=== PATIENT | female | born 1960 | race Caucasian/White ===

== ENCOUNTER 2020-04-09 10:43 | Observation (INO) ==
[2020-04-09] MEDS ORDERED: fentaNYL citrate 100 MCG/2 ML VIAL ONE (11:38)
[2020-04-09] MEDS ORDERED: MIDAZOLAM HCL 5 MG/ML 1 ML VIAL ONE (11:38)
--- NOTE | 2020-04-09 11:49 | History & Physical Bridge Note ---
Date of Service April 09, 2020 History & Physical Bridge Note I have examined the patient, reviewed the History & Physical and in the interval since the performance of the History & Physical I have noted the following changes of clinical significance: no changes noted
--- NOTE | 2020-04-09 11:49 | Pre Anesthesia Assessment ---
Date of Service April 09, 2020 Pre Sedation Assessment Vital Signs Temp Pulse Resp BP Pulse Ox 04/09/20 11:41 98.2 F 69 16 111/62 98 Pre-Sedation Airway Assessment Smoking Status: Current every day smoker (STARTED AT AGE 16) Short, Thick Neck: No Thyromental Distance: > or= 3.5 Finger Breadths Oral Cavity: + WNL Mallampati Class: I ASA: ASA3 NPO Status Date of Last Intake of Fluids: 04/08/20 Time of Last Intake of Fluids: 21:30 Date of Last Intake of Solid Food: 04/08/20 Time of Last Intake of Solid Foods: 21:30 Notes The planned sedation has been discussed with the patient. Informed Consent was obtained. I have identified the patient, determined the appropriateness of sedation and have assessed the patient immediately prior to the procedure. All medicine(s) and interventions are by my order.
--- NOTE | 2020-04-09 14:03 | Procedure Note ---
Procedure Note: Bronchoscopy Procedure PREOPERATIVE DIAGNOSIS: Right lung mass with mediastinal adenopathy POSTOPERATIVE DIAGNOSIS: Same as above RAPID ON SITE POSITIVE LYH NODES FOR MALIGNANCY INCLUDE: 4L and 4 suspicious for possible malignancy PROCEDURES PERFORMED: Endobronchial ultrasound with transbronchial needle aspiraion PROCEDURALIST: Rito Sierra MD WIRE STRAIGHTENER: None. ANESTHESIA: Local regional using 1% lidocaine and concious sedation as noted in the EMR and note. For milligrams of IV Versed and 175 mcg of fentanyl were used for the procedure INDICATIONS FOR PROCEDURE: The procedures were explained to the patient. All risks, benefits, and options were discussed. The risks include but were not limited to bleeding, infection, and pneumothorax. All questions were answered, and the patient wished for us to proceed with the procedure. DESCRIPTION OF PROCEDURE: The bronchoscope was inserted through the mouth. Vocal cords were moving normally. Alysa and trachea appeared sharp and normal. Minimal secretions were noted bilaterally. We then switched over to endobronchial ultrasound and were able to visualize patient's 11 R, 10 R, 7, 11 L, 10 L, 4R and 4L. Numerous passes of stations 11 R, 7, 4R and 4L were performed. Suspicious material was seen on the biopsy samples. Final pathology will be pending. There was some bleeding noted throughout the procedure and biopsy sites. This was controlled with saline. Roughly 10 mL of blood loss was seen. The scope was withdrawn to the trachea and no significant bleeding was noted afterwards. Scope was then completely withdrawn. Patient had some issues with oxygenation post procedure and was difficult to arouse. She is currently on 15 L of oxygen via oxygen mask. She was given a DuoNeb. She is slowly starting to arouse. Post procedure chest x-ray is pending. Await biopsy results.
--- NOTE | 2020-04-09 14:41 | XRay Report ---
XR chest 1V portable CLINICAL HISTORY: post bronchoscopy with bx COMPARISON STUDY: Chest CT March 03, 2020. PET/CT April 02, 2020. FINDINGS: There is no pneumothorax following bronchoscopy. Note is again made of a right upper lobe n odule. There is no evidence for pulmonary edema. Cardiac size is normal. There is mild left basilar o pacity. IMPRESSION: 1. No pneumothorax following bronchoscopy. Redemonstration of the right upper lobe nodule. 2. Mild left basilar opacity. ACT 112: Negative or not required by law. Electronically signed by: Clint Welch M.D. 04/09/2020 2:40 PM
[2020-04-09] MEDS ORDERED: ONDANSETRON INJ 2 MG/ML 2 ML VIAL ONE (15:22)
--- NOTE | 2020-04-09 17:07 | History & Physical Report ---
Date of Service April 09, 2020 History of Present Illness Primary Care Provider: Felisa Grimes MD Allergies Allergy/AdvReac Type Severity Reaction Status Date / Time No Known Allergies Allergy Verified 03/13/20 08:52 Home Medications Medication Instructions Recorded Confirmed Type albuterol sulfate 90 mcg/actuation 2 inh INHALATION QID PRN #6.7 g 02/11/20 03/13/20 Rx aerosol inhaler tiotropium bromide 2.5 2 puff INHALATION DAILY #4 g 03/12/20 03/13/20 Rx mcg/actuation mist for inhalation azithromycin 250 mg tablet See Rx Instructions PO .COMPLEX #6 03/13/20 03/13/20 Rx tab Past Med/Surg History Surgical History S/P appendectomy S/P removal of right ovary S/P tooth extraction Family History Other Breast cancer Colorectal cancer Diabetes Myocardial infarction Ovarian cancer Prostate cancer Social History Smoking Status: Current every day smoker (STARTED AT AGE 16) Age Started Using Tobacco: 16; packs per day: 2; Cigarettes Per Day: 40; Second Hand Exposure: Yes; Hx Alcohol Use: No Hx Substance Use: No Preferred Language: Austrian Visual Impairment: No Limitations Hearing Ability: Normal marital status: Single Current Living Situation Comment: lives with sister 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, Regularly: Yes Physical Activity Frequency: Does not Exercise Physical Activity Frequency Comment: physical job Seatbelt Use: always Results & Data Results & Data ([facility]) Vital Signs (Past 12 Hours) Vital Signs Temp Pulse Pulse Resp BP Pulse Ox 04/09/20 16:45 80 12 94/58 L 88 L 04/09/20 16:30 84 12 102/56 L 88 L 04/09/20 16:15 71 12 96/56 L 92 04/09/20 16:00 70 12 108/65 92 04/09/20 15:45 71 12 114/67 92 04/09/20 15:43 91 04/09/20 15:30 74 12 111/70 92 04/09/20 15:15 73 12 118/63 92 04/09/20 15:00 71 12 111/66 92 04/09/20 14:45 71 12 107/71 92 04/09/20 14:30 64 12 107/66 92 04/09/20 14:15 63 12 95/64 L 92 04/09/20 14:00 70 12 100/59 L 92 04/09/20 13:45 60 12 119/71 92 04/09/20 13:40 65 16 122/61 94 04/09/20 13:35 62 16 114/62 92 04/09/20 13:30 75 16 133/66 94 04/09/20 13:25 59 L 12 126/69 93 04/09/20 13:20 70 12 105/59 L 92 04/09/20 13:15 68 12 115/60 93 04/09/20 13:10 80 12 88/58 L 92 04/09/20 13:05 77 12 105/59 L 94 04/09/20 13:00 78 12 96/57 L 96 04/09/20 12:55 74 16 98/65 L 04/09/20 12:50 75 16 113/60 96 04/09/20 12:45 72 12 88/46 L 92 04/09/20 12:40 71 12 89/40 L 93 04/09/20 12:35 70 10 L 97/56 L 91 04/09/20 12:30 80 10 L 107/60 92 04/09/20 12:25 87 16 133/69 94 04/09/20 12:20 84 16 106/56 L 95 04/09/20 12:15 68 12 130/70 93 04/09/20 11:41 36.8 C 69 16 111/62 98 Code Status & VTE Plan VTE Prophylaxis Plan VTE Prophylaxis will be ordered: Yes PG Care Time/CCT Total # of Minutes Spent Total Time Spent with Patient: Total time spent is greater than 50% in coordination of care (as documented) at patient's floor/unit and/or counseling patient: Coding
--- NOTE | 2020-04-09 17:22 | History & Physical Report ---
Date of Service April 09, 2020 Assessment & Plan (1) Lung mass: Patient with a 3 cm right-sided lung mass referred to Dr. Sierra for outpatient EBUS and mediastinal biopsy The patient became hypoxic during the procedure. She required 2 L of supplemental oxygen via nasal cannula to maintain SaO2 greater than 90% We will admit the patient to the medical floor overnight for observation Repeat two-view chest x-ray in the morning Continue Brio Ellipta and Incruse Ellipta Duo nebs as needed Repeat CBC in the morning Pulmonary will be consulted to follow (2) COPD (chronic obstructive pulmonary disease): Patient list of COPD as an outpatient No evidence of pulmonary function testing PFTs are being set up as an outpatient For now, we will admit and continue on Brio Ellipta as well as Incruse Ellipta to provide ICS/LABA/AC coverage Continue supplemental oxygen to maintain SaO2 between 88 and 92% (3) Tobacco use: Tobacco user since age 16 [id number] history Discussed need for complete abstinence Concern for malignancy in the lung We will discuss NicoDerm patch options with patient (4) DVT prophylaxis: The patient did have some endobronchial bleeding during the procedure At this time we will hold on chemical prophylaxis SCDs are ordered Ambulate as tolerated Please refer to Dr. Garcia's addendum for further additions and corrections. Admission and Anticipated Discharge Date Admission Date: 04/09/2020 History of Present Illness Primary Care Provider: Felisa Grimes MD Attending: Dr. Covarrubias This is a 60-year-old female that follows with Dr. Felisa Grimes at the [facility] [place]. She is referred as a new patient for evaluation of a 2.7 cm lung mass in the right lung. She was seen by Derick Simmons PA-C and referred for EBUS evaluation with Dr. Sierra. This was performed today. Patient did have some blood loss during the procedure and developed hypoxia. She had no acute distress. It was felt best that she be admitted overnight for observation and repeat chest x-ray in the morning. At this time she is on supplemental oxygen 2 L/min via nasal cannula and oxygenating well. She has no chest pain or tightness. She has no hemoptysis. She has a current every day smoker of approximately 1 pack/day ([id number] history). This was discussed with her in the outpatient arena regarding complete abstention. Dr. Sierra will be consulted to follow along with the pulmonary service. Although patient has a history of COPD she does not have PFTs on schedule. She also only use albuterol at home. She was recently put on Trelegy after the appointment with QUYNH Simmons. Patient has a past medical history including tobacco abuse of 1 pack/day. 2 cm right-sided lung nodule. COPD. Left wrist pain. The patient has no other acute complaints. Allergies Allergy/AdvReac Type Severity Reaction Status Date / Time No Known Allergies Allergy Verified 03/13/20 08:52 Home Medications Medication Instructions Recorded Confirmed Type albuterol sulfate 90 mcg/actuation 2 inh INHALATION QID PRN #6.7 g 02/11/20 03/13/20 Rx aerosol inhaler tiotropium bromide 2.5 2 puff INHALATION DAILY #4 g 03/12/20 03/13/20 Rx mcg/actuation mist for inhalation azithromycin 250 mg tablet See Rx Instructions PO .COMPLEX #6 03/13/20 03/13/20 Rx tab Past Med/Surg History Medical History (Updated 04/09/20 @ 17:18 by Ion Rai PA-C) COPD (chronic obstructive pulmonary disease) Lung mass Tobacco use Wrist pain, left Surgical History S/P appendectomy S/P removal of right ovary S/P tooth extraction all of them Family History Other Breast cancer Colorectal cancer Diabetes Myocardial infarction Ovarian cancer Prostate cancer Social History Smoking Status: Current every day smoker Age Started Using Tobacco: 16; packs per day: 2; Cigarettes Per Day: 40; Second Hand Exposure: No; Do You Dip or Chew Tobacco: No; Tobacco Cessation Education Requested by Patient: No Hx Alcohol Use: No Hx Substance Use: No Preferred Language: Welsh Communication Ability: Effective Visual Impairment: No Limitations Hearing Ability: Normal Information Security Consultant Required: No Beliefs That Will Affect Care: None marital status: Single Current Living Situation: Family Current Living Situation Comment: lives w/ sister, georgi 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 Other Information That Helps Us Care for You: No Feels Safe at Home: Yes Safety Concerns: Feels Safe At This Time Dental Care, Regularly: Yes Physical Activity Frequency: Does not Exercise Physical Activity Frequency Comment: physical job Seatbelt Use: always Assistive Devices: Glasses Assistive Devices Comment: pt left glasses in the car Review of Systems Review of Systems: All systems reviewed & are unremarkable except as noted in HPI & below Physical Exam Physical Exam: GENERAL : No acute distress EYES: No icterus, gaze conjugate NOSE: No evidence of epistaxis MOUTH: No lesions or candidiasis NECK: Supple LUNGS: Scattered bronchospasm. No rales or rhonchi appreciated HEART: Regular, rate controlled ABDOMEN: Soft, NT, ND, BS Present EXTREMITIES: No LE edema, pedal pulses intact NEURO: A&OX3 Constitutional: WD/WN, vitals as above Eyes: normal visual antonio by confrontation and + anicteric sclerae Neck: normal visual inspection and trachea midline Respiratory: normal respiratory effort; no respiratory distress Auscultation: no crackles and no wheezes Cardiovascular: Rate/Rhythm: regular rate and regular rhythm Gastrointestinal (Abdomen): Inspection/Auscultation: abdomen not distended Percussion/Palpation: abdomen soft; abdomen nontender Musculoskeletal: Head/Neck/Chest: normocephalic and head atraumatic Neg for peripheral LE edema, + pedal pulses Skin: no rashes, warm and dry Neurologic: awake; not confused Speech / Cognition: normal speech Psychiatric: A+Ox3, euthymic affect Lymphatic: Exam as done by Mary Covarrubias DO Results & Data Results & Data ([facility]) Vital Signs (Past 12 Hours) Vital Signs Temp Pulse Pulse Resp BP Pulse Ox 04/09/20 16:45 80 12 94/58 L 88 L 04/09/20 16:30 84 12 102/56 L 88 L 04/09/20 16:15 71 12 96/56 L 92 04/09/20 16:00 70 12 108/65 92 04/09/20 15:45 71 12 114/67 92 04/09/20 15:43 91 04/09/20 15:30 74 12 111/70 92 04/09/20 15:15 73 12 118/63 92 04/09/20 15:00 71 12 111/66 92 04/09/20 14:45 71 12 107/71 92 04/09/20 14:30 64 12 107/66 92 04/09/20 14:15 63 12 95/64 L 92 04/09/20 14:00 70 12 100/59 L 92 04/09/20 13:45 60 12 119/71 92 04/09/20 13:40 65 16 122/61 94 04/09/20 13:35 62 16 114/62 92 04/09/20 13:30 75 16 133/66 94 04/09/20 13:25 59 L 12 126/69 93 04/09/20 13:20 70 12 105/59 L 92 04/09/20 13:15 68 12 115/60 93 04/09/20 13:10 80 12 88/58 L 92 04/09/20 13:05 77 12 105/59 L 94 04/09/20 13:00 78 12 96/57 L 96 04/09/20 12:55 74 16 98/65 L 04/09/20 12:50 75 16 113/60 96 04/09/20 12:45 72 12 88/46 L 92 04/09/20 12:40 71 12 89/40 L 93 04/09/20 12:35 70 10 L 97/56 L 91 04/09/20 12:30 80 10 L 107/60 92 04/09/20 12:25 87 16 133/69 94 04/09/20 12:20 84 16 106/56 L 95 04/09/20 12:15 68 12 130/70 93 04/09/20 11:41 36.8 C 69 16 111/62 98 Laboratory Results Labs were completed on 04/03/2020 as an outpatient. Sodium 139, potassium 4.7, chloride 108, carbon dioxide 28, BUN 18, creatinine 0.9, glucose 92, WBC 8.43, RBC 4.63, hemoglobin 14.6, hematocrit 43.4, platelet count 307 Diagnostic Findings 03/03/2020: CT scan of chest: Patient has an irregular marginated pleural- based right upper lobe pulmonary mass measuring 27 mm x 22 mm x 18 mm. There are mildly enlarged mediastinal lymph nodes. There is a 13 mm precarinal lymph node. There is a 10.5 mm lower right paratracheal lymph node. The the no evid ence of any lytic or blastic bony lesions. Emphysematous changes throughout. 02/11/2020: Chest x-ray: 2.5 cm masslike opacity in the lateral subpleural right upper lung. Code Status & VTE Plan Code Status Level 1 full resuscitation VTE Prophylaxis Plan VTE Prophylaxis will be ordered: Yes Reason for no VTE drug order: Contraindicated (Patient with bleeding post EBUS) Supervising Physician Co-Signing Physician Notes Pt seen and examined by me. Denies chest pain or SOB currently. Tolerating PO without issue. Denies prior home O2 use. Agree with HPI/ROS as noted by PA See above for my exam in PE section Agree with plan as outlined above Hypoxic episode s/p bronch earlier today Maintaining sats in the low 90s on 2L O2 Monitor and wean O2 as able PG Care Time/CCT Total # of Minutes Spent Total Time Spent with Patient: Total time spent is greater than 50% in coordination of care (as documented) at patient's floor/unit and/or counseling patient: 45 minutes independent of any procedures Coding Level of Care Code 52445 OBS Care - Level 3 Diagnoses Lung mass R91.8 COPD (chronic obstructive pulmonary disease) J44.9 COPD type: unspecified COPD Tobacco use Z72.0 DVT prophylaxis Z29.9 Time Spent (min) 45 (1) COPD (chronic obstructive pulmonary disease) COPD type: unspecified COPD Qualified Code(s): J44.9 - Chronic obstructive pulmonary disease, unspecified
[2020-04-09] MEDS ORDERED: MAGNESIUM HYDROXIDE SUSP 30 ML UDC PO PRN (17:49)
[2020-04-09] MEDS ORDERED: POLYETHYLENE (MIRALAX) 17 GM PACK PO PRN (17:49)
[2020-04-09] MEDS ORDERED: ACETAMINOPHEN 325 MG TAB PO PRN (17:49)
[2020-04-09] MEDS ORDERED: ONDANSETRON INJ 2 MG/ML 2 ML VIAL IV PRN (17:49)
[2020-04-09] MEDS ORDERED: ALBUT/IPRATROP 3MG/0.5MG NEB 3 ML VIAL NEB PRN (17:49)
[2020-04-09] MEDS ORDERED: ALUMINUM/MAGNESIUM SUSP 30 ML UDC PO PRN (17:49)
[2020-04-09] MEDS: UMECLIDINIUM BROMIDE 62.5MCG/BLISTER 7 PUFFS/INHALER INH SCH (20:30)
[2020-04-09] MEDS: NICOTINE 21 MG/24 HR TDSY TD SCH (20:30)
[2020-04-09] MEDS: FLUTICASONE/VILANTEROL 100/25MCG 14 PUFFS/INHALER INH SCH (20:31)
[2020-04-09] MEDS ORDERED: methylPREDNISolone 40 MG in SYRINGE 0 ML IV ONE (21:50)
[2020-04-10 07:49] LABS: Basophils # (auto) 0.01 K/uL (0-0.2); Basophils % (auto) 0.1 %; Eosinophils # (auto) 0.01 K/uL (0-0.5); Eosinophils % (auto) 0.1 %; Hemoglobin 14.2 g/dL (12.0-16.0); Immature Granulocytes # (auto) 0.03 K/uL (0.00-0.02); Immature Granulocytes % (auto) 0.4 %; Lymphocytes # (auto) 1.76 K/uL (1.2-3.4); Lymphocytes % (auto) 20.7 %; Mean Corpuscular Hemoglobin 31.3 pg (25-34); Mean Corpuscular Hgb Conc 33.8 g/dL (32-36); Mean Corpuscular Volume 92.7 fL (80-100); Monocytes # (auto) 0.26 K/uL (0.11-0.59); Monocytes % (auto) 3.1 %; Neutrophils # (auto) 6.43 K/uL (1.4-6.5); Neutrophils % (auto) 75.6 %; Platelet Count 279 K/uL (130-400); Red Blood Count 4.53 M/uL (4.2-5.4)
[2020-04-10 08:09] LABS: BUN Creatinine Ratio 14.7 (10-20); Calcium 9.8 mg/dl (8.5-10.1); Creatinine Clr Calc Pharmacy 37.8 ml/min; Est GFR (African American) 81.6; Est GFR (Non-African American) 70.4; Potassium 4.8 mmol/L (3.5-5.1)
[2020-04-10] MEDS: UMECLIDINIUM BROMIDE 62.5MCG/BLISTER 7 PUFFS/INHALER INH SCH (09:02)
[2020-04-10] MEDS: FLUTICASONE/VILANTEROL 100/25MCG 14 PUFFS/INHALER INH SCH (09:02)
[2020-04-10] MEDS: NICOTINE 21 MG/24 HR TDSY TD SCH (09:03)
--- NOTE | 2020-04-10 09:58 | XRay Report ---
XR chest 2V PA/lateral CLINICAL HISTORY: Hypoxia COMPARISON STUDY: PET/CT April 02, 2020. Chest radiograph September 07, 2020. FINDINGS: Right upper lobe nodule is again noted. There is no pneumothorax or pleural effusion. Emphy sema is present with lung hyperexpansion. Cardiac size is normal. Mediastinal contours are normal. A few patchy bilateral airspace opacities are noted. IMPRESSION: 1. A few patchy bilateral airspace opacities which may reflect an infectious process. 2. Emphysema. 3. Redemonstration of the right upper lobe nodule. ACT 112: Negative or not required by law. Electronically signed by: Clint Welch M.D. 04/10/2020 9:56 AM
--- NOTE | 2020-04-10 10:14 | Electrocardiogram Report ---
Test Reason : Blood Pressure : / mmHG Vent. Rate : 076 BPM Atrial Rate : 076 BPM P-R Int : 114 ms QRS Dur : 078 ms QT Int : 380 ms P-R-T Axes : 052 083 062 degrees QTc Int : 427 ms Normal sinus rhythm Low voltage QRS Incomplete right bundle branch block Borderline ECG When compared with ECG of 09-APR-2020 17:28, (unconfirmed) No significant change was found Confirmed by Isidoro Armstrong ([id number]) on 04/10/2020 10:14:01 AM Referred By: Rito Sierra Confirmed By:Jose Antonio Armstrong
--- NOTE | 2020-04-10 11:50 | Pulmonary Consultation ---
Date of Consultation April 10, 2020 Assessment & Plan (1) Hypoxia: Post procedure hypoxia has resolved. I would recommend doing a home oxygen evaluation prior to discharge. I recommend completing a course of 5 days of prednisone, 40 mg daily for possible COPD exacerbation. No antibiotics required at this time. No leukocytosis seen. Afebrile. Her hemoptysis should resolve over the next day or 2 and this is related to the biopsy. Her hemoglobin is stable. Continue her home inhalers. Will need PFTs as an outpatient. We will discussed the results of her biopsy next week. She has an appointment scheduled with Derick Simmons. She is safe to be discharged home at this time. Thank you for the consult. (2) Lung mass: (3) Tobacco use: (4) Hemoptysis: (5) COPD exacerbation: History of Present Illness Reason for Consultation: Hypoxia post-bronchoscopy Requesting Physician: Hospitalist Attending Physician: Hospitalist service History of Present Illness 60-year-old female with past medical history of [id number]-[id number]-year smoking history who presented as an outpatient yesterday for bronchoscopy that was performed by me. I performed an endobronchial ultrasound and biopsies of several lymph node stations. Preliminary diagnosis is that of likely ma lignancy. Final pathology is pending. She had postprocedure hypoxia after receiving 4 mg of Versed and 175 mcg of fentanyl. She also had some mild hemoptysis this morning, but no further hemoptysis this afternoon. She also noted epistaxis this morning. She denies any chest pain. She is in good spirits and eager to go home. She was asking about when she can go back to work. She works in the [employer] services. She does have a desire to continue smoking but notes that the nicotine patch is helping. She previously served in the [employer]. She does note that she had approximately a 10 to 20 pound weight loss over the last 2 years. Her appetite today is generally good. She was given 40 mg of IV Solu-Medrol yesterday. She follows with QUYNH Simmons as an outpatient. She has an outpatient stress test scheduled. She denies any chest pain. She denies any shortness of breath. No fevers or chills. I reviewed the chest x-ray from this morning which did not demonstrate any pneumothorax. Bilateral emphysema was seen. Right upper lobe nodule was seen as well. Allergies Allergy/AdvReac Type Severity Reaction Status Date / Time No Known Allergies Allergy Verified 03/13/20 08:52 Home Medications Medication Instructions Recorded Confirmed Type albuterol sulfate 90 mcg/actuation 2 inh INHALATION QID PRN #6.7 g 02/11/20 03/13/20 Rx aerosol inhaler tiotropium bromide 2.5 2 puff INHALATION DAILY #4 g 03/12/20 03/13/20 Rx mcg/actuation mist for inhalation azithromycin 250 mg tablet See Rx Instructions PO .COMPLEX #6 03/13/20 03/13/20 Rx tab Patient History Medical History COPD (chronic obstructive pulmonary disease) Lung mass Tobacco use Wrist pain, left Surgical History S/P appendectomy S/P removal of right ovary S/P tooth extraction all of them Family History Other Breast cancer Colorectal cancer Diabetes Myocardial infarction Ovarian cancer Prostate cancer Social History Smoking Status: Current every day smoker Age Started Using Tobacco: 16; packs per day: 2; Cigarettes Per Day: 40; Second Hand Exposure: No; Do You Dip or Chew Tobacco: No; Tobacco Cessation Education Requested by Patient: No Hx Alcohol Use: No Hx Substance Use: No Preferred Language: Korean Communication Ability: Effective Visual Impairment: No Limitations Hearing Ability: Normal Fish Flipper Required: No Beliefs That Will Affect Care: None marital status: Single Current Living Situation: Family Current Living Situation Comment: lives w/ sister, georgi 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 Mild cachexia noted. Eyes: PERRL, conjunctivae normal, anicteric sclerae ENMT: external ear and nose normal, oropharynx normal Neck: normal visual inspection Respiratory: No wheezing rubs or rales. No use of accessory muscles. Saturating 95% on room air. Cardiovascular: RRR, no murmur, no edema Gastrointestinal (Abdomen): normal bowel sounds, soft, nontender, no hepatosplenomegaly Musculoskeletal: no cyanosis or clubbing, extremities motor strength 5/5 Skin: no rashes, warm and dry Neurologic: PERRL, EOMI, accommodation nl, no face palsy, no dysarthria Psychiatric: A+Ox3, euthymic affect Results & Data Results & Data ([facility]) Vital Signs (Past 12 Hours) Vital Signs Temp Pulse Resp BP Pulse Ox 04/10/20 09:30 95 04/10/20 07:30 95 04/10/20 07:22 98.1 F 76 15 100/65 95 04/10/20 03:52 98.4 F 85 14 109/64 95 I reviewed the vital signs, labs and imaging PG Care Time/CCT Total # of Minutes Spent Total Time Spent with Patient: Total time spent is greater than 50% in coordination of care (as documented) at patient's floor/unit and/or counseling patient: Coding Level of Care Code 65915 Inpt Consult Level 5 Diagnoses Hypoxia R09.02 Lung mass R91.8 Tobacco use Z72.0 Hemoptysis R04.2 COPD exacerbation J44.1
--- NOTE | 2020-04-10 14:18 | Discharge Summary ---
Date of Service April 10, 2020 Admission HPI Per Admitting Provider Attending: Dr. Covarrubias This is a 60-year-old female that follows with Dr. Felisa Grimes at the [facility] internal medicine office. She is referred as a new patient for evaluation of a 2.7 cm lung mass in the right lung. She was seen by Derick Simmons PA-C and referred for EBUS evaluation with Dr. Sierra. This was performed today. Patient did have some blood loss during the procedure and developed hypoxia. She had no acute distress. It was felt best that she be admitted overnight for observation and repeat chest x-ray in the morning. At this time she is on supplemental oxygen 2 L/min via nasal cannula and oxygenating well. She has no chest pain or tightness. She has no hemoptysis. She has a current every day smoker of approximately 1 pack/day (24-lhfy-exii history). This was discussed with her in the outpatient arena regarding complete abstention. Dr. Sierra will be consulted to follow along with the pulmonary service. Although patient has a history of COPD she does not have PFTs on schedule. She also only use albuterol at home. She was recently put on Trelegy after the appointment with QUYNH Simmons. Patient has a past medical history including tobacco abuse of 1 pack/day. 2 cm right-sided lung nodule. COPD. Left wrist pain. The patient has no other acute complaints. Admission Exam Per Admitting Provider Physical Exam: GENERAL : No acute distress EYES: No icterus, gaze conjugate NOSE: No evidence of epistaxis MOUTH: No lesions or candidiasis NECK: Supple LUNGS: Scattered bronchospasm. No rales or rhonchi appreciated HEART: Regular, rate controlled ABDOMEN: Soft, NT, ND, BS Present EXTREMITIES: No LE edema, pedal pulses intact NEURO: A&OX3 Exam is done by Ion monroy PA-C on admission Constitutional: WD/WN, vitals as above Eyes: normal visual antonio by confrontation and + anicteric sclerae Neck: normal visual inspection and trachea midline Respiratory: normal respiratory effort; no respiratory distress Auscultation: no crackles and no wheezes Cardiovascular: Rate/Rhythm: regular rate and regular rhythm Gastrointestinal (Abdomen): Inspection/Auscultation: abdomen not distended Percussion/Palpation: abdomen soft; abdomen nontender Musculoskeletal: Head/Neck/Chest: normocephalic and head atraumatic Neg for peripheral LE edema, + pedal pulses Skin: no rashes, warm and dry Neurologic: awake; not confused Speech / Cognition: normal speech Psychiatric: A+Ox3, euthymic affect Lymphatic: Exam as done by Mary Covarrubias DO Principal Diagnosis Hypoxia, hemoptysis Discharge Exam GENERAL : No acute distress EYES: No icterus, gaze conjugate NOSE: No evidence of epistaxis MOUTH: No lesions or candidiasis NECK: Supple LUNGS: CTA B/L, no wheezes, rales or rhonchi HEART: Regular, rate controlled ABDOMEN: Soft, NT, ND, BS Present EXTREMITIES: No LE edema, pedal pulses intact NEURO: A&OX3 Discharge Data Allergies Allergy/AdvReac Type Severity Reaction Status Date / Time No Known Allergies Allergy Verified 03/13/20 08:52 Consultations 04/09/20 18:27 Consult Pulmonology Routine Procedures Performed Operation Date: 04/09/20 11:00 Actual Procedures p Endobronchial Ultrasound (EBUS) - [place] [address] Procedure NoteSigned Patient: FRACISCO SIMMONS Date: 04/09/20MR#: [id number] [facility][id number] Phy: Felisa Grimes MDBirth Date: 1960Fam Phy:Age: 60Location: CCSex: F Room/Bed: cc: ~ *NOTICE TO RECEIVING LIBERTARIAN/AGENCY This information is strictly Confidential and protected under [place] law. [place] law prohibits you from making any further disclosure of this information unless further disclosure is expressly permitted by the written consent of the person to whom it pertains or is authorized by law. A general authorization for the release of medical or other information is not sufficient for this purpose. Hospital accepts no responsibility if the information is made available to any other person, INCLUDING THE PATIENT. Procedure Note: Bronchoscopy Procedure PREOPERATIVE DIAGNOSIS: Right lung mass with mediastinal adenopathy POSTOPERATIVE DIAGNOSIS: Same as above RAPID ON S[facility] NOD[facility]IGNANC[facility] INCLUDE: 4L and 4 suspicious for possible malignancy PROCEDURES PERFORMED: Endobronchial ultrasound with transbronchial needle aspiraion PROCEDURALIST: Rito Sierra MD GALLERY OR MUSEUM GUIDE: None. ANESTHESIA: Local regional using 1% lidocaine and concious sedation as noted in the EMR and note. For milligrams of IV Versed and 175 mcg of fentanyl were used for the procedure INDICATIONS FOR PROCEDURE: The procedures were explained to the patient. All risks, benefits, and options were discussed. The risks include but were not limited to bleeding, infection, and pneumothorax. All questions were answered, and the patient wished for us to proceed with the procedure. DESCRIPTION OF PROCEDURE: The bronchoscope was inserted through the mouth. Vocal cords were moving normally. Alysa and trachea appeared sharp and normal. Minimal secretions were noted bilaterally. We then switched over to endobronchial ultrasound and were able to visualize patient's 11 R, 10 R, 7, 11 L, 10 L, 4R and 4L. Numerous passes of stations 11 R, 7, 4R and 4L were performed. Suspicious material was seen on the biopsy samples. Final pathology will be pending. There was some bleeding noted throughout the procedure and biopsy sites. This was controlled with saline. Roughly 10 mL of blood loss was seen. The scope was withdrawn to the trachea and no significant bleeding was noted afterwards. Scope was then completely withdrawn. Patient had some issues with oxygenation post procedure and was difficult to arouse. She is currently on 15 L of oxygen via oxygen mask. She was given a DuoNeb. She is slowly starting to arouse. Post procedure chest x-ray is pending. Await biopsy results. Signed By:<Electronically signed by Rito Sierra MD>04/09/20 [id number] Hospital Course (1) Hypoxia: Post procedure hypoxia has resolved. Discharge on 5 days of prednisone, 40 mg daily for possible COPD exacerbation. No antibiotics needed Hemoptysis should resolve over the next day or 2 and this is related to the biopsy. Continue Trelegy 1 inhalation daily Patient received Brio Ellipta and Incruse Ellipta during hospital stay. This should be held as Trelegy is a combination of these 2 drugs (2) Lung mass: Patient with a 3 cm right-sided lung mass referred to Dr. Sierra for outpatient EBUS and mediastinal biopsy Pathology is still pending at the time of discharge Patient will follow up in the outpatient pulmonary clinic for diagnostic results Patient advised to keep all of her outpatient appointments (3) Tobacco use: Tobacco user since age [age]-rblh-brxy history Discussed need for complete abstinence Concern for malignancy in the lung Patient is aware Discharged home with tobacco cessation pamphlet (4) Hemoptysis: (5) COPD exacerbation: Total Time Total Time Spent Total Time Spent (In Minutes): 34 minutes Total Time Includes: Examination of the Patient, Discharge Planning, Medication Reconciliation and Communication With Other Providers Discharge Plan Discharge Items Patient Disposition: Home - Self-Care Reason For Visit: Lung Mass Discharge Diagnosis: Lung mass and mediastinal adenopathy Activity: Resume your previous activity Lifting: Gradually increase as tolerated Bathing: No limitations Exercise/Sports: Gradually increase as tolerated Weightbearing: Full weightbearing Non-emergency contact: Primary Care Provider Call non-emergency contact if: your symptoms worsen, your pain is not controlled, you have a fever and your temperature is above 101 Follow-up/Referrals: Felisa Grimes MD [Primary Care Provider] - Diet: Regular Addtl Attending Provider Instructions: You may have some soreness of your throat for 1 to 2 days after the procedure. There may also be some blood when you cough. This should resolve over the course of the day. Please go to the emergency department if this becomes significant. Pending Studies at Discharge: Yes Studies:: Pathology from bronchoscopy/EBUS Stand-Alone Forms: [facility], Smoking Cessation Medications and DC Order Prescriptions: New prednisone 20 mg tablet 40 mg PO DAILY 5 Days Qty: 10 RF: 0 Continued Spiriva Respimat 2.5 mcg/actuation mist 2 puff inhalation DAILY Qty: 4 RF: 2 azithromycin 250 mg tablet See Rx Instructions PO .COMPLEX Qty: 6 RF: 0 wwvubnqyqcw-nkhvwvhiz-kgvmuexf [Trelegy Ellipta] 200-62.5-25 mcg blister with device RF: 0 peampdbyvtk-frndfdldb-vwynriig [Trelegy Ellipta] 100-62.5-25 mcg blister with device RF: 0 albuterol sulfate 90 mcg/actuation HFA aerosol inhaler 2 inh inhalation QID PRN (Reason: shortness of breath or wheezing) Qty: 6.7 RF: 3 Discharge Orders: Discharge Order (Routine); Ordered 04/10/20 Ordered By: Ion Pak/Other Patient Handouts: COPD Using Inhalers, COPD Using Inhalers Admission Data Admit Date/Time: 04/09/20 17:04 Attending Provider: Rito Sierra Admit Provider: Rito Sierra Primary Care Provider: Felisa Grimes Other Providers: Rito Sierra Other Interventions: Discharge Summary Assessment (RN) Last Done: 04/10/20 14:28 Supervising Physician Co-Signing Physician Notes Pt seen and examined by me. Denies chest pain or SOB currently. Tolerating PO without issue. Denies prior home O2 use. Agree with HPI/ROS/ DISCHARGE SUMMARY as noted by PA My exam did not defer from one presented above, Agree with plan as outlined above Hypoxic episode resolved These occurred s/p bronch earlier today Coding Level of Care Code D/C Day Management >30 mins Diagnoses Hypoxia R09.02 Lung mass R91.8 Tobacco use Z72.0 Hemoptysis R04.2 COPD exacerbation J44.1 Time Spent (min) 34
--- NOTE | 2020-04-21 12:08 | Coding Query ---
CODING QUERY Dr. Sierra DOS: 04-10-20 To promote full compliance with coding requirements relating to patient care, provider participation is requested in all cases of strand buncher fine wire uncertainty. Please assist us with the question(s) below: Coding Question(s): Documentation states that the patient was admitted due to hypoxia due to becoming hypoxic during the procedure. Please clarify if this was a complication due to a cause and effect relationship between the care provided and the condition or if this was an expected occurrence due to the fact that the patient is a smoker and has COPD. Thank you. Physician's Response(s): Patient was admitted to the hospital due to hypoxia periprocedurally likely related to hypoventilation induced from medication she received for conscious sedation. She does have underlying COPD and lung cancer from her tobacco abuse which contributed to her acute illness. Thank you Marietta Austin [facility] Principal Diagnosis: "that condition established after study, to be chiefly responsible for occasioning the admission of the patient to the hospital for care." Co-Existing Principal Diagnosis: "when two or more diagnoses equally meet the criteria for principal diagnosis as determined by the circumstances of admission, diagnostic work up, and/or therapy provided, and the Alphabetic Index, Tabular List, or another coding guideline does not provide sequencing direction, any one of the diagnoses may be sequenced first." "When the physician has documented what appears to be a current diagnosis in the body of the record, but has not included the diagnosis in the final diagnostic statement, the physician should be asked whether the diagnosis should be added." (Source Coding Clinic 2 QTR90. p3-4) NICK
== END 2020-04-10 14:42 | disposition home or self-care (01) ==
LOC: CC 10:43 → 3N 10:43

== ENCOUNTER 2020-09-29 09:20 | Inpatient (IN) ==
[2020-09-29] MEDS ORDERED: LORazepam 1 MG/2 ML VIAL IV STA (10:04)
[2020-09-29] MEDS ORDERED: SODIUM CHLORIDE 0.9% 500 ML IV SCH (10:15)
[2020-09-29 10:26] LABS: Basophils # (auto) 0.02 K/uL (0-0.2); Basophils % (auto) 0.5 %; Eosinophils # (auto) 0.03 K/uL (0-0.5); Eosinophils % (auto) 0.8 %; Hematocrit (blood only) 32.9 % (37-47); Hemoglobin 11.1 g/dL (12.0-16.0); Lymphocytes # (auto) 0.84 K/uL (1.2-3.4); Lymphocytes % (auto) 21.4 %; Mean Corpuscular Hgb Conc 33.7 g/dL (32-36); Mean Corpuscular Volume 106.8 fL (80-100); Mean Platelet Volume 9.2 fL (7.4-10.4); Monocytes # (auto) 0.46 K/uL (0.11-0.59); Monocytes % (auto) 11.7 %; Neutrophils # (auto) 2.58 K/uL (1.4-6.5); Neutrophils % (auto) 65.6 %; Platelet Count 396 K/uL (130-400); RDW Coefficient of Variation 15.5 % (11.5-14.5); RDW Standard Deviation 60.9 fL (36.4-46.3); Red Blood Count 3.08 M/uL (4.2-5.4); White Blood Count 3.93 K/uL (4.8-10.8)
--- NOTE | 2020-09-29 10:28 | CT Scan Report ---
CT SCAN OF THE BRAIN WITHOUT IV CONTRAST CLINICAL HISTORY: Vertigo. Lung cancer. COMPARISON STUDY: MRI of the brain dated 05/21/2020. TECHNIQUE: Unenhanced axial CT scan of the brain is performed from the vertex to the skull base. A d ose lowering technique was utilized adhering to the principles of ALARA. CT DOSE: 537.48 mGy.cm FINDINGS: Brain parenchyma: There are foci of edema within the high right frontal cortex, best seen on image #2 1 and in the left cerebellum seen on image #7. These are new from 05/21/2020 and highly suspicious for underlying metastatic disease. 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 There is no he morrhage or midline shift. There is no evidence of acute territorial ischemia by CT criteria. No ext ra-axial fluid collection is seen. Ventricles, sulci, cisterns: Normal in configuration. Intracranial vasculature: There is atherosclerotic calcification of the cavernous carotid arteries. Calvarium: Unremarkable. 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 The visualized paranas al sinuses are otherwise clear. The mastoid air cells are well pneumatized. Orbits: The bony orbits are grossly intact. IMPRESSION: 1. There are foci of edema within the high right frontal lobe and the left cerebellar hemisphere. The se are new from the 05/21/2020 MRI and highly suspicious for underlying metastatic disease. Correlatio n with a contrast-enhanced MRI of the brain is recommended for further assessment. 2. There is no hemorrhage, midline shift, or evidence of acute territorial ischemia by CT criteria. ACT 112: Negative or not required by law. Electronically signed by: Ion Goldsmith M.D. 09/29/2020 10:27 AM
[2020-09-29 10:34] LABS: Albumin Level 3.6 gm/dl (3.4-5.0); BUN Creatinine Ratio 11.4 (10-20); Calcium 8.7 mg/dl (8.5-10.1); Est GFR (African American) 95.9 ml/min; Est GFR (Non-African American) 82.8 ml/min; Magnesium 2.1 mg/dl (1.8-2.4); Potassium 4.1 mmol/L (3.5-5.1)
--- NOTE | 2020-09-29 10:35 | XRay Report ---
XR chest 1V portable CLINICAL HISTORY: Dizzy, cough, lung ca COMPARISON STUDY: PET/CT April 02, 2020. FINDINGS: Right internal jugular Bxahvt-l-Viiq is in place. There is no pneumothorax or pleural effus ion. There is no consolidation or evidence for pulmonary edema. Previously described right upper lobe lesion decrease in size since chest radiograph May 14, 2020. There may be adjacent pleural thickeni ng. Cardiac size is normal. IMPRESSION: 1. No acute cardiopulmonary findings. 2. Decrease in size of the previously described right upper lobe lesion. ACT 112: Negative or not required by law. Electronically signed by: Clint Welch M.D. 09/29/2020 10:34 AM
[2020-09-29 10:37] LABS: Albumin Globulin Ratio 1.2 (0.9-2); Bilirubin,Total 0.3 mg/dl (0.2-1); Total Protein 6.6 gm/dl (6.4-8.2)
--- NOTE | 2020-09-29 13:57 | Electrocardiogram Report ---
Test Reason : Blood Pressure : / mmHG Vent. Rate : 066 BPM Atrial Rate : 066 BPM P-R Int : 098 ms QRS Dur : 080 ms QT Int : 418 ms P-R-T Axes : 042 088 071 degrees QTc Int : 438 ms Poor data quality, interpretation may be adversely affected Sinus rhythm with short NE Otherwise normal ECG When compared with ECG of 09-APR-2020 17:58, No significant change was found Confirmed by Mynor Piedra ([id number]) on 09/29/2020 1:56:56 PM Referred By: REFERRED SELF Confirmed By:Mynor Piedra
[2020-09-29] MEDS ORDERED: dexAMETHasone 8 MG in SYRINGE 0 ML IV ONE (13:59)
--- NOTE | 2020-09-29 14:00 | History & Physical Report ---
Date of Service September 29, 2020 Assessment & Plan (1) Dizziness: Plan: 60yo female with history of lung adenocarcinoma s/p chemotherapy and radiation presenting with vertigo. Patient found to have area of edema noted on CT of the head that is concerning for metastatic disease. Dizziness may be secondary to BPPV, brain mets, less likely acute CVA -Admit to medical -Check MRI brain -Meclizine as needed -Fall precautions (2) Brain lesion: Plan: Patient with history of lung adenocarcinoma s/p chemo and XRT completion, CT with area of edema concerning for possible metastatic disease. Finding is new from MRI in May 2020 -Check MRI brain -Dexamethasone 8mg IV x 1 then 4mg IV BID -Consultation with Oncology and Radiation Oncology appreciate (3) COPD (chronic obstructive pulmonary disease): Plan: Chronic. Well managed at present on Trelegy Ellipta and PRN albuterol -Continue home medications -Continue to monitor (4) Adenocarcinoma of lung: Plan: As above, concern for new metastatic disease -MRI brain -Oncology consultation appreciated Plan: F/E/N - Heplock. Electrolytes WNL. Regular diet as tolerated Ppx - SCDs - will avoid chemoppx for now until brain finding is further identified Code - DNR/DNI per discussion with patient. Dispo - Admit to medical History of Present Illness Chief Complaint: Vertigo Primary Care Provider: Felisa Grimes MD Mansi Evans is a 60yo female with history of adenocarcinoma of the lung diagnosed in March 2020 s/p completion of XRT and chemotherapy with Taxol and Carboplatin. Patient woke this AM with vertigo. She had a brief syncopal event at home lasting several seconds. No head trauma/chest pain/palpitations/incontinence/tongue biting. Additionally she feels numbness of her hands and feet which she gets occasionally and has been linked with her prior chemotherapy treatments. Patient presently with dizziness. No additional complaints. She specifically denies MARSHALL/fever/chills/cough/SOB/abdominal pain/nausea/vomiting/diarrhea or constipation. She states she is eating well at home. She lives with her sister. ER Course: Ativan 1mg Dexamethasone 8mg IV NSS x 500mL Allergies Allergy/AdvReac Type Severity Reaction Status Date / Time No Known Allergies Allergy Verified 09/29/20 15:00 Home Medications Medication Instructions Recorded Confirmed Type albuterol sulfate 90 mcg/actuation 2 puff INHALATION QID 09/29/20 09/29/20 History aerosol inhaler fluticasone fur. 100 mcg-umeclid 1 inh INHALATION DAILY 09/29/20 09/29/20 History 62.5 mcg-vilant 25 mcg inhalat.powder (Trelegy Ellipta) Past Med/Surg History Medical History COPD (chronic obstructive pulmonary disease) Last exacerbation approx one month ago Encounter for pre-operative examination History of ovarian cancer SURGERY FOR - AGE 16 Lab test positive for detection of COVID-19 virus Lung cancer Tobacco use Wrist pain, left Surgical History History of anesthesia reaction AFTER BRONCHOSCOPY, HAD TO STAY OVERNIGHT D/T LOW OXYGEN LEVELS - APR 09-2020 History of bronchoscopy (04/09/20) History of surgery (~1976) RIGHT OVARY REMOVED, AND APPENDECTOMY (SAME SURGERY) S/P appendectomy S/P removal of right ovary (~1976) S/P tooth extraction (~10/2019) all of them Family History Sister Age: 64 Diabetes Lung cancer Endometrial ca Mother Diabetes Uncle , 3 paternal uncles and a first cousin Colorectal cancer Other Breast cancer Myocardial infarction Ovarian cancer Prostate cancer Social History Smoking Status: Current every day smoker Age Started Using Tobacco: 16; packs per day: 2; Years Smoked: 44; Cigarettes Per Day: 40; Second Hand Exposure: Yes; Hx Alcohol Use: No Hx Substance Use: No Preferred Language: Belarusian Communication Ability: Effective Visual Impairment: No Limitations Hearing Ability: Normal [employer] Required: No Beliefs That Will Affect Care: None marital status: Single Current Living Situation: Family Current Living Situation Comment: DANIEL QUIÑONES 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 How many Children do You have: 0 How many Children do You have Comment: 0 other: "I hate pills and needles" Feels Safe at Home: Yes Childhood Exposure to Second-Hand Smoke: Yes (dad smoked) Diet Comment: eats well caffeine: Yes (one pot of coffee daily; occasional Coca Cola) during the past year weight has: decreased > 10 lbs Dental Care, Regularly: Yes Physical Activity Frequency: Does not Exercise Physical Activity Frequency Comment: physical job Seatbelt Use: always Sunscreen Use: No Assistive Devices: Glasses Review of Systems Review of Systems: General: Patient denies fevers, chills, malaise, weight loss or weight gain Skin: Patient denies bruising, bleeding or rash HEENT: Patient denies headache, visual changes, sore throat, difficulty swallowing, stiff neck Cardio: Patient denies chest pain, palpitations, shortness of breath Pulmonary: Patient denies cough, wheeze GI: Patient denies abdominal pain, nausea, vomiting, diarrhea, constipation : Patient denies dysuria, frequency, urgency or hematuria Musculoskeletal: Patient denies swelling or pain of the joints, edema Neuro: Patient denies MARSHALL, weakness Psych: Patient denies depression, anxiety Physical Exam Physical Exam: General: thin female patient resting comfortably, NAD, non- toxic in appearance, AA&O x 4 Skin: warm, dry, intact, no rashes or lesions HEENT: NC/AT, PERRL, EOMI, anicteric sclera, conjunctiva without injection, external ear normal to inspection and nontender, nares patent, moist mucus membranes, dentition intact, no oropharyngeal lesions, neck supple, trachea midline, no LAD, no thyromegaly, no JVD Heart: +S1/S2, regular, no m/r/g, Mediport present right chest wall, no erythema, tenderness Lungs: equal air entry bilaterally, no rales/rhonchi/wheezes Abd: +BS, soft, NT/ND, no masses/organomegaly/ascites Ext: warm, 2+ pulses in UE/LE bilaterally, no clubbing/cyanosis or edema Neuro: nonfocal, patient AA&O x 4, speech intact, no facial droop, moving all extremities on command with equal strength 5/5 Results & Data Results & Data ([facility]) Vital Signs (Past 12 Hours) Vital Signs Temp Pulse Resp BP Pulse Ox 09/29/20 13:00 90 19 109/76 92 09/29/20 12:30 74 16 111/70 93 09/29/20 12:00 65 23 103/63 09/29/20 11:30 80 24 115/64 09/29/20 11:00 70 22 118/68 09/29/20 10:30 65 18 123/70 09/29/20 10:00 66 19 130/76 93 09/29/20 09:30 67 19 123/67 98 09/29/20 09:29 56 L 20 123/54 L 98 09/29/20 09:20 36.5 C 70 16 123/67 97 Laboratory Results Laboratory Results WBC 3.93 K/uL (4.8-10.8) L 09/29/20 09:40 RBC 3.08 M/uL (4.2-5.4) L 09/29/20 09:40 Hgb 11.1 g/dL (12.0-16.0) L 09/29/20 09:40 Hct 32.9 % (37-47) L 09/29/20 09:40 MCV 106.8 fL (80-100) H 09/29/20 09:40 MCH 36.0 pg (25-34) H 09/29/20 09:40 MCHC 33.7 g/dL (32-36) 09/29/20 09:40 RDW Std Deviation 60.9 fL (36.4-46.3) H 09/29/20 09:40 RDW Coeff of Jesús 15.5 % (11.5-14.5) H 09/29/20 09:40 Plt Count 396 K/uL (130-400) 09/29/20 09:40 MPV 9.2 fL (7.4-10.4) 09/29/20 09:40 Immature Gran % (Auto) 0.0 % 09/29/20 09:40 Neut % (Auto) 65.6 % 09/29/20 09:40 Lymph % (Auto) 21.4 % 09/29/20 09:40 [place] % (Auto) 11.7 % 09/29/20 09:40 Eos % (Auto) 0.8 % 09/29/20 09:40 Baso % (Auto) 0.5 % 09/29/20 09:40 Neut # (Auto) 2.58 K/uL (1.4-6.5) 09/29/20 09:40 Lymph # (Auto) 0.84 K/uL (1.2-3.4) L 09/29/20 09:40 [place] # (Auto) 0.46 K/uL (0.11-0.59) 09/29/20 09:40 Eos # (Auto) 0.03 K/uL (0-0.5) 09/29/20 09:40 Baso # (Auto) 0.02 K/uL (0-0.2) 09/29/20 09:40 Immature Gran # (Auto) 0.00 K/uL (0.00-0.02) 09/29/20 09:40 Sodium 136 mmol/L (136-145) 09/29/20 09:40 Potassium 4.1 mmol/L (3.5-5.1) 09/29/20 09:40 Chloride 105 mmol/L (98-107) 09/29/20 09:40 Carbon Dioxide 28 mmol/L (21-32) 09/29/20 09:40 Anion Gap 3.0 (3-11) 09/29/20 09:40 BUN 9 mg/dl (7-18) 09/29/20 09:40 Creatinine 0.77 mg/dl (0.6-1.2) 09/29/20 09:40 Est Cr Clr Drug Dosing 45.0 ml/min 09/29/20 09:40 Est GFR ( Amer) 95.9 ml/min 09/29/20 09:40 Est GFR (Non-Af Amer) 82.8 ml/min 09/29/20 09:40 BUN/Creatinine Ratio 11.4 (10-20) 09/29/20 09:40 Glucose 94 mg/dl (70-99) 09/29/20 09:40 Calcium 8.7 mg/dl (8.5-10.1) 09/29/20 09:40 Magnesium 2.1 mg/dl (1.8-2.4) 09/29/20 09:40 Total Bilirubin 0.3 mg/dl (0.2-1) 09/29/20 09:40 AST 19 U/L (15-37) 09/29/20 09:40 ALT 20 U/L (12-78) 09/29/20 09:40 Alkaline Phosphatase 60 U/L (45-117) 09/29/20 09:40 Total Protein 6.6 gm/dl (6.4-8.2) 09/29/20 09:40 Albumin 3.6 gm/dl (3.4-5.0) 09/29/20 09:40 Globulin 3.0 gm/dl (2.5-4.0) 09/29/20 09:40 Albumin/Globulin Ratio 1.2 (0.9-2) 09/29/20 09:40 COVID-19 Eval Order Covid19 at [facility] 09/29/20 10:30 SARS-CoV-2 (PCR) NEGATIVE (Negative) 09/29/20 10:30 Impressions Chest X-Ray 09/29/20 10:04 XR chest 1V portable CLINICAL HISTORY: Dizzy, cough, lung ca COMPARISON STUDY: PET/CT April 02, 2020. FINDINGS: Right internal jugular [id number] is in place. There is no pneumothorax or pleural effusion. There is no consolidation or evidence for pulmonary edema. Previously described right upper lobe lesion decrease in size since chest radiograph May 14, 2020. There may be adjacent pleural thickening. Cardiac size is normal. IMPRESSION: 1. No acute cardiopulmonary findings. 2. Decrease in size of the previously described right upper lobe lesion. ACT 112: Negative or not required by law. Electronically signed by: Clint Welch M.D. 09/29/2020 10:[address] 09/29/20 10:04 CT SCAN OF THE BRAIN WITHOUT IV CONTRAST CLINICAL HISTORY: Vertigo. Lung cancer. COMPARISON STUDY: MRI of the brain dated 05/21/2020. TECHNIQUE: Unenhanced axial CT scan of the brain is performed from the vertex to the skull base. A dose lowering technique was utilized adhering to the principles of ALARA. CT DOSE: 537.48 mGy.cm FINDINGS: Brain parenchyma: There are foci of edema within the high right frontal cortex, best seen on image #21 and in the left cerebellum seen on image #7. These are new from 05/21/2020 and highly suspicious for underlying metastatic disease. 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 There is no hemorrhage or midline shift. There is no evidence of acute territorial ischemia by CT criteria. No extra-axial fluid collection is seen. Ventricles, sulci, cisterns: Normal in configuration. Intracranial vasculature: There is atherosclerotic calcification of the cavernous carotid arteries. Calvarium: Unremarkable. 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 The visualized paranasal sinuses are otherwise clear. The mastoid air cells are well pneumatized. Orbits: The bony orbits are grossly intact. IMPRESSION: 1. There are foci of edema within the high right frontal lobe and the left cerebellar hemisphere. These are new from the 05/21/2020 MRI and highly suspicious for underlying metastatic disease. Correlation with a contrast- enhanced MRI of the brain is recommended for further assessment. 2. There is no hemorrhage, midline shift, or evidence of acute territorial ischemia by CT criteria. ACT 112: Negative or not required by law. Electronically signed by: Ion Goldsmith M.D. 09/29/2020 10:27 AM ECG Additional Comments: Sinus rhythm with short OH Otherwise normal ECG When compared with ECG of 09-APR-2020 17:58, No significant change was found Confirmed by Mynor Piedra ([id number]) on 09/29/2020 1:56:56 PM Code Status & VTE Plan Code Status DNR/DNI per discussion with patient VTE Prophylaxis Plan VTE Prophylaxis will be ordered: Yes PG Care Time/CCT Total # of Minutes Spent Total Time Spent with Patient: Total time spent is greater than 50% in coordination of care (as documented) at patient's floor/unit and/or counseling patient: Coding Level of Care Code 89509 Initial Inpt Care Lvl 2 Diagnoses COPD (chronic obstructive pulmonary disease) J44.9 COPD type: unspecified COPD Adenocarcinoma of lung C34.91 Laterality: right Dizziness R42 Brain lesion G93.9 (1) COPD (chronic obstructive pulmonary disease) COPD type: unspecified COPD Qualified Code(s): J44.9 - Chronic obstructive pulmonary disease, unspecified (2) Adenocarcinoma of lung Laterality: right Qualified Code(s): C34.91 - Malignant neoplasm of unspecified part of right bronchus or lung
[2020-09-29] MEDS ORDERED: GADOBUTROL 65ML VIAL IV ONE (15:48)
--- NOTE | 2020-09-29 15:55 | Radiation OncologyConsultation ---
Date of Consultation September 29, 2020 Assessment & Plan (1) Adenocarcinoma of lung: Laterality: right Qualified Code(s): C34.91 - Malignant neoplasm of unspecified part of right bronchus or lung Assessment: Ms. Evans is a 60-year-old female with locally advanced non-small cell lung carcinoma who now most likely presents with metastatic disease to the brain. The patient was receiving adjuvant chemotherapy in the outpatient setting underneath the supervision of [facility]. She presented to the emergency room due to dizziness. The patient is currently in the emergency room and will be admitted to the hospital for further work-up and evaluation. She was started on dexamethasone 8 mg and then will be placed on dexamethasone 4 mg twice daily. The patient just had MRI of Brain completed and final evaluation has not been dictated yet. I am now seeing her in consultation to discuss the role of radiation therapy. Treatment Options: 1. Stereotactic radiosurgery to brain. 2. Hippocampal sparing whole brain radiation therapy. 3. Whole brain radiation therapy. Plan: 1. Review MRI Brain and final report and then make final recommendations. Most likely patient's treatment simulation and planning can be done in outpatient setting if patient is stable. 2. Continue patient on Dexamethasone as per primary medical oncology team. 3. Call us with any further questions or concerns. History of Present Illness History of Present Illness 01/2020. Patient presents with cough and minor weight loss. Denies hemoptysis. 02/11/2020. Chest x-ray. IMPRESSION: 1. 2.5 cm masslike opacity of the lateral subpleural right upper lung. Primary bronchogenic neoplasm is the diagnosis of exclusion. Nonemergent follow-up chest CT recommended. 2. Emphysema with likely chronic interstitial coarsening. 03/03/2020. CT of chest. IMPRESSION: 1. Irregularly marginated 27 x 22 x 18 mm right upper lobe pulmonary mass, highly suspicious for a primary bronchogenic carcinoma. 2. Mildly enlarged mediastinal lymph nodes. 3. Emphysema. 04/02/2020. PET/CT. IMPRESSION: 1. A 2.5 cm spiculated right upper lobe pulmonary nodule is FDG avid. This should be considered lung cancer until per otherwise. 2. Enlarged and FDG avid right hilar and mediastinal lymph nodes are consistent with brooks metastatic disease. 3. There is no evidence of distant metastatic disease in the abdomen or pelvis. 4. There is asymmetric soft tissue thickening with associated FDG activity identified involving the left pharyngeal tissues at the base of the tongue. No clear mass lesion is seen on the low-dose CT images. Correlation with direct visualization is recommended. 5. Emphysema. 6. Additional findings as above. 04/10/2020. Bronchoscopy with EBUS by Dr. Sierra. Station 4L, 4R, 7, 11R are all positive for metastatic adenocarcinoma. 04/29/2019. Medical oncology consultation. Recommendation is consideration of chemotherapy and radiation therapy with potential surgical opinion. MRI brain ordered. 05/09/2020. Pulmonary function testing. Impression: Severe airflow obstruction. 05/21/2020. MRI brain. IMPRESSION: 1. No acute intracranial abnormality. 2. No evidence for intracranial metastatic disease. 3. Dysgenesis of the corpus callosum. 06/02/2020 to 07/14/2020. External beam radiation therapy to chest. 6000 cGy. 30 fractions. 200 cGy per fraction. Concurrent chemotherapy. 09/29/2020. Patient presents to emergency room due to dizziness. 09/29/2020. Chest x-ray. IMPRESSION: 1. No acute cardiopulmonary findings. 2. Decrease in size of the previously described right upper lobe lesion. 09/29/2020. CT of head without contrast. IMPRESSION: 1. There are foci of edema within the high right frontal lobe and the left cerebellar hemisphere. These are new from the 05/21/2020 MRI and highly suspicious for underlying metastatic disease. Correlation with a contrast-enhanced MRI of the brain is recommended for further assessment. 2. There is no hemorrhage, midline shift, or evidence of acute territorial ischemia by CT criteria. Allergies Allergy/AdvReac Type Severity Reaction Status Date / Time No Known Allergies Allergy Verified 09/29/20 15:00 Home Medications Medication Instructions Recorded Confirmed Type albuterol sulfate 90 mcg/actuation 2 puff INHALATION QID 09/29/20 09/29/20 History aerosol inhaler fluticasone fur. 100 mcg-umeclid 1 inh INHALATION DAILY 09/29/20 09/29/20 History 62.5 mcg-vilant 25 mcg inhalat.powder (Trelegy Ellipta) Patient History Medical History COPD (chronic obstructive pulmonary disease) Last exacerbation approx one month ago Encounter for pre-operative examination History of ovarian cancer SURGERY FOR - AGE 16 Lab test positive for detection of COVID-19 virus Lung cancer Tobacco use Wrist pain, left Surgical History History of anesthesia reaction AFTER BRONCHOSCOPY, HAD TO STAY OVERNIGHT D/T LOW OXYGEN LEVELS - APR 092020 History of bronchoscopy (04/09/20) History of surgery (~1976) RIGHT OVARY REMOVED, AND APPENDECTOMY (SAME SURGERY) S/P appendectomy S/P removal of right ovary (~1976) S/P tooth extraction (~10/2019) all of them Family History Sister Age: 64 Diabetes Lung cancer Endometrial ca Mother Diabetes Uncle , 3 paternal uncles and a first cousin Colorectal cancer Other Breast cancer Myocardial infarction Ovarian cancer Prostate cancer Social History Smoking Status: Current every day smoker Age Started Using Tobacco: 16; packs per day: 2; Years Smoked: 44; Cigarettes Per Day: 40; Second Hand Exposure: Yes; Hx Alcohol Use: No Hx Substance Use: No Preferred Language: Sudanese Communication Ability: Effective Visual Impairment: No Limitations Hearing Ability: Normal Snipper Required: No Beliefs That Will Affect Care: None marital status: Single Current Living Situation: Family Current Living Situation Comment: DANIEL QUIÑONES 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 Physical Exam Physical Exam: Limited exam. Patient did not want full examination.
--- NOTE | 2020-09-29 16:05 | Emergency Department Note ---
History of Present Illness General Chief complaint: Dizziness Stated complaint: DIZZINESS, NAUSEA Source: patient and RN notes reviewed Mode of arrival: EMS Limitations: no limitations History of Present Illness Provider complaint: Vertigo, nausea This patient is a 60-year-old female who presents to the emergency department today stating she woke up this morning with a severe and sudden onset of vertigo. She states that she completed a course of chemotherapy for lung cancer last month (August) and would not follow-up with the oncologist until February of this year. She feels she has been doing relatively well, particularly with eating and drinking. She states she lives alone. She denies any fevers, falls, head injuries, visual changes. She was able to drive herself to the convenience store where they gave her some water which did make her feel somewhat better. The ambulance was called. The patient denies any vomiting but does admit to some severe nausea. She denies ever having an attack quite like this before. Home Medications Medication Instructions Recorded Confirmed Type albuterol sulfate 90 mcg/actuation 2 puff INHALATION QID 09/29/20 09/29/20 History aerosol inhaler fluticasone fur. 100 mcg-umeclid 1 inh INHALATION DAILY 09/29/20 09/29/20 History 62.5 mcg-vilant 25 mcg inhalat.powder (Trelegy Ellipta) Allergies Allergy/AdvReac Type Severity Reaction Status Date / Time No Known Allergies Allergy Verified 09/29/20 15:00 Past Med/Surg History Medical History COPD (chronic obstructive pulmonary disease) Last exacerbation approx one month ago Encounter for pre-operative examination History of ovarian cancer SURGERY FOR - AGE 16 Lab test positive for detection of COVID-19 virus Lung cancer Tobacco use Wrist pain, left Surgical History History of anesthesia reaction AFTER BRONCHOSCOPY, HAD TO STAY OVERNIGHT D/T LOW OXYGEN LEVELS - APR 09-2020 History of bronchoscopy (04/09/20) History of surgery (~1976) RIGHT OVARY REMOVED, AND APPENDECTOMY (SAME SURGERY) S/P appendectomy S/P removal of right ovary (~1976) S/P tooth extraction (~10/2019) all of them Family History Sister Age: 64 Diabetes Lung cancer Endometrial ca Mother Diabetes Uncle , 3 paternal uncles and a first cousin Colorectal cancer Other Breast cancer Myocardial infarction Ovarian cancer Prostate cancer Social History Smoking Status: Current every day smoker Age Started Using Tobacco: 16; packs per day: 2; Years Smoked: 44; Cigarettes Per Day: 40; Second Hand Exposure: Yes; Hx Alcohol Use: No Hx Substance Use: No Preferred Language: Swedish Communication Ability: Effective Visual Impairment: No Limitations Hearing Ability: Normal Body And Frame Man Required: No Beliefs That Will Affect Care: None marital status: Single Current Living Situation: Family Current Living Situation Comment: [facility] 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 and A total of 10 systems reviewed and were otherwise negative Physical Exam Vital Signs Vital Signs - 24 hr 09/29/20 09:20 09/29/20 09:29 09/29/20 09:30 Temperature 36.5 C Temperature Source Oral Pulse Rate - Lying Pulse Rate - Sitting Pulse Rate 70 56 L 67 Pulse Rate from SpO2 Sensor 67 68 Respiratory Rate 16 20 19 Respiratory Effort / Characteristics Non-Labored Respiratory Depth Normal Respiratory Pattern Regular Blood Pressure - Lying Blood Pressure - Sitting Blood Pressure 123/67 123/54 L 123/67 Blood Pressure Mean 85 77 85 Blood Pressure Position Sitting Pulse Oximetry 97 98 98 Oxygen Delivery Method Room Air Sepsis Recent Fever Within 48 Hours No Sepsis New/Unexplained Change in Mental Status No Sepsis Action Taken by Nursing No Action Required 09/29/20 10:00 09/29/20 10:30 09/29/20 10:34 Temperature Temperature Source Pulse Rate - Lying 66 Pulse Rate - Sitting 65 Pulse Rate 66 65 Pulse Rate from SpO2 Sensor 67 Respiratory Rate 19 18 Respiratory Effort / Characteristics Respiratory Depth Respiratory Pattern Blood Pressure - Lying 123/70 Blood Pressure - Sitting 121/73 Blood Pressure 130/76 123/70 Blood Pressure Mean 94 87 Blood Pressure Position Pulse Oximetry 93 Oxygen Delivery Method Room Air Sepsis Recent Fever Within 48 Hours Sepsis New/Unexplained Change in Mental Status Sepsis Action Taken by Nursing 09/29/20 11:00 09/29/20 11:30 09/29/20 12:00 Temperature Temperature Source Pulse Rate - Lying Pulse Rate - Sitting Pulse Rate 70 80 65 Pulse Rate from SpO2 Sensor Respiratory Rate 22 24 23 Respiratory Effort / Characteristics Respiratory Depth Respiratory Pattern Blood Pressure - Lying Blood Pressure - Sitting Blood Pressure 118/68 115/64 103/63 Blood Pressure Mean 84 81 76 Blood Pressure Position Pulse Oximetry Oxygen Delivery Method Sepsis Recent Fever Within 48 Hours Sepsis New/Unexplained Change in Mental Status Sepsis Action Taken by Nursing 09/29/20 12:30 09/29/20 13:00 09/29/20 13:30 Temperature Temperature Source Pulse Rate - Lying Pulse Rate - Sitting Pulse Rate 74 90 80 Pulse Rate from SpO2 Sensor 76 87 79 Respiratory Rate 16 19 25 H Respiratory Effort / Characteristics Respiratory Depth Respiratory Pattern Blood Pressure - Lying Blood Pressure - Sitting Blood Pressure 111/70 109/76 127/83 Blood Pressure Mean 83 87 97 Blood Pressure Position Pulse Oximetry 93 92 94 Oxygen Delivery Method Sepsis Recent Fever Within 48 Hours Sepsis New/Unexplained Change in Mental Status Sepsis Action Taken by Nursing 09/29/20 14:00 09/29/20 14:30 Temperature Temperature Source Pulse Rate - Lying Pulse Rate - Sitting Pulse Rate 83 78 Pulse Rate from SpO2 Sensor 82 79 Respiratory Rate 20 16 Respiratory Effort / Characteristics Respiratory Depth Respiratory Pattern Blood Pressure - Lying Blood Pressure - Sitting Blood Pressure 116/76 119/73 Blood Pressure Mean 89 88 Blood Pressure Position Pulse Oximetry 91 91 Oxygen Delivery Method Sepsis Recent Fever Within 48 Hours Sepsis New/Unexplained Change in Mental Status Sepsis Action Taken by Nursing Vital signs reviewed. General: Chronically ill-appearing 60-year-old female, in no significant distress. HEENT: No scleral icterus, PERRLA, neck supple. Dry MM, + horizontal nystagmus Cardiovascular: Regular rate and rhythm, no extra sounds. Pulmonary: Coarse breath sounds to auscultation bilaterally, slightly increased work of breathing, on room air. Abdomen: Soft, nontender, nondistended, positive bowel sounds. Musculoskeletal: Atraumatic, no peripheral edema. Neurologic: Patient awake alert and oriented x 3 Skin: Warm, dry, no rash Course Administered Medications Discontinued Medications Gadobutrol (Gadobutrol 65ml Vial) 3.5 ml IV ONCE ONE Stop: 09/29/20 15:49 Last Admin: 09/29/20 15:49 Dose: 3.5 ml Documented by: [id number] Sodium Chloride (Nss) 500 mls @ 999 mls/hr IV .Q31M NATTY Stop: 09/29/20 10:45 Last Infusion: 09/29/20 11:44 Dose: 0 mls/hr Documented by: [id number] Admin: 09/29/20 10:43 Dose: 999 mls/hr Documented by: [id number] Lorazepam (Ativan) 1 mg in 2 mls @ 2 mls/min IV NOW STA Stop: 09/29/20 10:05 Last Admin: 09/29/20 10:43 Dose: 2 mls/min Documented by: [id number] Medical Decision Making Differential Diagnosis Benign positional vertigo, dehydration, hypovolemia, anemia, tumor, infection, hypoglycemia, electrolyte abnormalities, cardiac sources, intracerebral event, toxicologic, neurologic, as well as other pathologies. Medical Records Attestation: I reviewed the patient's medical records. Home Medications Current Medication List: was personally reviewed by me Laboratory Data Result diagrams: 09/29/20 09:40 09/29/20 09:40 Lab Results 09/29/20 09/29/20 09/29/20 Range/Units 09:40 09:40 10:30 WBC 3.93 L (4.8-10.8) K/uL RBC 3.08 L (4.2-5.4) M/uL Hgb 11.1 L (12.0-16.0) g/dL Hct 32.9 L (37-47) % MCV 106.8 H (80-100) fL MCH 36.0 H (25-34) pg MCHC 33.7 (32-36) g/dL RDW Std Deviation 60.9 H (36.4-46.3) fL RDW Coeff of Jesús 15.5 H (11.5-14.5) % Plt Count 396 (130-400) K/uL MPV 9.2 (7.4-10.4) fL Immature Gran % (Auto) 0.0 % Neut % (Auto) 65.6 % Lymph % (Auto) 21.4 % [place] % (Auto) 11.7 % Eos % (Auto) 0.8 % Baso % (Auto) 0.5 % Neut # (Auto) 2.58 (1.4-6.5) K/uL Lymph # (Auto) 0.84 L (1.2-3.4) K/uL [place] # (Auto) 0.46 (0.11-0.59) K/uL Eos # (Auto) 0.03 (0-0.5) K/uL Baso # (Auto) 0.02 (0-0.2) K/uL Immature Gran # (Auto) 0.00 (0.00-0.02) K/uL Sodium 136 (136-145) mmol/L Potassium 4.1 (3.5-5.1) mmol/L Chloride 105 (98-107) mmol/L Carbon Dioxide 28 (21-32) mmol/L Anion Gap 3.0 (3-11) BUN 9 (7-18) mg/dl Creatinine 0.77 (0.6-1.2) mg/dl Est Cr Clr Drug Dosing 45.0 ml/min Est GFR ( Amer) 95.9 ml/min Est GFR (Non-Af Amer) 82.8 ml/min BUN/Creatinine Ratio 11.4 (10-20) Glucose 94 (70-99) mg/dl Calcium 8.7 (8.5-10.1) mg/dl Magnesium 2.1 (1.8-2.4) mg/dl Total Bilirubin 0.3 (0.2-1) mg/dl AST 19 (15-37) U/L ALT 20 (12-78) U/L Alkaline Phosphatase 60 (45-117) U/L Total Protein 6.6 (6.4-8.2) gm/dl Albumin 3.6 (3.4-5.0) gm/dl Globulin 3.0 (2.5-4.0) gm/dl Albumin/Globulin Ratio 1.2 (0.9-2) COVID-19 Eval Order Covid19 at [facility] SARS-CoV-2 (PCR) (Negative) 09/29/20 Range/Units 10:30 WBC (4.8-10.8) K/uL RBC (4.2-5.4) M/uL Hgb (12.0-16.0) g/dL Hct (37-47) % MCV (80-100) fL MCH (25-34) pg MCHC (32-36) g/dL RDW Std Deviation (36.4-46.3) fL RDW Coeff of Jesús (11.5-14.5) % Plt Count (130-400) K/uL MPV (7.4-10.4) fL Immature Gran % (Auto) % Neut % (Auto) % Lymph % (Auto) % [place] % (Auto) % Eos % (Auto) % Baso % (Auto) % Neut # (Auto) (1.4-6.5) K/uL Lymph # (Auto) (1.2-3.4) K/uL [place] # (Auto) (0.11-0.59) K/uL Eos # (Auto) (0-0.5) K/uL Baso # (Auto) (0-0.2) K/uL Immature Gran # (Auto) (0.00-0.02) K/uL Sodium (136-145) mmol/L Potassium (3.5-5.1) mmol/L Chloride (98-107) mmol/L Carbon Dioxide (21-32) mmol/L Anion Gap (3-11) BUN (7-18) mg/dl Creatinine (0.6-1.2) mg/dl Est Cr Clr Drug Dosing ml/min Est GFR ( Amer) ml/min Est GFR (Non-Af Amer) ml/min BUN/Creatinine Ratio (10-20) Glucose (70-99) mg/dl Calcium (8.5-10.1) mg/dl Magnesium (1.8-2.4) mg/dl Total Bilirubin (0.2-1) mg/dl AST (15-37) U/L ALT (12-78) U/L Alkaline Phosphatase (45-117) U/L Total Protein (6.4-8.2) gm/dl Albumin (3.4-5.0) gm/dl Globulin (2.5-4.0) gm/dl Albumin/Globulin Ratio (0.9-2) COVID-19 Eval Order SARS-CoV-2 (PCR) NEGATIVE (Negative) Imaging Data Radiologist's Impression: Chest X-Ray 09/29/20 10:04 XR chest 1V portable CLINICAL HISTORY: Dizzy, cough, lung ca COMPARISON STUDY: PET/CT April 02, 2020. FINDINGS: Right internal jugular [id number] is in place. There is no pneumothorax or pleural effusion. There is no consolidation or evidence for pulmonary edema. Previously described right upper lobe lesion decrease in size since chest radiograph May 14, 2020. There may be adjacent pleural thickening. Cardiac size is normal. IMPRESSION: 1. No acute cardiopulmonary findings. 2. Decrease in size of the previously described right upper lobe lesion. ACT 112: Negative or not required by law. Electronically signed by: Clint Welch M.D. 09/29/2020 10:[address] 09/29/20 10:04 CT SCAN OF THE BRAIN WITHOUT IV CONTRAST CLINICAL HISTORY: Vertigo. Lung cancer. COMPARISON STUDY: MRI of the brain dated 05/21/2020. TECHNIQUE: Unenhanced axial CT scan of the brain is performed from the vertex to the skull base. A dose lowering technique was utilized adhering to the principles of ALARA. CT DOSE: 537.48 mGy.cm FINDINGS: Brain parenchyma: There are foci of edema within the high right frontal cortex, best seen on image #21 and in the left cerebellum seen on image #7. These are new from 05/21/2020 and highly suspicious for underlying metastatic disease. 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 There is no hemorrhage or midline shift. There is no evidence of acute territorial ischemia by CT criteria. No extra-axial fluid collection is seen. Ventricles, sulci, cisterns: Normal in configuration. Intracranial vasculature: There is atherosclerotic calcification of the cavernous carotid arteries. Calvarium: Unremarkable. 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 The visualized paranasal sinuses are otherwise clear. The mastoid air cells are well pneumatized. Orbits: The bony orbits are grossly intact. IMPRESSION: 1. There are foci of edema within the high right frontal lobe and the left cerebellar hemisphere. These are new from the 05/21/2020 MRI and highly suspicious for underlying metastatic disease. Correlation with a contrast- enhanced MRI of the brain is recommended for further assessment. 2. There is no hemorrhage, midline shift, or evidence of acute territorial ischemia by CT criteria. ACT 112: Negative or not required by law. Electronically signed by: Ion Goldsmith M.D. 09/29/2020 10:27 AM ECG Data Attestation: I personally reviewed and interpreted this ECG as follows: Indication: + other (dizzy) Rhythm: + normal sinus ECG Intervals/blocks: + Short NM ECG [place]: + Normal ECG ST segments: + Normal ST segments ECG Findings: + Other (No PVC, no PAC) Blood Pressure Blood Pressure Findings: Normal blood pressure Blood Pressure Disposition: did not require urgent referral MDM Narrative This patient was evaluated and appeared to be in some discomfort. IV access was obtained and laboratory work was drawn. An order for cardiac monitoring was placed and the patient was noted to be in a normal sinus rhythm at 65 bpm. Patient was hydrated with normal saline solution and given 1 mg of IV Ativan. Patient had significant resolution of her vertigo. Head CT was performed and reveals new metastatic lesions in the brain. This is compared to previous MR in 05/2020. Patient was reevaluated and sleeping. She was informed of the findings. The patient has very little social support and will require further imaging, evaluation by oncology and radiation oncology. With her vertigo discharge home is not a safe plan. Patient was agreeable and the hospitalist was consulted. Impression & Plan Metastatic adenocarcinoma to brain, Adenocarcinoma of lung, Vertigo Discharge Plan Visit Data Chief Complaint: Dizziness Stated Complaint: DIZZINESS, NAUSEA ED Provider: Jayda Pillai Discharge Problem: Metastatic adenocarcinoma to brain, Adenocarcinoma of lung, Vertigo Forms Stand Alone Forms: My [facility] Prescriptions Prescriptions: No Action albuterol sulfate 90 mcg/actuation HFA aerosol inhaler 2 puff INHALATION QID RF: 0 Trelegy Ellipta 100-62.5-25 mcg Blister With Device 1 inh INHALATION DAILY RF: 0 Referrals Referrals: Felisa Grimes MD [Primary Care Provider] -
[2020-09-29] MEDS ORDERED: DEXAMETHASONE SOD INJ 4 MG/ML VIAL ONE (16:24)
--- NOTE | 2020-09-29 16:28 | Magnetic Resonance Report ---
MRI OF THE BRAIN WITHOUT AND WITH IV CONTRAST CLINICAL HISTORY: ? Brain metastases COMPARISON STUDY: May 21, 2020 TECHNIQUE: MRI of the brain was performed from the vertex to the skull base utilizing various T1 and T2 weighted sequences. Following the IV administration of 3.5 mL of Gadavist contrast, additional enh anced images were obtained. FINDINGS: Sagittal T1, axial diffusion, proton density and T2 weighted axial, coronal FLAIR, and pre and post a xial T1-weighted images were acquired. These were supplemented with post gadolinium coronal T1 weight ed images. Interval development of few focal areas of restricted diffusion within left cerebellar lobe and subco rtical white matter of the right parietal lobe with prominent surrounding vasogenic edema and concent uriel peripheral enhancement since recent prior study performed in May 21, 2020. No other areas of restricted diffusion is seen to suggest vascular territory infarct. No acute intracranial hemorrhage or midline shift is seen. 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 Proton density T2-weighted and FLAIR images reveal scattered foci of increased T2 signal within the w rajiv matter, likely on a small vessel basis. There are no abnormal flow voids. IMPRESSION: 1. Interval development of peripherally enhancing foci of restricted diffusion within left cerebella r lobe and right parietal lobe which also shows restricted diffusion and prominent surrounding vasoge sienna edema highly concerning for metastatic disease. Findings will be sent to the ordering physician francine schmidt. 2. No acute intracranial hemorrhage or midline shift is seen. 3. Redemonstration of dysgeneses of the corpus callosum. 4. Mild chronic small vessel ischemia. ACT 112: Positive. There are findings on this exam that require communication between the performing entity and the patient following Patient Test Result Information Act ([place] Act 112) guidelines. The above report was generated using voice recognition software. It may contain grammatical, syntax o r spelling errors. Electronically signed by: Khadra Leach DO 09/29/2020 4:26 PM
[2020-09-29] MEDS ORDERED: ALBUTEROL 0.5% NEB SOLN 2.5 MG/0.5 ML VIAL NEB PRN (19:10)
[2020-09-29] MEDS ORDERED: MECLIZINE HCL 25 MG TAB PO PRN (19:10)
[2020-09-29] MEDS ORDERED: ONDANSETRON INJ 2 MG/ML 2 ML VIAL IV PRN (19:10)
[2020-09-29] MEDS ORDERED: ACETAMINOPHEN 325 MG TAB PO PRN (19:10)
[2020-09-29] MEDS: NICOTINE 7 MG/24 HR TDSY TD SCH (22:07)
[2020-09-30 06:01] LABS: Hematocrit (blood only) 33.7 % (37-47); Hemoglobin 11.6 g/dL (12.0-16.0); Lymphocytes # (auto) 0.56 K/uL (1.2-3.4); Mean Corpuscular Hemoglobin 36.8 pg (25-34); Mean Corpuscular Hgb Conc 34.4 g/dL (32-36); Mean Platelet Volume 9.1 fL (7.4-10.4); Monocytes # (auto) 0.38 K/uL (0.11-0.59); Monocytes % (auto) 12.9 %; Neutrophils % (auto) 68.1 %; Platelet Count 408 K/uL (130-400); RDW Standard Deviation 58.8 fL (36.4-46.3); Red Blood Count 3.15 M/uL (4.2-5.4); White Blood Count 2.94 K/uL (4.8-10.8)
[2020-09-30 06:30] LABS: BUN Creatinine Ratio 22.7 (10-20); Calcium 9.2 mg/dl (8.5-10.1); Creatinine Clr Calc Pharmacy 46.9 ml/min; Est GFR (African American) 100.6 ml/min; Est GFR (Non-African American) 86.8 ml/min; Potassium 4.1 mmol/L (3.5-5.1)
[2020-09-30] MEDS ORDERED: NON-FORMULARY MEDICATION (Fluticasone-Umeclidin-Vilanter [Trelegy Ellipta] 100-62.5-25 mcg INH SCH (09:00)
[2020-09-30] MEDS ORDERED: dexAMETHasone 4 MG in SYRINGE 0 ML IV SCH (09:00)
[2020-09-30] MEDS: NICOTINE 7 MG/24 HR TDSY TD SCH (09:58)
[2020-09-30] MEDS: FLUTICASONE FUROATE 100MCG 14 PUFFS/INHALER INH SCH (10:00)
[2020-09-30] MEDS: UMECLIDINIUM/VILANTEROL 62.5/25MCG 7 PUFFS/INHALER INH SCH (10:00)
[2020-09-30] MEDS: HEPARIN 100 UNIT/ML 5ML FLUSH FLUSH PRN ×2 (10:02→15:48)
--- NOTE | 2020-09-30 13:06 | Radiation Oncology Progress Nt ---
Date of Service September 30, 2020 Assessment & Plan (1) Adenocarcinoma of lung: Plan: Assessment: Ms. Evans is a 60-year-old female with locally advanced non-small cell lung carcinoma who now most likely presents with metastatic disease to the brain. The patient was receiving adjuvant chemotherapy in the outpatient setting underneath the supervision of Cancer [facility]. She presented to the emergency room due to dizziness and has been admitted to the hospital and was admitted for further work-up and evaluation. Patient did have an MRI of the brain which did reveal 2 areas of metastatic disease. We have been consulted to address the role for radiation therapy. I have recommended stereotactic radiosurgery to be completed in the outpatient setting. 5 fractions. Plan: 1. I communicated with primary medical team to increase Dexamethasone to 4 mg PO TID to help with dizziness. 2. Continue to follow patient and document as needed. Patient should be scheduled for outpatient CT simulation for treatment planning for radiation therapy. If she is here longer, than planning may need to happen during this admission. No need for radiation therapy during this admission. 3. Call us with any further questions or concerns. Explanation of Treatment: In general, we did discuss treatment recommendations for the management of metastatic disease to the brain. I did explain to the patient that most often biopsies are not performed given the patient's previous history of cancer unless the patient plans to undergo surgical resection. I discussed treatment options including surgical resection and radiation therapy. The patient defer surgical intervention and would prefer to undergo radiation therapy. I then discussed the advantages and disadvantages of both whole brain radiation therapy and stereotactic radiosurgery. I did discuss the benefits of whole brain radiation therapy with respect to overall intracranial control and the most significant disadvantages including long-term neurocognitive side effects; we then focused or conversation and stereotactic radiosurgery and explained the benefits which included minimizing radiation therapy to the normal brain and potentially reducing long-term side effects from radiation therapy as well as the disadvantages including the inability to potentially prevent further lesions from developing in the brain. I did explain that after the completion of stereotactic radiosurgery we would follow the patient with an MRI of the brain every 2-3 months which would enable us to potentially diagnose new lesions early while they are still asymptomatic and potentially treatable with stereotactic radiosurgery. The patient would like to undergo stereotactic radiosurgery. The patient will be brought back for CT simulation for treatment planning. I explained the indications, alternatives, benefits, risks and side effects of external beam radiation therapy to the brain. I explain the most common side effects including but not limited to skin erythema, skin break down, hair loss, radiation necrosis, fatigue, short-term memory loss, decreased neurocognitive performance, cerebral edema, hearing loss, damage to cochlea structures, seizures, loss of sensory and or motor function. I explained the treatment planning process and what to expect before during and after treatment. The patient understands and would be willing to consent to treatment. Admission and Anticipated Discharge Date Admission Date: September 29, 2020 Results & Data ([facility]) Diagnostic Findings MRI OF THE BRAIN WITHOUT AND WITH IV CONTRAST CLINICAL HISTORY: ? Brain metastases COMPARISON STUDY: May 21, 2020 TECHNIQUE: MRI of the brain was performed from the vertex to the skull base utilizing various T1 and T2 weighted sequences. Following the IV administration of 3.5 mL of Gadavist contrast, additional enhanced images were obtained. FINDINGS: Sagittal T1, axial diffusion, proton density and T2 weighted axial, coronal FLAIR, and pre and post axial T1-weighted images were acquired. These were supplemented with post gadolinium coronal T1 weighted images. Interval development of few focal areas of restricted diffusion within left cerebellar lobe and subcortical white matter of the right parietal lobe with prominent surrounding vasogenic edema and concentric peripheral enhancement since recent prior study performed in May 21, 2020. No other areas of restricted diffusion is seen to suggest vascular territory infarct. No acute intracranial hemorrhage or midline shift is seen. 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 Proton density T2-weighted and FLAIR images reveal scattered foci of increased T2 signal within the white matter, likely on a small vessel basis. There are no abnormal flow voids. IMPRESSION: 1. Interval development of peripherally enhancing foci of restricted diffusion within left cerebellar lobe and right parietal lobe which also shows restricted diffusion and prominent surrounding vasogenic edema highly concerning for metastatic disease. Findings will be sent to the ordering physician office. 2. No acute intracranial hemorrhage or midline shift is seen. 3. Redemonstration of dysgeneses of the corpus callosum. 4. Mild chronic small vessel ischemia. (1) Adenocarcinoma of lung Laterality: unspecified laterality Qualified Code(s): C34.90 - Malignant neoplasm of unspecified part of unspecified bronchus or lung
[2020-09-30] MEDS: dexAMETHasone 4 MG in SYRINGE 0 ML IV SCH ×2 (15:48→19:57)
--- NOTE | 2020-09-30 17:35 | Hospitalist Progress Note ---
Date of Service September 30, 2020 Assessment & Plan (1) Dizziness: Plan: Etiology most likely secondary to metastatic lung cancer to the brain Meclizine seems to be helping Ambulating in the hallways with assistance with no difficulty No nausea and vomiting Patient will require stereotactic radiation Appreciate Dr. Bro's input from radiation oncology (2) Metastatic adenocarcinoma to brain: Plan: Diagnosis of primary lung cancer in February 2020 Previously underwent chemoradiation MRI this admission shows brain lesion Radiation oncology consulted. Appreciate Dr. Bro's input Increase dexamethasone from 4 mg twice daily to 4 mg 3 times daily. If this helps with dizziness, discharge home for outpatient radiation oncology management Patient aware of lesion and treatment plan Limited support system at home Continue work with case management on placement (3) Adenocarcinoma of lung: Plan: Discussed case with [facility] Outpatient management of chemotherapy Metastatic brain lesion as listed above (4) COPD (chronic obstructive pulmonary disease): Plan: Home medications include Trelegy Ellipta (fluticasone Umeclidinium) Continue Umeclidinium/Vilanterol while inpatient and discharged home on Trelegy Ellipta No bronchospasms on examination Oxygenating well on room air Ambulating well without difficulty Patient continues to smoke Encouraged tobacco cessation (5) DVT prophylaxis: Plan: No chemical prophylaxis at this time secondary to brain lesion Ambulate as tolerated No evidence of DVT on examination Admission and Anticipated Discharge Date Admission Date: September 29, 2020 Subjective Patient seen and examined at bedside. Emotionally labile. Limited support system. Never and has no children. Continues with some lightheadedness and dizziness but no syncope or near syncope and no falls or balance issues Ambulating well in the hallways Denies any acute visual changes No fever, chills, sweats, rigors No nausea or vomiting or diarrhea No chest pain or shortness of breath Review of Systems Review of Systems: All systems reviewed & are unremarkable except as noted in Subjective Physical Exam Physical Exam: GENERAL : Emotionally labile and tearful. Cachectic appearing EYES: No icterus, gaze conjugate. Pupils equal round and reactive to light NOSE: No evidence of epistaxis MOUTH: No lesions or candidiasis. Mucosa moist. Tongue is midline NECK: Supple LUNGS: CTA B/L, no wheezes, rales or rhonchi. Good inspiratory effort HEART: Regular, rate controlled ABDOMEN: Soft, NT, ND, BS Present EXTREMITIES: No LE edema, pedal pulses intact and equal bilaterally NEURO: A&OX3 Results & Data Results & Data ([facility]) Vital Signs (Past 12 Hours) Vital Signs Temp Pulse Resp BP Pulse Ox 09/30/20 16:14 36.7 C 88 18 96/60 L 93 09/30/20 07:46 36.3 C L 78 18 119/64 98 Laboratory Results 09/30/20 05:36 09/30/20 05:36 Diagnostic Findings MRI OF THE BRAIN WITHOUT AND WITH IV CONTRAST CLINICAL HISTORY: ? Brain metastases COMPARISON STUDY: May 21, 2020 TECHNIQUE: MRI of the brain was performed from the vertex to the skull base utilizing various T1 and T2 weighted sequences. Following the IV administration of 3.5 mL of Gadavist contrast, additional enhanced images were obtained. FINDINGS: Sagittal T1, axial diffusion, proton density and T2 weighted axial, coronal FLAIR, and pre and post axial T1-weighted images were acquired. These were supplemented with post gadolinium coronal T1 weighted images. Interval development of few focal areas of restricted diffusion within left cerebellar lobe and subcortical white matter of the right parietal lobe with prominent surrounding vasogenic edema and concentric peripheral enhancement sin ce recent prior study performed in May 21, 2020. No other areas of restricted diffusion is seen to suggest vascular territory infarct. No acute intracranial hemorrhage or midline shift is seen. 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 Proton density T2-weighted and FLAIR images reveal scattered foci of increased T2 signal within the white matter, likely on a small vessel basis. There are no abnormal flow voids. IMPRESSION: 1. Interval development of peripherally enhancing foci of restricted diffusion within left cerebellar lobe and right parietal lobe which also shows restricted diffusion and prominent surrounding vasogenic edema highly concerning for metastatic disease. Findings will be sent to the ordering physician office. 2. No acute intracranial hemorrhage or midline shift is seen. 3. Redemonstration of dysgeneses of the corpus callosum. 4. Mild chronic small vessel ischemia. ACT 112: Positive. There are findings on this exam that require communication between the performing entity and the patient following Patient Test Result Inf ormation Act ([place] Act 112) guidelines. The above report was generated using voice recognition software. It may contain grammatical, syntax or spelling errors. Electronically signed by: Khadra eLach DO 09/29/2020 4:26 PM PG Care Time/CCT Total # of Minutes Spent Total Time Spent with Patient: Total time spent is greater than 50% in coordination of care (as documented) at patient's floor/unit and/or counseling patient: 30 minutes including discussion with specialists Coding Level of Care Code 20431 Subseq Hosp Care Lvl 2 Diagnoses Dizziness R42 Metastatic adenocarcinoma to brain C79.31 Adenocarcinoma of lung C34.90 Laterality: unspecified laterality COPD (chronic obstructive pulmonary disease) J44.9 COPD type: unspecified COPD DVT prophylaxis Z29.9 Time Spent (min) 30 (1) Adenocarcinoma of lung Laterality: unspecified laterality Qualified Code(s): C34.90 - Malignant neoplasm of unspecified part of unspecified bronchus or lung (2) COPD (chronic obstructive pulmonary disease) COPD type: unspecified COPD Qualified Code(s): J44.9 - Chronic obstructive pulmonary disease, unspecified
[2020-10-01 07:43] VITALS: BP 120/57; TEMP 97.3
[2020-10-01] MEDS: dexAMETHasone 4 MG in SYRINGE 0 ML IV SCH (09:07)
[2020-10-01] MEDS: NICOTINE 7 MG/24 HR TDSY TD SCH (09:08)
[2020-10-01] MEDS: UMECLIDINIUM/VILANTEROL 62.5/25MCG 7 PUFFS/INHALER INH SCH (09:08)
[2020-10-01] MEDS: FLUTICASONE FUROATE 100MCG 14 PUFFS/INHALER INH SCH (09:08)
[2020-10-01] MEDS ORDERED: ALBUT/IPRATROP 3MG/0.5MG NEB 3 ML VIAL NEB STA (10:14)
[2020-10-01 10:25] VITALS: O2SAT 94
--- NOTE | 2020-10-01 11:40 | Discharge Summary ---
Date of Service October 01, 2020 Admission HPI Per Admitting Provider Mansi Evans is a 60yo female with history of adenocarcinoma of the lung diagnosed in March 2020 s/p completion of XRT and chemotherapy with Taxol and Carboplatin. Patient woke this AM with vertigo. She had a brief syncopal event at home lasting several seconds. No head trauma/chest pain/palpitations/incontinence/tongue biting. Additionally she feels numbness of her hands and feet which she gets occasionally and has been linked with her prior chemotherapy treatments. Patient presently with dizziness. No additional complaints. She specifically denies MARSHALL/fever/chills/cough/SOB/abdominal pain/nausea/vomiting/diarrhea or constipation. She states she is eating well at home. She lives with her sister. ER Course: Ativan 1mg Dexamethasone 8mg IV NSS x 500mL Admission Exam Per Admitting Provider General: thin female patient resting comfortably, NAD, non-toxic in appearance, AA&O x 4 Skin: warm, dry, intact, no rashes or lesions HEENT: NC/AT, PERRL, EOMI, anicteric sclera, conjunctiva without injection, external ear normal to inspection and nontender, nares patent, moist mucus membranes, dentition intact, no oropharyngeal lesions, neck supple, trachea midline, no LAD, no thyromegaly, no JVD Heart: +S1/S2, regular, no m/r/g, Mediport present right chest wall, no erythema, tenderness Lungs: equal air entry bilaterally, no rales/rhonchi/wheezes Abd: +BS, soft, NT/ND, no masses/organomegaly/ascites Ext: warm, 2+ pulses in UE/LE bilaterally, no clubbing/cyanosis or edema Neuro: nonfocal, patient AA&O x 4, speech intact, no facial droop, moving all extremities on command with equal strength 5/5 Principal Diagnosis Dizziness and weakness secondary to metastatic cancer to the brain Discharge Exam GENERAL : Less tearful today. Cachectic appearing. Excited about going home EYES: No icterus, gaze conjugate. Pupils equal round and reactive to light NOSE: No evidence of epistaxis MOUTH: No lesions or candidiasis. Mucosa moist. Tongue is midline NECK: Supple LUNGS: CTA B/L, no wheezes, rales or rhonchi. Good inspiratory effort HEART: Regular, rate controlled ABDOMEN: Soft, NT, ND, BS Present EXTREMITIES: No LE edema, pedal pulses intact and equal bilaterally NEURO: A&OX3 Discharge Data Allergies Allergy/AdvReac Type Severity Reaction Status Date / Time No Known Allergies Allergy Verified 10/07/20 11:15 Consultations 09/29/20 13:59 Consult Oncology Routine Consult Radiation Oncology Routine 09/29/20 14:47 ED Decision to Admit Stat Ordered Studies 09/29/20 10:04 CT head/brain wo con Stat 09/29/20 13:59 MR brain wo/w con Urgent Hospital Course (1) Dizziness: Etiology most likely secondary to metastatic lung cancer to the brain Meclizine seems to be helping. Discharged on same Ambulating in the hallways with no difficulty No nausea or vomiting today Patient will require stereotactic radiation as an outpatient Appreciate Dr. Bro's input from radiation oncology (2) Metastatic adenocarcinoma to brain: Diagnosis of primary lung cancer in February 2020 Previously underwent chemoradiation MRI this admission shows brain lesion Radiation oncology consulted. Appreciate Dr. Bro's input Increase dexamethasone from 4 mg twice daily to 4 mg 3 times daily. Discharge home for outpatient radiation oncology management Patient aware of lesion and treatment plan Limited support system at home Patient being discharged home. Sister is coming from [place] to help. Telephone discussion with sister to confirm (3) Adenocarcinoma of lung: Discussed case with Dr[facility] Outpatient management of chemotherapy Metastatic brain lesion as listed above (4) COPD (chronic obstructive pulmonary disease): Home medications include Trelegy Ellipta (fluticasone Umeclidinium) Discharge home on Trelegy Ellipta No bronchospasms on examination Oxygenating well on room air Ambulating well without difficulty Patient continues to smoke Encouraged tobacco cessation (5) Tobacco abuse: Patient states that she desires to quit smoking Discharged home with prescription for nicotine patches Patient advised against smoking with nicotine patch in place Educated on importance of removing nicotine patch daily after 12 hours Total Time Total Time Spent Total Time Spent (In Minutes): 35 minutes Discharge Plan Discharge Items Patient Disposition: Home - Self-Care Reason For Visit: VERTIGO, ?BRAIN METASTASES Discharge Diagnosis: Vertigo Metastatic lung cancer to the brain Activity: Resume your previous activity Lifting: Gradually increase as tolerated Bathing: No limitations Exercise/Sports: Gradually increase as tolerated Driving/Machine Use: Do not drive until cleared by radiation oncology Weightbearing: Full weightbearing Non-emergency contact: Primary Care Provider Call non-emergency contact if: you have any medication questions and your symptoms worsen Follow-up/Referrals: Felisa Grimes MD [Primary Care Provider] - 10/07/20 11:20 am (Appointment will be with ) Diet: Regular Addtl Attending Provider Instructions: You were admitted for dizziness and found to have metastasis (spread) of your lung cancer to your brain. You were started on a medication for vertigo called meclizine. We will continue with this on discharge. While taking this medication, you should not drive or operate any equipment. You should get rides and have someone accompany you to the appointments for your radiation for support. I am glad that you have decided to quit smoking cigarettes. Continue to use the nicotine patches that you have at home. Do not smoke while you have a patch in place. Continue your usual COPD medications including her nebulizer and inhalers. Pending Studies at Discharge: No Stand-Alone Forms: [email or web address], Smoking Cessation Medications and DC Order Prescriptions: New meclizine 25 mg Tablet 25 mg PO TID PRN (Reason: dizziness) Qty: 90 RF: 0 nicotine 7 mg/24 hr Patch 24 Hour 7 mg transdermal QAM Qty: 14 RF: 0 Continued albuterol sulfate 90 mcg/actuation HFA aerosol inhaler 2 puff INHALATION QID RF: 0 Trelegy Ellipta 100-62.5-25 mcg Blister With Device 1 inh INHALATION DAILY RF: 0 Discharge Orders: Discharge Order (Routine); Ordered 10/01/20 Ordered By: Ion Rai Admission Data Admit Date/Time: 09/29/20 13:59 Attending Provider: Guero Bernal Admit Provider: Cesilia Weber Primary Care Provider: Felisa Grimes Other Providers: Mendoza Lorenzana V. ; Beverly Bro ; Cesilia Weber Other Interventions: Discharge Summary Assessment (RN) Last Done: 10/01/20 11:56 Supervising Physician Co-Signing Physician Notes Patient seen and examined on the day of discharge. I agree with the discharge summary by Ion BEAUCHAMP. I have reviewed the chart including labs, imaging and plans for discharge. patient doing better, less dizziness with increase in Decadron and Meclizine PRN - Dizziness, lung cancer with mets to brain increase Decadron, follow up with radiation oncology for brain mets PRN Meclizine for dizziness Coding Level of Care Code D/C DAY MANAGEMENT >30 MINS Diagnoses Dizziness R42 Metastatic adenocarcinoma to brain C79.31 Adenocarcinoma of lung C34.90 Laterality: unspecified laterality COPD (chronic obstructive pulmonary disease) J44.9 COPD type: unspecified COPD Tobacco abuse Z72.0 Time Spent (min) 35
[2020-10-01 12:04] VITALS: PULSE 79
--- NOTE | 2020-10-01 12:15 | Consultation Report ---
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 HISTORY OF PRESENT ILLNESS: Mansi Evans is a pleasant, somewhat unfortunate 60-year-old female well known to [facility], diagnosed with adenocarcinoma of the lung in 03/2020. The patient was originally diagnosed with clinical stage IIIB disease. She was evaluated for possible surgical resection, deemed to be a poor candidate. Subsequently, she went on to receive concurrent chemoradiation therapy, which began in mid May of this year and completed treatment on 07/14/2020. She was in the midst of receiving consolidative carboplatin and paclitaxel when she developed headache and dizziness. She also complained of some numbness involving her hands and feet, which she gets occasionally, probably attributable to prior paclitaxel most likely. She presented to the Emergency Room, underwent a full radiographic workup including MRI of the brain, which revealed 2 distinct intracerebral and cerebellar lesions. The cerebellar lesion is on the left and additionally a larger lesion within the right parietal lobe. She was appropriately loaded with dexamethasone. Radiation oncology has been activated and is currently in consultation with Ms. Evans. I have been asked to render an opinion regarding treatment moving forward. Mansi was in good spirits when I visited with her at bedside. She offers no complaint of pain or discomfort. She is quite thin and has always been that way. 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 PAST MEDICAL HISTORY: Significant for, 1. Locally advanced non-small cell lung cancer. 2. COPD. 3. History of ovarian cancer. 4. Tobacco abuse. PAST SURGICAL HISTORY: Includes tooth extraction, removal of right ovary, appendectomy, bronchoscopy. MEDICATIONS PRIOR TO ADMISSION: Albuterol inhaler and Flovent. ALLERGIES: No known drug allergies. SOCIAL HISTORY: The patient is single. She is a 20-[id number]-louz smoker, continues to smoke cigarettes at the current time. Negative for alcohol or illicit drugs. FAMILY HISTORY: She has a sister who also suffered with lung and endometrial cancer as well as diabetes mellitus. Mother of complication of diabetes. Uncle is attributable to colorectal cancer. REVIEW OF SYSTEMS: As per HPI, most notably for dizziness and lightheadedness, which led to admission. She is not anorexic or losing weight per se. She is cachectic in appearance. SKIN: No rashes or lesions. No history of dermatoses. HEENT: Positive for headaches, lightheadedness and dizziness. No acute visual or hearing deficits. No sinus symptoms, sore throat or dysphagia. LYMPHATICS: No history of lymphoproliferative disease. CARDIAC: No history of coronary artery disease. No current angina or palpitations. PULMONARY: Positive for COPD. She is not acutely short of breath, dyspneic or orthopneic. GASTROINTESTINAL: Negative for abdominal pain, nausea, vomiting, diarrhea or constipation, hematochezia or melena stools. GENITOURINARY: No hematuria, dysuria, or urinary incontinence. PSYCHIATRIC: Negative for anxiety, depression, or psychoses. MUSCULOSKELETAL: No focal muscle weakness or arthralgias. ENDOCRINE: Negative for diabetes or thyroid disease. NEUROLOGIC: Negative for seizure, stroke or migraine headaches. HEMATOLOGIC: Positive for anemia attributable to treatment. PHYSICAL EXAMINATION: GENERAL: A very pleasant, conversant 60-year-old female patient, looks much older than her stated age, in no acute distress. VITAL SIGNS: Temperature 36.3, pulse 70, respiratory rate 16, blood pressure 120/57. SKIN: Warm, dry. Noncyanotic without petechia, rash or ecchymosis. Turgor is poor. HEENT: Atraumatic, normocephalic. Eyes: PERRLA. Nares patent without rhinorrhea or discharge. Throat clear. Tongue midline. There were no buccal lesions or ulcerations noted. NECK: Supple. HEART: Regular rate and rhythm. LUNGS: Scattered rhonchi heard in all antonio. ABDOMEN: Soft, nontender, nondistended, without palpable hepatosplenomegaly. EXTREMITIES: No calf tenderness or swelling. MUSCULOSKELETAL: Strength and pulses are equal in all 4 quadrants. NEUROLOGIC: Grossly intact. LABORATORY DATA: WBC count 2940, hemoglobin 11.6, platelet count 408,000. Sodium 138, potassium 4.1, chloride 107, carbon dioxide 28, creatinine 0.74, BUN 17. IMPRESSION: 1. Central nervous system metastatic disease, parietal and left cerebellum involved. 2. Locally advanced non-small cell lung cancer, in the midst of consolidative chemotherapy. 3. Chronic obstructive pulmonary disease. 4. Deep venous thrombosis prophylaxis. PLAN: In summary, It was my pleasure to visit with Mansi this morning at bedside. She developed neurologic symptoms, specifically dizziness and lightheadedness, which prompted her to come to the Emergency Room. MRI confirms 2 metastatic lesions within the Right parietal area and the Left cerebellum. Appropriately, she was placed on dexamethasone and will receive radiation therapy to the brain. As for resumption of consolidative therapy, we will delay for the foreseeable future, butl plan to complete consolidation once she has fully recovered from whole brain radiation therapy. Her prognosis is quite poor, but admire her, Ms. Evans's spirits are high and anxious to return to work as soon as possible. I have nothing further to add and we'll ensure Mansi is scheduled for prompt post-hospitalization followup visit. Thank you very much for allowing me to participate in her care. Job ID: [id number] [facility]
== END 2020-10-01 12:56 | disposition home or self-care (01) | DRG 55 ==
LOC: ED 09:20 → SUATTDRO 13:59 → 3N 13:59
DX: J44.9 Chronic obstructive pulmonary disease, unspecified; Z92.3 Personal history of irradiation; F17.210 Nicotine dependence, cigarettes, uncomplicated; C79.31 Secondary malignant neoplasm of brain; Z83.3 Family history of diabetes mellitus; Z86.16 Personal history of COVID-19; Z66 Do not resuscitate; C34.91 Malignant neoplasm of unspecified part of right bronchus or lung; Z80.1 Family history of malignant neoplasm of trachea, bronchus and lung; Z85.43 Personal history of malignant neoplasm of ovary

== ENCOUNTER 2020-10-21 10:14 | Inpatient (IN) ==
[2020-10-21] MEDS ORDERED: SODIUM CHLORIDE 0.9% 1000ML 1,000 ML IV SCH (10:45)
--- NOTE | 2020-10-21 11:02 | CT Scan Report ---
CT head/brain wo con CLINICAL HISTORY: 60 years-old Female with left sided weakness. Acutely altered mental status with l eft-sided weakness TECHNIQUE: Multiple axial CT images of the head were obtained without contrast. A dose lowering tech nique was utilized adhering to the principles of ALARA. CT DOSE: 537.48 mGy.cm COMPARISON: Brain MRI and CT head 09/29/2020 FINDINGS: There is progressive metastatic edema within the right frontal lobe and left cerebellar hemisphere wh ich has moderately progressed from the 09/29/2020 exam's. This results in associated local mass effect with gyral expansion and sulcal effacement. There is no midline shift of the falx cerebri. Edema wit hin the posterior fossa results in partial effacement of the fourth ventricle. There is no acute intr acranial hemorrhage, hydrocephalus or acute territorial infarct. Cavum septum pellucidum and vergae. The calvarium is intact. The paranasal sinuses, mastoid air cells, and middle ear cavities are clear . IMPRESSION: 1. No acute intracranial hemorrhage, or acute territorial infarct. 2. Progressively worsened vasogenic edema within the right frontal lobe and left cerebellar hemispher e related to the patient's known intracranial metastasis. Edema may be on a post therapeutic basis ve rsus disease progression. The edema within the posterior fossa results in partial effacement of the f ourth ventricle without hydrocephalus or herniation. ACT 112: Negative or not required by law. The above report was generated using voice recognition software. It may contain grammatical, syntax o r spelling errors. Electronically signed by: Moises Sow M.D. 10/21/2020 11:00 AM
--- NOTE | 2020-10-21 11:21 | XRay Report ---
SINGLE VIEW CHEST CLINICAL HISTORY: Generalized weakness. Lung cancer. FINDINGS: An AP, portable, upright chest radiograph is compared to study dated 09/29/2020 and correlat ed with chest CT dated 10/10/2020. A right internal jugular central venous infusion port is unchanged in position. The cardiomediastinal silhouette is unremarkable. Emphysema and chronic interstitial thi ckening is similar to previous. Subpleural abnormality in the right upper lobe is consistent with the patient's known history of lung cancer. This was much better assessed on the recent chest CT. There is no airspace consolidation typical for pneumonia or large pleural effusion. No pneumothorax is seen . The skeletal structures are osteopenic. The bony thorax is grossly intact. IMPRESSION: 1. Emphysematous change with no acute cardiopulmonary abnormality. 2. Subpleural abnormality in the right upper lobe is consistent with the patient's known history of l argelia cancer. This was better assessed on the recent chest CT. ACT 112: Negative or not required by law. Electronically signed by: Ion Goldsmith M.D. 10/21/2020 11:20 AM
[2020-10-21 11:50] LABS: Basophils # (auto) 0.02 K/uL (0-0.2); Basophils % (auto) 0.5 %; Eosinophils # (auto) 0.16 K/uL (0-0.5); Eosinophils % (auto) 3.8 %; Hemoglobin 12.7 g/dL (12.0-16.0); Immature Granulocytes # (auto) 0.01 K/uL (0.00-0.02); Immature Granulocytes % (auto) 0.2 %; Lymphocytes % (auto) 21.6 %; Mean Corpuscular Hemoglobin 35.8 pg (25-34); Mean Corpuscular Hgb Conc 34.3 g/dL (32-36); Mean Corpuscular Volume 104.2 fL (80-100); Mean Platelet Volume 9.4 fL (7.4-10.4); Monocytes # (auto) 0.56 K/uL (0.11-0.59); Monocytes % (auto) 13.4 %; Neutrophils # (auto) 2.52 K/uL (1.4-6.5); Neutrophils % (auto) 60.5 %; Platelet Count 282 K/uL (130-400); RDW Coefficient of Variation 13.2 % (11.5-14.5); RDW Standard Deviation 50.4 fL (36.4-46.3); Red Blood Count 3.55 M/uL (4.2-5.4); White Blood Count 4.17 K/uL (4.8-10.8)
[2020-10-21 12:14] LABS: Alanine Aminotransferase 21 U/L (12-78); Albumin Level 3.7 gm/dl (3.4-5.0); Aspartate Aminotransferase 22 U/L (15-37); BUN Creatinine Ratio 39.4 (10-20); Blood Urea Nitrogen 23 mg/dl (7-18); Carbon Dioxide 27 mmol/L (21-32); Chloride 108 mmol/L (98-107); Creatinine Clr Calc Pharmacy 57.3 ml/min; Est GFR (African American) 113.9 ml/min; Est GFR (Non-African American) 98.2 ml/min; Glucose 86 mg/dl (70-99); Magnesium 2.3 mg/dl (1.8-2.4); Potassium 3.7 mmol/L (3.5-5.1); Sodium 139 mmol/L (136-145)
[2020-10-21 12:25] LABS: Albumin Globulin Ratio 1.2 (0.9-2); Alkaline Phosphatase 48 U/L (45-117); Bilirubin,Total 0.3 mg/dl (0.2-1); Globulin 3.2 gm/dl (2.5-4.0); Total Protein 6.9 gm/dl (6.4-8.2); Troponin I < 0.015 ng/ml (0-0.045)
[2020-10-21] MEDS ORDERED: dexAMETHasone**PF** 10 MG/ML VIAL IV ONE (12:31)
--- NOTE | 2020-10-21 13:13 | History & Physical Report ---
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 Lorenzana Consult to radiation oncology Dr. Bro NSS + KCl 20 mEq at 100 mils per hour Zofran 4 mg IV every 6 hours as needed Famotidine 20 mg IV every 12 hours Acetaminophen 600 mg p.o. every 6 hours as needed mild pain or fever (2) Metastatic adenocarcinoma to brain: Plan: See above (3) Adenocarcinoma of lung: Plan: See above (4) COPD (chronic obstructive pulmonary disease): Plan: Continue Arnuity Ellipta and Trelegy Ellipta. Placed on duo nebs every 2 hours as needed (5) Tobacco abuse: History of Present Illness Chief Complaint: The patient is referred to the emergency department due to altered mental status and progressive generalized weakness Primary Care Provider: Bo Hutchison MD The patient is a 60-year-old female with a past medical history including tobacco abuse, adenocarcinoma of lung, metastatic adenocarcinoma to brain, vertigo, dizziness, and COPD. She is referred to the emergency department due to altered mental status and progressive weakness. Work-up in the emergency department included CT scan of brain, which showed increasing vasogenic edema. Oncology Dr. Lorenzana was consulted by the ED, and recommends patient be admitted for IV Decadron and radiation therapy Allergies Allergy/AdvReac Type Severity Reaction Status Date / Time No Known Allergies Allergy Verified 10/21/20 11:57 Home Medications Medication Instructions Recorded Confirmed Type albuterol sulfate 90 mcg/actuation 2 puff INHALATION QID PRN 09/29/20 10/21/20 History aerosol inhaler fluticasone fur. 100 mcg-umeclid 1 inh INHALATION DAILY 09/29/20 10/21/20 History 62.5 mcg-vilant 25 mcg inhalat.powder (Trelegy Ellipta) meclizine 25 mg tablet 25 mg PO TID PRN #90 tab 10/01/20 10/21/20 Rx fluticasone furoate 100 1 inh INHALATION DAILY 10/21/20 10/21/20 History mcg/actuation blister powder for inhalation (Arnuity Ellipta) Past Med/Surg History Medical History (Updated 10/21/20 @ 13:10 by Meliton Cristobal MD) COPD (chronic obstructive pulmonary disease) Last exacerbation approx one month ago Encounter for pre-operative examination History of ovarian cancer SURGERY FOR - AGE 16 Lab test positive for detection of COVID-19 virus Lung cancer Tobacco abuse Wrist pain, left Surgical History History of anesthesia reaction AFTER BRONCHOSCOPY, HAD TO STAY OVERNIGHT D/T LOW OXYGEN LEVELS - APR 092020 History of bronchoscopy (04/09/20) History of surgery (~1976) RIGHT OVARY REMOVED, AND APPENDECTOMY (SAME SURGERY) S/P appendectomy S/P removal of right ovary (~1976) S/P tooth extraction (~10/2019) all of them Family History Sister Age: 64 Diabetes Lung cancer Endometrial ca Mother Diabetes Uncle Colorectal cancer Other Breast cancer Myocardial infarction Ovarian cancer Prostate cancer Social History Smoking Status: Current every day smoker Age Started Using Tobacco: 16; packs per day: 2; Years Smoked: 44; Cigarettes Per Day: 3; Second Hand Exposure: No; Hx Alcohol Use: No Hx Substance Use: No Preferred Language: Monegasque Communication Ability: Effective Visual Impairment: No Limitations Hearing Ability: Normal Director Content Marketing Required: No Beliefs That Will Affect Care: None marital status: Unknown Current Living Situation: Family Current Living Situation Comment: DANIEL QUIÑONES 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 How many Children do You have: 0 How many Children do You have Comment: 0 other: "I hate pills and needles" Feels Safe at Home: Yes Childhood Exposure to Second-Hand Smoke: Yes (dad smoked) Diet Comment: eats well caffeine: Yes (one pot of coffee daily; occasional Coca Cola) during the past year weight has: decreased > 10 lbs Dental Care, Regularly: Yes Physical Activity Frequency: Does not Exercise Physical Activity Frequency Comment: physical job Seatbelt Use: always Sunscreen Use: No Assistive Devices: None Review of Systems Review of Systems: The patient denies chest pain, palpitations, shortness of breath, dyspnea on exertion, cough, lower extremity swelling, sore throat, fevers, chills, sweats, weight change, fatigue, nausea, vomiting, diarrhea , constipation, abdominal pain, pelvic pain, blood in urine or stool, dysuria, urinary frequency or urgency, memory loss, loss of consciousness, rash, abnormal bruising or bleeding, focal weakness, numbness or tingling in arms or legs, generalized arthralgias or myalgias, back or neck pain, or night sweats. The review of systems is otherwise negative other than for that already noted above, and at least 10 systems have been reviewed. Physical Exam Physical Exam: The patient is awake, alert and oriented 3, thin and emaciated, normocephalic and atraumatic, lying in bed and in no acute distress. HEENT--PERRL, EOMI, mucous membranes and oropharynx normal. Neck--supple. No JVD. No bruits. Thyroid normal, trachea midline, no adenopathy. Heart--normal S1 and S2. No murmurs, rubs or gallops. Lungs--clear bilaterally, no respiratory distress, no accessory muscle use. Abdomen--normal bowel sounds and soft. Nontender. Nondistended. Extremities--no cyanosis or clubbing. No edema. Dermatologic--normal skin turgor, normal color, no abnormal lymph nodes, no rash. Neurologic--cranial nerves II through XII grossly intact. Rheumatologic--normal range of motion. Psychiatric--normal affect. Results & Data Results & Data ([facility]) Vital Signs (Past 12 Hours) Vital Signs Temp Pulse Pulse Resp BP BP Pulse Ox 10/21/20 13:02 97.5 F L 70 14 98 10/21/20 11:53 66 18 93 10/21/20 10:42 61 18 104/61 97 10/21/20 10:20 98.2 F 72 18 104/61 97 Laboratory Results Laboratory Results WBC 4.17 K/uL (4.8-10.8) L 10/21/20 11:35 RBC 3.55 M/uL (4.2-5.4) L 10/21/20 11:35 Hgb 12.7 g/dL (12.0-16.0) 10/21/20 11:35 Hct 37.0 % (37-47) 10/21/20 11:35 MCV 104.2 fL (80-100) H 10/21/20 11:35 MCH 35.8 pg (25-34) H 10/21/20 11:35 MCHC 34.3 g/dL (32-36) 10/21/20 11:35 RDW Std Deviation 50.4 fL (36.4-46.3) H 10/21/20 11:35 RDW Coeff of Jesús 13.2 % (11.5-14.5) 10/21/20 11:35 Plt Count 282 K/uL (130-400) 10/21/20 11:35 MPV 9.4 fL (7.4-10.4) 10/21/20 11:35 Immature Gran % (Auto) 0.2 % 10/21/20 11:35 Neut % (Auto) 60.5 % 10/21/20 11:35 Lymph % (Auto) 21.6 % 10/21/20 11:35 [place] % (Auto) 13.4 % 10/21/20 11:35 Eos % (Auto) 3.8 % 10/21/20 11:35 Baso % (Auto) 0.5 % 10/21/20 11:35 Neut # (Auto) 2.52 K/uL (1.4-6.5) 10/21/20 11:35 Lymph # (Auto) 0.90 K/uL (1.2-3.4) L 10/21/20 11:35 [place] # (Auto) 0.56 K/uL (0.11-0.59) 10/21/20 11:35 Eos # (Auto) 0.16 K/uL (0-0.5) 10/21/20 11:35 Baso # (Auto) 0.02 K/uL (0-0.2) 10/21/20 11:35 Immature Gran # (Auto) 0.01 K/uL (0.00-0.02) 10/21/20 11:35 Sodium 139 mmol/L (136-145) 10/21/20 11:35 Potassium 3.7 mmol/L (3.5-5.1) 10/21/20 11:35 Chloride 108 mmol/L (98-107) H 10/21/20 11:35 Carbon Dioxide 27 mmol/L (21-32) 10/21/20 11:35 Anion Gap 4.0 (3-11) 10/21/20 11:35 BUN 23 mg/dl (7-18) H 10/21/20 11:35 Creatinine 0.59 mg/dl (0.6-1.2) L 10/21/20 11:35 Est Cr Clr Drug Dosing 57.3 ml/min 10/21/20 11:35 Est GFR ( Amer) 113.9 ml/min 10/21/20 11:35 Est GFR (Non-Af Amer) 98.2 ml/min 10/21/20 11:35 BUN/Creatinine Ratio 39.4 (10-20) H 10/21/20 11:35 Glucose 86 mg/dl (70-99) 10/21/20 11:35 Calcium 9.0 mg/dl (8.5-10.1) 10/21/20 11:35 Magnesium 2.3 mg/dl (1.8-2.4) 10/21/20 11:35 Total Bilirubin 0.3 mg/dl (0.2-1) 10/21/20 11:35 AST 22 U/L (15-37) 10/21/20 11:35 ALT 21 U/L (12-78) 10/21/20 11:35 Alkaline Phosphatase 48 U/L (45-117) 10/21/20 11:35 Troponin I < 0.015 ng/ml (0-0.045) 10/21/20 11:35 Total Protein 6.9 gm/dl (6.4-8.2) 10/21/20 11:35 Albumin 3.7 gm/dl (3.4-5.0) 10/21/20 11:35 Globulin 3.2 gm/dl (2.5-4.0) 10/21/20 11:35 Albumin/Globulin Ratio 1.2 (0.9-2) 10/21/20 11:35 TSH 0.540 uIu/ml (0.300-4.500) 10/21/20 11:35 Impressions Chest X-Ray 10/21/20 10:39 SINGLE VIEW CHEST CLINICAL HISTORY: Generalized weakness. Lung cancer. FINDINGS: An AP, portable, upright chest radiograph is compared to study dated 09/29/2020 and correlated with chest CT dated 10/10/2020. A right internal jugular central venous infusion port is unchanged in position. The cardiomediastinal silhouette is unremarkable. Emphysema and chronic interstitial thickening is similar to previous. Subpleural abnormality in the right upper lobe is consistent with the patient's known history of lung cancer. This was much better assessed on the recent chest CT. There is no airspace consolidation typical for pneumonia or large pleural effusion. No pneumothorax is seen. The skeletal structures are osteopenic. The bony thorax is grossly intact. IMPRESSION: 1. Emphysematous change with no acute cardiopulmonary abnormality. 2. Subpleural abnormality in the right upper lobe is consistent with the patient's known history of lung cancer. This was better assessed on the recent chest CT. ACT 112: Negative or not required by law. Electronically signed by: Ion Goldsmith M.D. 10/21/2020 11:[address] 10/21/20 10:39 CT head/brain wo con CLINICAL HISTORY: 60 years-old Female with left sided weakness. Acutely altered mental status with left-sided weakness TECHNIQUE: Multiple axial CT images of the head were obtained without contrast. A dose lowering technique was utilized adhering to the principles of ALARA. CT DOSE: 537.48 mGy.cm COMPARISON: Brain MRI and CT head 09/29/2020 FINDINGS: There is progressive metastatic edema within the right frontal lobe and left cerebellar hemisphere which has moderately progressed from the 09/29/2020 exam's. This results in associated local mass effect with gyral expansion and sulcal effacement. There is no midline shift of the falx cerebri. Edema within the posterior fossa results in partial effacement of the fourth ventricle. There is no acute intracranial hemorrhage, hydrocephalus or acute territorial infarct. Cavum septum pellucidum and vergae. The calvarium is intact. The paranasal sinuses, mastoid air cells, and middle ear cavities are clear. IMPRESSION: 1. No acute intracranial hemorrhage, or acute territorial infarct. 2. Progressively worsened vasogenic edema within the right frontal lobe and left cerebellar hemisphere related to the patient's known intracranial metastasis. Edema may be on a post therapeutic basis versus disease progression. The edema within the posterior fossa results in partial effacement of the fourth ventricle without hydrocephalus or herniation. ACT 112: Negative or not required by law. The above report was generated using voice recognition software. It may contain grammatical, syntax or spelling errors. Electronically signed by: Moises Sow M.D. 10/21/2020 11:00 AM Code Status & VTE Plan Code Status Full code VTE Prophylaxis Plan VTE Prophylaxis will be ordered: Yes PG Care Time/CCT Total # of Minutes Spent Total Time Spent with Patient: Total time spent is greater than 50% in coordination of care (as documented) at patient's floor/unit and/or counseling patient: Coding Level of Care Code 81390 Initial Inpt Care Lvl 2 Diagnoses Tobacco abuse Z72.0 Vasogenic brain edema G93.6 Metastatic adenocarcinoma to brain C79.31 COPD (chronic obstructive pulmonary disease) J44.9 COPD type: unspecified COPD Adenocarcinoma of lung C34.90 Laterality: unspecified laterality (1) COPD (chronic obstructive pulmonary disease) COPD type: unspecified COPD Qualified Code(s): J44.9 - Chronic obstructive pulmonary disease, unspecified (2) Adenocarcinoma of lung Laterality: unspecified laterality Qualified Code(s): C34.90 - Malignant neoplasm of unspecified part of unspecified bronchus or lung
--- NOTE | 2020-10-21 15:00 | Radiation OncologyConsultation ---
Date of Consultation October 21, 2020 Assessment & Plan (1) Metastatic adenocarcinoma to brain: Assessment: Ms. Evans is a 60-year-old female with locally advanced non-small cell lung carcinoma who now most likely presents with metastatic disease to the brain. The patient was receiving adjuvant chemotherapy in the outpatient setting underneath the supervision of [facility]. She was diagnosed with metastatic disease involving the brain. The patient was previous ly seen in consultation regarding her metastatic disease in the brain and the recommendation was for SBRT. The patient underwent CT simulation on 10/07/2020. The patient has represented to the emergency room due to increased neurologic deficits with vasogenic edema. The patient is being admitted for further care. Patient was given dexamethasone in the emergency room. Plan: 1. Continue Dexamethasone 4 mg PO four times a day. 4 mg PO three times a day would also be appropriate if patient cannot tolerate 4 times a day. 2. MRI of Brain with contrast to confirm no significant changes with disease. If no significant changes, proceed with SBRT shortly. If there are noticeable changes, new SBRT plan will need to be complete using the new MRI. Will start in inpatient setting if patient still admitted. Treatment can continue in the outpatient setting. 3. Call us with any further questions or concerns. History of Present Illness History of Present Illness 01/2020. Patient presents with cough and minor weight loss. Denies hemoptysis. 02/11/2020. Chest x-ray. IMPRESSION: 1. 2.5 cm masslike opacity of the lateral subpleural right upper lung. Primary bronchogenic neoplasm is the diagnosis of exclusion. Nonemergent follow-up chest CT recommended. 2. Emphysema with likely chronic interstitial coarsening. 03/03/2020. CT of chest. IMPRESSION: 1. Irregularly marginated 27 x 22 x 18 mm right upper lobe pulmonary mass, highly suspicious for a primary bronchogenic carcinoma. 2. Mildly enlarged mediastinal lymph nodes. 3. Emphysema. 04/02/2020. PET/CT. IMPRESSION: 1. A 2.5 cm spiculated right upper lobe pulmonary nodule is FDG avid. This should be considered lung cancer until per o therwise. 2. Enlarged and FDG avid right hilar and mediastinal lymph nodes are consistent with brooks metastatic disease. 3. There is no evidence of distant metastatic disease in the abdomen or pelvis. 4. There is asymmetric soft tissue thickening with associated FDG activity identified involving the left pharyngeal tissues at the base of the tongue. No clear mass lesion is seen on the low-dose CT images. Correlation with direct visualization is recommended. 5. Emphysema. 6. Additional findings as above. 04/10/2020. Bronchoscopy with EBUS by Dr. Sierra. Station 4L, 4R, 7, 11R are all positive for metastatic adenocarcinoma. 04/29/2019. Medical oncology consultation. Recommendation is consideration of chemotherapy and radiation therapy with potential surgical opinion. MRI brain ordered. 05/09/2020. Pulmonary function testing. Impression: Severe airflow obstruction. 05/21/2020. MRI brain. IMPRESSION: 1. No acute intracranial abnormality. 2. No evidence for intracranial metastatic disease. 3. Dysgenesis of the corpus callosum. 06/02/2020 to 07/14/2020. External beam radiation therapy to chest. 6000 cGy. 30 fractions. 200 cGy per fraction. Concurrent chemotherapy. 09/29/2020. Patient presents to emergency room due to dizziness. 09/29/2020. Chest x-ray. IMPRESSION: 1. No acute cardiopulmonary findings. 2. Decrease in size of the previously described right upper lobe lesion. 09/29/2020. CT of head without contrast. IMPRESSION: 1. There are foci of edema within the high right frontal lobe and the left cerebellar hemisphere. These are new from the 05/21/2020 MRI and highly suspicious for underlying metastatic disease. Correlation with a contrast-enhanced MRI of the brain is recommended for further assessment. 2. There is no hemorrhage, midline shift, or evidence of acute territorial ischemia by CT criteria. 09/30/2020. MRI brain. IMPRESSION: 1. Interval development of peripherally enhancing foci of restricted diffusion within left cerebellar lobe and right p arietal lobe which also shows restricted diffusion and prominent surrounding vasogenic edema highly concerning for metastatic disease. Findings will be sent to the ordering physician office. 2. No acute intracranial hemorrhage or midline shift is seen. 3. Redemonstration of dysgeneses of the corpus callosum. 4. Mild chronic small vessel ischemia. 09/30/2020. Radiation oncology progress note. Recommendation is for SBRT. 10/07/2020. CT simulation for treatment planning for radiation therapy for SBRT brain. 10/21/2020. Patient presents to emergency room due to strokelike symptoms. Patient will be admitted to hospital for further work-up and evaluation. 10/21/2020. CT of head without contrast. IMPRESSION: 1. No acute intracranial hemorrhage, or acute territorial infarct. 2. Progressively worsened vasogenic edema within the right frontal lobe and left cerebellar hemisphere related to the patient's known intracranial metastasis. Edema may be on a post therapeutic basis versus disease progression. The edema within the posterior fossa results in partial effacement of the fourth ventricle without hydrocephalus or herniation. Allergies Allergy/AdvReac Type Severity Reaction Status Date / Time No Known Allergies Allergy Verified 10/21/20 11:57 Home Medications Medication Instructions Recorded Confirmed Type albuterol sulfate 90 mcg/actuation 2 puff INHALATION QID PRN 09/29/20 10/21/20 History aerosol inhaler fluticasone fur. 100 mcg-umeclid 1 inh INHALATION DAILY 09/29/20 10/21/20 History 62.5 mcg-vilant 25 mcg inhalat.powder (Trelegy Ellipta) meclizine 25 mg tablet 25 mg PO TID PRN #90 tab 10/01/20 10/21/20 Rx fluticasone furoate 100 1 inh INHALATION DAILY 10/21/20 10/21/20 History mcg/actuation blister powder for inhalation (Arnuity Ellipta) Patient History Medical History (Updated 10/21/20 @ 15:03 by Beverly Bro MD) COPD (chronic obstructive pulmonary disease) Last exacerbation approx one month ago Encounter for pre-operative examination History of ovarian cancer SURGERY FOR - AGE 16 Lab test positive for detection of COVID-19 virus Lung cancer Tobacco abuse Wrist pain, left Surgical History History of anesthesia reaction AFTER BRONCHOSCOPY, HAD TO STAY OVERNIGHT D/T LOW OXYGEN LEVELS - APR 09-2020 History of bronchoscopy (04/09/20) History of surgery (~1976) RIGHT OVARY REMOVED, AND APPENDECTOMY (SAME SURGERY) S/P appendectomy S/P removal of right ovary (~1976) S/P tooth extraction (~10/2019) all of them Family History Sister Age: 64 Diabetes Lung cancer Endometrial ca Mother Diabetes Uncle Colorectal cancer Other Breast cancer Myocardial infarction Ovarian cancer Prostate cancer Social History (Reviewed 09/29/20 @ 16:09 by ERICA Zavaleta Smoking Status: Current every day smoker Age Started Using Tobacco: 16; packs per day: 2; Years Smoked: 44; Cigarettes Per Day: 3; Second Hand Exposure: No; Hx Alcohol Use: No Hx Substance Use: No Preferred Language: German Communication Ability: Effective Visual Impairment: No Limitations Hearing Ability: Normal Senior Clinical Data Manager Required: No Beliefs That Will Affect Care: None marital status: Unknown Current Living Situation: Family Current Living Situation Comment: SISTER DANIEL 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 How many Children do You have: 0 How many Children do You have Comment: 0 other: "I hate pills and needles" Feels Safe at Home: Yes Childhood Exposure to Second-Hand Smoke: Yes (dad smoked) Diet Comment: eats well caffeine: Yes (one pot of coffee daily; occasional Coca Cola) during the past year weight has: decreased > 10 lbs Dental Care, Regularly: Yes Physical Activity Frequency: Does not Exercise Physical Activity Frequency Comment: physical job Seatbelt Use: always Sunscreen Use: No Assistive Devices: None Physical Exam Constitutional: WD/WN, vitals as above well developed and well nourished Eyes: PERRL, conjunctivae normal, anicteric sclerae ENMT: external ear and nose normal, oropharynx normal Neck: trachea midline, no thyromegaly Respiratory: normal respiratory effort, lungs clear to auscultation Cardiovascular: RRR, no murmur, no edema Gastrointestinal (Abdomen): normal bowel sounds, soft, nontender, no hepatosplenomegaly Musculoskeletal: no cyanosis or clubbing, extremities motor strength 5/5 Skin: no rashes, warm and dry Neurologic: Weakness in L upper extremity. Psychiatric: A+Ox3, euthymic affect
--- NOTE | 2020-10-21 15:31 | Electrocardiogram Report ---
Test Reason : Blood Pressure : / mmHG Vent. Rate : 064 BPM Atrial Rate : 064 BPM P-R Int : 116 ms QRS Dur : 082 ms QT Int : 420 ms P-R-T Axes : 051 084 066 degrees QTc Int : 433 ms Normal sinus rhythm Low voltage QRS Borderline ECG When compared with ECG of 29-SEP-2020 09:27, No significant change was found Confirmed by Isidoro rAmstrong ([id number]) on 10/21/2020 3:31:38 PM Referred By: Mendoza Lorenzana Confirmed By:Jose Antonio Armstrong
[2020-10-21] MEDS ORDERED: ONDANSETRON INJ 2 MG/ML 2 ML VIAL IV PRN (15:38)
[2020-10-21] MEDS ORDERED: ALBUT/IPRATROP 3MG/0.5MG NEB 3 ML VIAL NEB PRN (15:38)
[2020-10-21] MEDS ORDERED: ACETAMINOPHEN 325 MG TAB PO PRN (15:38)
[2020-10-21] MEDS: FAMOTIDINE 20 MG in SYRINGE 3 ML IV SCH (16:25)
[2020-10-21] MEDS: NSS + 20MEQ KCL 20 MEQ/1,000 ML BAG IV SCH (16:41)
[2020-10-21] MEDS ORDERED: GADOBUTROL 65ML VIAL IV ONE (17:32)
--- NOTE | 2020-10-21 17:32 | Emergency Department Note ---
Impression & Plan Acute left-sided weakness, Adenocarcinoma of lung, Metastatic adenocarcinoma to brain, Vasogenic brain edema ED Provider Note INFORMANT: Patient ED PROVIDER(S): Nile Gill MD CHIEF COMPLAINT: Weakness PLAN: Disposition: Admitted Condition: Guarded Outpatient prescription management: none Referral: None MEDICAL DECISION MAKING: Patient presented to emergency room because of left-sided weakness. She was directed here by oncology. She was evaluated and did have noticeable left-sided weakness in the arm and leg. The patient has an unfortunate diagnosis of metastatic adenocarcinoma. She underwent CT imaging as well as blood work. The patient had unremarkable labs except for dehydration noted on chemistry panel. She was hydrated. The patient's ECG did not show any acute findings. Her head CT was concerning as she has vasogenic edema around her brain mets. I did dis cuss this with Dr. Kearns of oncology. He would like for her to have a consult with radiation. I did discuss IV steroids and he recommended 12 mg IV now and then 4 mg every 8 hours. 12 mg was ordered by me. Consultation was made with Dr. Meliton Cristobal of the [facility] service. Patient was evaluated in the ER for further management. Triage Nursing notes reviewed and agree them. Vital Signs: reviewed and remarkable for no significant abnormalities Differential diagnosis: Complication of cancer, infection, dehydration, metabolic abnormality, hypo/hyperglycemia, electrolyte disturbance, anemia, hypoxia, cardiac sources, intracerebral event, toxicologic, neurologic, as well as other pathologies. Diagnostics interpreted by me: ECG: Twelve-lead ECG reveals normal sinus rhythm at 64 bpm. Low voltage QRS. No ST elevation or depression. No PACs or PVCs. Cardiac Monitoring: Cardiac monitoring ordered by me: The patient was placed on continuous cardiac monitoring and observed. It revealed a normal sinus rhythm at sixty-eight beats per minute without ectopy or evidence of dysrhythmia. Imaging studies: Head CT reveals vasogenic edema around the brain mets. I refer you to the EMR for further details. HPI: The patient is a [age] year old female who presents to the Emergency Room with complaints of weakness on the left side. This started 2 days ago and is described in the left arm and left leg. She notes having two minor falls without injury.. The patient also notes the following associated symptoms, dizziness. The patient has found no relieving factors. Current pain is rated as zero/10. 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 She has been treated with chemotherapy and radiation for her lungs but has not undergone radiation treatment for her brain mets. The patient notes that she was directed here by oncology after she contacted him via telephone. Pt denies LOC, headache, fevers, chills, diaphoresis, visual changes, neck pain, chest pain, breathing difficulties, nausea, vomiting, abdominal pain, back pain, melena, hematochezia, urinary symptoms, numbness, lymphadenopathy, rash, or other complaints. ROS: See above HPI for pertinent positives & negatives. A total of 10 systems reviewed and were otherwise negative. PAST MEDICAL HISTORY:See Below , lung cancer PAST SURGICAL HISTORY:See Below, Mediport FAMILY HISTORY:See Below SOCIAL HISTORY:See Below, smoker HOME MEDICATIONS:See Below ALLERGIES:See Below VITALS:See Below PHYSICAL EXAMINATION: GENERAL: Awake, alert, thin-appearing, in no distress HENT: Normocephalic, atraumatic. Oropharynx unremarkable. EYES: Normal conjunctiva. Sclera non-icteric. PERRLA. EOMI. NECK: Inspection normal. Non-tender. Supple. No nuchal rigidity. FROM. No masses. RESPIRATORY: Clear to auscultation. No wheezes. No rales. Normal respiratory effort. CARDIAC: Normal rate. Normal rhythm. No murmurs. No rubs. Extremities warm and well perfused. Pulses equal. No JVD. GI: Soft, non-distended. No tenderness to palpation. No rebound or guarding. No masses. RECTAL: Deferred. MUSCULOSKELETAL: Atraumatic. Chest examination reveals no tenderness. The back is symmetrical on inspection without obvious abnormality. There is no CVA tenderness to palpation. No joint edema. LOWER EXTREMITIES: Calves are equal size bilaterally and non-tender. No edema. No discoloration. NEURO: Normal sensorium. No sensory deficits noted. Weakness of the left upper extremity noted. 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 Left lower extr emity weakness noted as well. Mild drift. Cranial nerves intact. SKIN: No rash or jaundice noted. Nile Gill MD Past Med/Surg History Medical History (Updated 10/21/20 @ 17:32 by Nile Gill MD) COPD (chronic obstructive pulmonary disease) Last exacerbation approx one month ago Encounter for pre-operative examination History of ovarian cancer SURGERY FOR - AGE 16 Lab test positive for detection of COVID-19 virus Lung cancer Tobacco abuse Wrist pain, left Surgical History History of anesthesia reaction AFTER BRONCHOSCOPY, HAD TO STAY OVERNIGHT D/T LOW OXYGEN LEVELS - APR 092020 History of bronchoscopy (04/09/20) History of surgery (~1976) RIGHT OVARY REMOVED, AND APPENDECTOMY (SAME SURGERY) S/P appendectomy S/P removal of right ovary (~1976) S/P tooth extraction (~10/2019) all of them Family History Sister Age: 64 Diabetes Lung cancer Endometrial ca Mother Diabetes Uncle Colorectal cancer Other Breast cancer Myocardial infarction Ovarian cancer Prostate cancer Social History Smoking Status: Current every day smoker Age Started Using Tobacco: 16; packs per day: 2; Years Smoked: 44; Cigarettes Per Day: 2 packs per/day; Second Hand Exposure: Yes; Hx Alcohol Use: Yes Alcohol type: beer and hard liquor Alcohol type Comment: 2 Alcohol Intake Frequency Comment: annually at New Years Brenda Hx Substance Use: No Preferred Language: Brazilian Communication Ability: Effective Visual Impairment: No Limitations Hearing Ability: Normal Detail Manager Required: No Beliefs That Will Affect Care: None marital status: Unknown Current Living Situation: Family Current Living Situation Comment: lives with older sister 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 How many Children do You have: 0 How many Children do You have Comment: 0 other: "I hate pills and needles" Feels Safe at Home: Yes Childhood Exposure to Second-Hand Smoke: Yes (dad smoked) Diet Comment: eats well caffeine: Yes (one pot of coffee daily; occasional Coca Cola) during the past year weight has: decreased > 10 lbs Dental Care, Regularly: Yes Physical Activity Frequency: Does not Exercise Physical Activity Frequency Comment: physical job Seatbelt Use: always Sunscreen Use: No Assistive Devices: Glasses Allergies Allergies Allergy/AdvReac Type Severity Reaction Status Date / Time No Known Allergies Allergy Verified 10/21/20 11:57 Home Meds Home Medications Medication Instructions Recorded Confirmed albuterol sulfate 90 mcg/actuation 2 puff INHALATION QID PRN 09/29/20 10/21/20 aerosol inhaler fluticasone fur. 100 mcg-umeclid 1 inh INHALATION DAILY 09/29/20 10/21/20 62.5 mcg-vilant 25 mcg inhalat.powder (Trelegy Ellipta) fluticasone furoate 100 1 inh INHALATION DAILY 10/21/20 10/21/20 mcg/actuation blister powder for inhalation (Arnuity Ellipta) Previous Rx's Medication Instructions Recorded meclizine 25 mg tablet 25 mg PO TID PRN #90 tab 10/01/20 Results & Data (ED) Vital Signs Vital Signs - 24 hr 10/21/20 10:20 10/21/20 10:24 10/21/20 10:42 Temperature 36.8 C Temperature Source Oral Pulse Rate 72 73 Pulse Rate [Apical] 61 Pulse Rate from SpO2 Sensor 73 Pulse Rhythm Respiratory Rate 18 20 18 Respiratory Effort / Characteristics Non-Labored Spontaneous Non-Labored Respiratory Depth Normal Normal Respiratory Pattern Regular Blood Pressure 104/61 104/61 Blood Pressure [Right Arm] 104/61 Blood Pressure Mean 75 75 Blood Pressure Mean [Right Arm] 75 Blood Pressure Position Sitting Pulse Oximetry 97 96 97 Oxygen Delivery Method Room Air Room Air Oxygen Flow Rate Sepsis Recent Fever Within 48 Hours No Sepsis New/Unexplained Change in Mental Status No Sepsis Action Taken by Nursing No Action Required Pulse Oximetry Post Tiitration 10/21/20 11:53 10/21/20 11:54 10/21/20 12:30 Temperature Temperature Source Pulse Rate 66 70 Pulse Rate [Apical] Pulse Rate from SpO2 Sensor Pulse Rhythm Regular Respiratory Rate 18 18 Respiratory Effort / Characteristics Respiratory Depth Respiratory Pattern Blood Pressure Blood Pressure [Right Arm] Blood Pressure Mean Blood Pressure Mean [Right Arm] Blood Pressure Position Pulse Oximetry 93 96 Oxygen Delivery Method Nasal Cannula Nasal Cannula Oxygen Flow Rate 2 2 Sepsis Recent Fever Within 48 Hours Sepsis New/Unexplained Change in Mental Status Sepsis Action Taken by Nursing Pulse Oximetry Post Tiitration 93 10/21/20 13:02 Temperature 36.4 C L Temperature Source Oral Pulse Rate Pulse Rate [Apical] 70 Pulse Rate from SpO2 Sensor Pulse Rhythm Respiratory Rate 14 Respiratory Effort / Characteristics Respiratory Depth Respiratory Pattern Blood Pressure Blood Pressure [Right Arm] Blood Pressure Mean Blood Pressure Mean [Right Arm] Blood Pressure Position Pulse Oximetry 98 Oxygen Delivery Method Room Air Oxygen Flow Rate Sepsis Recent Fever Within 48 Hours Sepsis New/Unexplained Change in Mental Status Sepsis Action Taken by Nursing Pulse Oximetry Post Tiitration Laboratory Data Result diagrams: 10/21/20 11:35 10/21/20 11:35 Lab Results 10/21/20 10/21/20 Range/Units 11:35 11:35 WBC 4.17 L (4.8-10.8) K/uL RBC 3.55 L (4.2-5.4) M/uL Hgb 12.7 (12.0-16.0) g/dL Hct 37.0 (37-47) % MCV 104.2 H (80-100) fL MCH 35.8 H (25-34) pg MCHC 34.3 (32-36) g/dL RDW Std Deviation 50.4 H (36.4-46.3) fL RDW Coeff of Jesús 13.2 (11.5-14.5) % Plt Count 282 (130-400) K/uL MPV 9.4 (7.4-10.4) fL Immature Gran % (Auto) 0.2 % Neut % (Auto) 60.5 % Lymph % (Auto) 21.6 % [place] % (Auto) 13.4 % Eos % (Auto) 3.8 % Baso % (Auto) 0.5 % Neut # (Auto) 2.52 (1.4-6.5) K/uL Lymph # (Auto) 0.90 L (1.2-3.4) K/uL [place] # (Auto) 0.56 (0.11-0.59) K/uL Eos # (Auto) 0.16 (0-0.5) K/uL Baso # (Auto) 0.02 (0-0.2) K/uL Immature Gran # (Auto) 0.01 (0.00-0.02) K/uL Sodium 139 (136-145) mmol/L Potassium 3.7 (3.5-5.1) mmol/L Chloride 108 H (98-107) mmol/L Carbon Dioxide 27 (21-32) mmol/L Anion Gap 4.0 (3-11) BUN 23 H (7-18) mg/dl Creatinine 0.59 L (0.6-1.2) mg/dl Est Cr Clr Drug Dosing 57.3 ml/min Est GFR ( Amer) 113.9 ml/min Est GFR (Non-Af Amer) 98.2 ml/min BUN/Creatinine Ratio 39.4 H (10-20) Glucose 86 (70-99) mg/dl Calcium 9.0 (8.5-10.1) mg/dl Magnesium 2.3 (1.8-2.4) mg/dl Total Bilirubin 0.3 (0.2-1) mg/dl AST 22 (15-37) U/L ALT 21 (12-78) U/L Alkaline Phosphatase 48 (45-117) U/L Troponin I < 0.015 (0-0.045) ng/ml Total Protein 6.9 (6.4-8.2) gm/dl Albumin 3.7 (3.4-5.0) gm/dl Globulin 3.2 (2.5-4.0) gm/dl Albumin/Globulin Ratio 1.2 (0.9-2) TSH 0.540 (0.300-4.500) uIu/ml Administered Medications Potassium Chloride/Sodium Chloride (Normal Saline W/20 Meq Kcl) 20 meq in 1,000 mls @ 100 mls/hr IV .Q10H NATTY Stop: 11/20/20 13:14 Last Admin: 10/21/20 16:41 Dose: 100 mls/hr Documented by: [id number] Famotidine 20 mg/ Syringe 5 mls @ 2.5 mls/min IV Q12H NATTY Stop: 11/20/20 16:59 Last Admin: 10/21/20 16:25 Dose: 2.5 mls/min Documented by: [id number] Discontinued Medications Dexamethasone Sodium Phosphate (DexamethasonePf 10 Mg/Ml Vial) 12 mg IV NOW ONE Stop: 10/21/20 12:32 Last Admin: 10/21/20 12:55 Dose: 12 mg Documented by: [id number] Sodium Chloride (Nss 1000ml) 1,000 mls @ 125 mls/hr IV .Q8H NATTY Stop: 10/21/20 18:44 Last Infusion: 10/21/20 15:38 Dose: 0 mls/hr Documented by: [id number] Admin: 10/21/20 11:42 Dose: 125 mls/hr Documented by: [id number] Imaging Data Radiologist's Impression: Chest X-Ray 10/21/20 10:39 SINGLE VIEW CHEST CLINICAL HISTORY: Generalized weakness. Lung cancer. FINDINGS: An AP, portable, upright chest radiograph is compared to study dated 09/29/2020 and correlated with chest CT dated 10/10/2020. A right internal jugular central venous infusion port is unchanged in position. The cardiomediastinal silhouette is unremarkable. Emphysema and chronic interstitial thickening is similar to previous. Subpleural abnormality in the right upper lobe is c onsistent with the patient's known history of lung cancer. This was much better assessed on the recent chest CT. There is no airspace consolidation typical for pneumonia or large pleural effusion. No pneumothorax is seen. The skeletal structures are osteopenic. The bony thorax is grossly intact. IMPRESSION: 1. Emphysematous change with no acute cardiopulmonary abnormality. 2. Subpleural abnormality in the right upper lobe is consistent with the patient's known history of lung cancer. This was better assessed on the recent chest CT. ACT 112: Negative or not required by law. Electronically signed by: Ion Goldsmith M.D. 10/21/2020 11:[address] 10/21/20 10:39 CT head/brain wo con CLINICAL HISTORY: 60 years-old Female with left sided weakness. Acutely altered mental status with left-sided weakness TECHNIQUE: Multiple axial CT images of the head were obtained without contrast. A dose lowering technique was utilized adhering to the principles of ALARA. CT DOSE: 537.48 mGy.cm COMPARISON: Brain MRI and CT head 09/29/2020 FINDINGS: There is progressive metastatic edema within the right frontal lobe and left cerebellar hemisphere which has moderately progressed from the 09/29/2020 exam's. This results in associated local mass effect with gyral expansion and sulcal effacement. There is no midline shift of the falx cerebri. Edema within the posterior fossa results in partial effacement of the fourth ventricle. There is no acute intracranial hemorrhage, hydrocephalus or acute territorial infarct. Cavum septum pellucidum and vergae. The calvarium is intact. The paranasal sinuses, mastoid air cells, and middle ear cavities are clear. IMPRESSION: 1. No acute intracranial hemorrhage, or acute territorial infarct. 2. Progressively worsened vasogenic edema within the right frontal lobe and left cerebellar hemisphere related to the patient's known intracranial metastasis. Edema may be on a post therapeutic basis versus disease progression. The edema within the posterior fossa results in partial effacement of the fourth ventricle without hydrocephalus or herniation. ACT 112: Negative or not required by law. The above report was generated using voice recognition software. It may contain grammatical, syntax or spelling errors. Electronically signed by: Moises Sow M.D. 10/21/2020 11:00 AM Discharge Plan Visit Data Chief Complaint: Weakness Stated Complaint: L SIDE WEAKNESS, ED Provider: Nile Gill Discharge Problem: Acute left-sided weakness, Adenocarcinoma of lung, Metastatic adenocarcinoma to brain, Vasogenic brain edema Patient Disposition: Admitted As Inpatient Discharge Instructions Interventions: ED Discharge Assessment Last Done: 10/21/20 15:26
--- NOTE | 2020-10-21 18:18 | Magnetic Resonance Report ---
MRI OF THE BRAIN WITHOUT AND WITH IV CONTRAST CLINICAL HISTORY: increasing vasogenic brain edema COMPARISON STUDY: September 29, 2020 TECHNIQUE: MRI of the brain was performed from the vertex to the skull base utilizing various T1 and T2 weighted sequences. Following the IV administration of 4 mL of Gadavist contrast, additional enhan anderson images were obtained. FINDINGS: Sagittal T1, axial diffusion, proton density and T2 weighted axial, coronal FLAIR, and pre and post a xial T1-weighted images were acquired. These were supplemented with post gadolinium coronal T1 weight ed images. Previously seen focal area of restricted diffusion within left cerebellar lobe and the right parietal lobe appear more conspicuous since recent prior study performed on September 29, 2020. Previously seen va sogenic edema surrounding this lesions is significantly increased since recent prior however does not show mass effect on adjacent lateral ventricle. Above-mentioned lesions are enhanced after intravenous contrast administration, lesion within right p arietal lobe is measuring 11 mm in diameter, it was measured 7 mm during prior study. Enhancing lesion within left cerebellar lobe is now measuring 18 x 12 mm, it was measured 14 x 9 mm d uring prior study. No areas of of acute intracranial hemorrhage or midline shift is seen.. There is no evidence of ventricular dilatation. Proton density T2-weighted and FLAIR images also reveal scattered foci of increased T2 signal within the white matter, likely on a small vessel basis. There are no abnormal flow voids. IMPRESSION: 1. Interval enlargement in size of previously enhancing lesions within right parietal lobe and left cerebellar lobe which again shows restricted diffusion and interval prominence of surrounding vasogen ic edema. Findings are highly concerning for metastatic disease. ACT 112: Negative or not required by law. The above report was generated using voice recognition software. It may contain grammatical, syntax o r spelling errors. Electronically signed by: Khadra Leach DO 10/21/2020 6:17 PM
[2020-10-21] MEDS: dexAMETHasone 4 MG in SYRINGE 0 ML IV SCH (20:00)
[2020-10-21] MEDS: HEPARIN SOD 5,000 UNIT/0.5 ML VIAL SQ SCH (20:23)
[2020-10-21 21:01] LABS: Appearance Urine Cloudy (Clear); Bacteria Urine Automated Negative (Negative); Bilirubin Urine Negative (Negative); Blood Urine Negative (Negative); Color Urine Yellow; Epithelial Cell Urine Auto >30 /lpf (0-5); Glucose Urine UA Negative (Negative); Ketones Urine Negative (Negative); Leukocyte Esterase Urine 2+ (Negative); Nitrite Urine Negative (Negative); Protein Urine Negative (Negative); Specific Gravity Urine 1.009 (1.000-1.030); Urobilinogen Urine Negative (Negative); WBC Urine Automated >30 /hpf (0-5); pH Urine 5.5 (4.5-7.5)
[2020-10-21 22:02] LABS: RBC Urine Automated 0-4 /hpf (0-4)
[2020-10-22] MEDS: MECLIZINE HCL 25 MG TAB PO PRN (01:11)
[2020-10-22] MEDS: dexAMETHasone 4 MG in SYRINGE 0 ML IV SCH ×4 (01:11→21:31)
[2020-10-22] MEDS: NSS + 20MEQ KCL 20 MEQ/1,000 ML BAG IV SCH ×3 (01:11→21:08)
[2020-10-22] MEDS: FAMOTIDINE 20 MG in SYRINGE 3 ML IV SCH ×2 (05:55→16:32)
[2020-10-22] MEDS: HEPARIN SOD 5,000 UNIT/0.5 ML VIAL SQ SCH ×2 (07:48→21:31)
[2020-10-22] MEDS: UMECLIDINIUM/VILANTEROL 62.5/25MCG 7 PUFFS/INHALER INH SCH (07:48)
[2020-10-22] MEDS: FLUTICASONE FUROATE 100MCG 14 PUFFS/INHALER INH SCH (07:48)
--- NOTE | 2020-10-22 08:49 | Radiation Oncology Progress Nt ---
Date of Service October 22, 2020 Assessment & Plan (1) Metastatic adenocarcinoma to brain: Plan: Assessment: Ms. Evans is a 60-year-old female with locally advanced non-small cell lung carcinoma who now most likely presents with metastatic disease to the brain. The patient was receiving adjuvant chemotherapy in the outpatient setting underneath the supervision of [facility]. She was diagnosed with metastatic disease involving the brain. The patient was previously seen in consultation regarding her metastatic disease in the brain and the recommendation was for SBRT. The patient underwent CT simulation on 10/07/2020. The patient has represented to the emergency room due to increased neurologic deficits with vasogenic edema. The patient is was admitted for management. MRI of Brain completed on 10/21/2020 does show progression of disease in both areas of metastatic disease but no new areas of involvement. Plan: 1. Recommend considering reducing Dexamethasone to 4 mg PO three times a day due to agitation. If patient still agitated, considering reducing further as needed. 2. Radiation therapy SBRT plan will need to be replanned due to increase in size of lesions. We will plan to utilize the original CT simulation data set and incorporat findings from most recent MRI of the brain. Patient's treatment will be delayed by at least 1 to 2 days. 3. Call us with any further questions or concerns. Admission and Anticipated Discharge Date Admission Date: October 21, 2020 Physical Exam Constitutional: Agitated at bed side. Results & Data ([facility]) Vital Signs (Past 12 Hours) Vital Signs Temp Pulse Resp BP Pulse Ox 10/22/20 07:41 36.5 C 69 16 119/68 96 10/21/20 22:26 36.8 C 18 99/67 L 97 Diagnostic Findings 10/21/2020. MRI brain. IMPRESSION: 1. Interval enlargement in size of previously enhancing lesions within right parietal lobe and left cerebellar lobe which again shows restricted diffusion and interval prominence of surrounding vasogenic edema. Findings are highly concerning for metastatic disease.
[2020-10-22 08:50] LABS: Hematocrit (blood only) 36.9 % (37-47); Hemoglobin 12.8 g/dL (12.0-16.0); Immature Granulocytes # (auto) 0.01 K/uL (0.00-0.02); Immature Granulocytes % (auto) 0.1 %; Lymphocytes # (auto) 0.68 K/uL (1.2-3.4); Lymphocytes % (auto) 9.6 %; Mean Corpuscular Hemoglobin 35.8 pg (25-34); Mean Corpuscular Hgb Conc 34.7 g/dL (32-36); Mean Corpuscular Volume 103.1 fL (80-100); Mean Platelet Volume 9.5 fL (7.4-10.4); Monocytes # (auto) 0.16 K/uL (0.11-0.59); Monocytes % (auto) 2.3 %; Neutrophils # (auto) 6.22 K/uL (1.4-6.5); Platelet Count 307 K/uL (130-400); RDW Coefficient of Variation 13.1 % (11.5-14.5); RDW Standard Deviation 49.3 fL (36.4-46.3); Red Blood Count 3.58 M/uL (4.2-5.4); White Blood Count 7.07 K/uL (4.8-10.8)
[2020-10-22 09:22] LABS: Albumin Level 3.6 gm/dl (3.4-5.0); BUN Creatinine Ratio 36.3 (10-20); Creatinine Clr Calc Pharmacy 56.7 ml/min; Est GFR (African American) 110.3 ml/min; Est GFR (Non-African American) 95.2 ml/min; Magnesium 1.9 mg/dl (1.8-2.4); Potassium 4.1 mmol/L (3.5-5.1)
[2020-10-22 09:24] LABS: Albumin Globulin Ratio 1.1 (0.9-2); Bilirubin,Total 0.3 mg/dl (0.2-1); Globulin 3.3 gm/dl (2.5-4.0); Total Protein 6.9 gm/dl (6.4-8.2)
--- NOTE | 2020-10-22 22:22 | Hospitalist Progress Note ---
Date of Service October 22, 2020 Assessment & Plan (1) Vasogenic brain edema: Plan: 2nd metastases to brain from adenocarcinoma of the lung. s/p dexamethasone 12 mg IV in the ED. Then initiated on dexamethasone 6 mg IV every [address] Bro from rad onc saw in consult - recommends lowering the dexamethasone to 4mg IV q8h. Probable radiation to the brain later this week or early next week. Supportive care. (2) Metastatic adenocarcinoma to brain: Plan: See above (3) Adenocarcinoma of lung: Plan: RUL as seen on most recent chest CT (4) COPD (chronic obstructive pulmonary disease): Plan: Continue Arnuity Ellipta and Trelegy Ellipta. Duonebs prn. No exacerbation at this time. (5) Tobacco abuse: Plan: Can offer nicoderm if desired. (6) Underweight: Plan: BMI 17 2nd to #3 (7) Vertigo: Plan: 2nd to cerebellar mets as seen on MRI meclizine prn (8) Encephalopathy acute: Plan: 2nd to brain mets with edema cont dexamethasone serial exams & supportive care (9) DVT prophylaxis: Plan: heparin 5000 BID Plan: pepcid IV Bid for GI proph while on high-dose steroids Admission and Anticipated Discharge Date Admission Date: October 21, 2020 Subjective patient very emotional during the visit. 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 she was confused at times often not understanding everything we were talking about. denied any headache. denies any vertigo during my visit. Review of Systems Review of Systems: gen - no fevers CV - no pain pulm - no dyspnea GI - no pain Physical Exam Physical Exam: gen - cachectic, emotional lability mouth - MMM heart - RRR, s1 s2 lungs - wheeze b/l abd - soft NT ND BS+ ext - <1+ edema b/l psych - oriented to person/place/time but considerable emotional lability Results & Data Results & Data ([facility]) Vital Signs (Past 12 Hours) Vital Signs Temp Pulse Resp BP Pulse Ox 10/22/20 15:12 36.9 C 81 16 100/54 L 96 Laboratory Results Laboratory Results - last 24 hr 10/22/20 10/22/20 08:27 08:27 WBC 7.07 RBC 3.58 L Hgb 12.8 Hct 36.9 L MCV 103.1 H MCH 35.8 H MCHC 34.7 RDW Std Deviation 49.3 H RDW Coeff of Jesús 13.1 Plt Count 307 MPV 9.5 Immature Gran % (Auto) 0.1 Neut % (Auto) 88.0 Lymph % (Auto) 9.6 [place] % (Auto) 2.3 Eos % (Auto) 0.0 Baso % (Auto) 0.0 Neut # (Auto) 6.22 Lymph # (Auto) 0.68 L [place] # (Auto) 0.16 Eos # (Auto) 0.00 Baso # (Auto) 0.00 Immature Gran # (Auto) 0.01 Sodium 139 Potassium 4.1 Chloride 110 H Carbon Dioxide 23 Anion Gap 6.0 BUN 24 H Creatinine 0.65 Est Cr Clr Drug Dosing 56.7 Est GFR ( Amer) 110.3 Est GFR (Non-Af Amer) 95.2 BUN/Creatinine Ratio 36.3 H Glucose 115 H Calcium 9.0 Magnesium 1.9 Total Bilirubin 0.3 AST 19 ALT 21 Alkaline Phosphatase 47 Total Protein 6.9 Albumin 3.6 Globulin 3.3 Albumin/Globulin Ratio 1.1 PG Care Time/CCT Total # of Minutes Spent Total Time Spent with Patient: Total time spent is greater than 50% in coordination of care (as documented) at patient's floor/unit and/or counseling patient: Coding Level of Care Code 99847 Subseq Hosp Care Lvl 2 Diagnoses Vasogenic brain edema G93.6 Metastatic adenocarcinoma to brain C79.31 Adenocarcinoma of lung C34.90 COPD (chronic obstructive pulmonary disease) J44.9 COPD type: unspecified COPD Tobacco abuse Z72.0 Underweight R63.6 Vertigo R42 Encephalopathy acute G93.40 DVT prophylaxis Z29.9 (1) COPD (chronic obstructive pulmonary disease) COPD type: unspecified COPD Qualified Code(s): J44.9 - Chronic obstructive pulmonary disease, unspecified
[2020-10-23] MEDS: FAMOTIDINE 20 MG in SYRINGE 3 ML IV SCH ×2 (05:05→17:43)
[2020-10-23] MEDS: dexAMETHasone 4 MG in SYRINGE 0 ML IV SCH ×3 (05:05→21:17)
[2020-10-23] MEDS: FLUTICASONE FUROATE 100MCG 14 PUFFS/INHALER INH SCH (08:03)
[2020-10-23] MEDS: UMECLIDINIUM/VILANTEROL 62.5/25MCG 7 PUFFS/INHALER INH SCH (08:04)
[2020-10-23] MEDS: HEPARIN SOD 5,000 UNIT/0.5 ML VIAL SQ SCH ×2 (08:07→20:00)
[2020-10-23 08:46] LABS: Hematocrit (blood only) 36.8 % (37-47); Hemoglobin 12.5 g/dL (12.0-16.0); Immature Granulocytes # (auto) 0.02 K/uL (0.00-0.02); Immature Granulocytes % (auto) 0.2 %; Lymphocytes # (auto) 0.71 K/uL (1.2-3.4); Lymphocytes % (auto) 7.6 %; Mean Corpuscular Hemoglobin 35.5 pg (25-34); Mean Corpuscular Volume 104.5 fL (80-100); Mean Platelet Volume 9.5 fL (7.4-10.4); Monocytes # (auto) 0.38 K/uL (0.11-0.59); Monocytes % (auto) 4.1 %; Neutrophils # (auto) 8.26 K/uL (1.4-6.5); Neutrophils % (auto) 88.1 %; Platelet Count 304 K/uL (130-400); RDW Coefficient of Variation 13.4 % (11.5-14.5); Red Blood Count 3.52 M/uL (4.2-5.4); White Blood Count 9.37 K/uL (4.8-10.8)
[2020-10-23 09:14] LABS: Albumin Level 3.7 gm/dl (3.4-5.0); BUN Creatinine Ratio 36.6 (10-20); Calcium 9.3 mg/dl (8.5-10.1); Creatinine Clr Calc Pharmacy 55.8 ml/min; Est GFR (African American) 109.7 ml/min; Est GFR (Non-African American) 94.7 ml/min; Magnesium 1.6 mg/dl (1.8-2.4); Potassium 4.1 mmol/L (3.5-5.1)
[2020-10-23 09:17] LABS: Albumin Globulin Ratio 1.1 (0.9-2); Bilirubin,Total 0.2 mg/dl (0.2-1); Globulin 3.2 gm/dl (2.5-4.0); Total Protein 6.9 gm/dl (6.4-8.2)
[2020-10-23] MEDS ORDERED: MAGNESIUM SULFATE / D5W 1 GM/100 ML BAG IV ONE (12:00)
[2020-10-23] MEDS: MECLIZINE HCL 25 MG TAB PO PRN (21:18)
--- NOTE | 2020-10-23 23:08 | Hospitalist Progress Note ---
Date of Service October 23, 2020 Assessment & Plan (1) Vasogenic brain edema: Plan: 2nd brain mets from lung ca. clinically improved. Mentation improved today. cont dexamethasone 5mg IV q8h. spoke with Dr Bro from rad onc today - hoping for XRT to start either TOMORROW (Tuesday) or Tuesday of this coming week. (2) Metastatic adenocarcinoma to brain: Plan: See above (3) Adenocarcinoma of lung: Plan: RUL with mets to brain follows with Dr Lorenzana, CCP; and Dr Bro, rad onc (4) COPD (chronic obstructive pulmonary disease): Plan: Continue Arnuity Ellipta and Trelegy Ellipta. Wheezing on exam but largely asymptomatic today. (5) Tobacco abuse: Plan: Can offer nicoderm if desired. 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 will give meclizine 25mg po x 1 at HS tonight. then schedule the meclizine 12.5mg BID starting tomorrow am to hopefully prevent her symptoms. (8) Encephalopathy acute: Plan: 2nd to brain mets with edema cont dexamethasone mental status better today (9) Mild protein-calorie malnutrition: Plan: would add MVI, boost, etc if willing to take 2nd to lung cancer (10) DVT prophylaxis: Plan: heparin 5000 BID (11) Hypomagnesemia: Plan: replace with IV mag repeat level in am Plan: pepcid IV Bid for GI proph while on high-dose steroids spoke with social work specialist - I am concerned about patient being alone at home post-d/c and her ability to get to rad onc treatment appointments PT, OT lavon and then go from there Admission and Anticipated Discharge Date Admission Date: October 21, 2020 Subjective patient eating her meal during my visit c/o vertigo again - tends to be the worst every morning upon awakening no headache feels that her thinking is better she reports that her sister - Letitia Evans with whom she lives - is in rehab at [facility] in [place] after a long stay at [facility] thus, if she returned home, she would be alone offers no other new complaints Review of Systems Review of Systems: gen - no fatigue reported today CV - no chest pain pulm - no dyspnea, but has baseline wheezing GI - no nausea/vomiting neuro - no focal motor weakness psych - anxious Physical Exam Physical Exam: gen - cachectic, less emotionally labile today, less anxious mouth - MMM; no thrush heart - RRR, s1 s2 lungs - wheeze b/l - no change from yesterday's exam abd - soft NT ND BS+ ext - trace edema b/l psych - a/o x 3 Results & Data Results & Data ([facility]) Vital Signs (Past 12 Hours) Vital Signs Temp Pulse Resp BP Pulse Ox 10/23/20 14:55 36.9 C 54 L 16 102/39 L 96 Laboratory Results Laboratory Results - last 24 hr 10/23/20 10/23/20 08:28 08:28 WBC 9.37 RBC 3.52 L Hgb 12.5 Hct 36.8 L MCV 104.5 H MCH 35.5 H MCHC 34.0 RDW Std Deviation 51.0 H RDW Coeff of Jesús 13.4 Plt Count 304 MPV 9.5 Immature Gran % (Auto) 0.2 Neut % (Auto) 88.1 Lymph % (Auto) 7.6 Refug[place] % (Auto) 4.1 Eos % (Auto) 0.0 Baso % (Auto) 0.0 Neut # (Auto) 8.26 H Lymph # (Auto) 0.71 L [place]ug[place] # (Auto) 0.38 Eos # (Auto) 0.00 Baso # (Auto) 0.00 Immature Gran # (Auto) 0.02 Sodium 139 Potassium 4.1 Chloride 109 H Carbon Dioxide 26 Anion Gap 4.0 BUN 24 H Creatinine 0.66 Est Cr Clr Drug Dosing 55.8 Est GFR ( Amer) 109.7 Est GFR (Non-Af Amer) 94.7 BUN/Creatinine Ratio 36.6 H Glucose 116 H Calcium 9.3 Magnesium 1.6 L Total Bilirubin 0.2 AST 17 ALT 22 Alkaline Phosphatase 46 Total Protein 6.9 Albumin 3.7 Globulin 3.2 Albumin/Globulin Ratio 1.1 PG Care Time/CCT Total # of Minutes Spent Total Time Spent with Patient: Total time spent is greater than 50% in coordination of care (as documented) at patient's floor/unit and/or counseling patient: Coding Level of Care Code 22068 Subseq Hosp Care Lvl 2 Diagnoses Vasogenic brain edema G93.6 Metastatic 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
[2020-10-23] MEDS ORDERED: MECLIZINE HCL 25 MG TAB PO STA (23:13)
[2020-10-24] MEDS: FAMOTIDINE 20 MG in SYRINGE 3 ML IV SCH (05:24)
[2020-10-24] MEDS: dexAMETHasone 4 MG in SYRINGE 0 ML IV SCH ×3 (05:24→21:39)
[2020-10-24 06:39] LABS: BUN Creatinine Ratio 40.2 (10-20); Calcium 9.5 mg/dl (8.5-10.1); Creatinine Clr Calc Pharmacy 44.9 ml/min; Est GFR (African American) 88.9 ml/min; Est GFR (Non-African American) 76.7 ml/min; Magnesium 2.3 mg/dl (1.8-2.4); Potassium 4.6 mmol/L (3.5-5.1)
[2020-10-24] MEDS: UMECLIDINIUM/VILANTEROL 62.5/25MCG 7 PUFFS/INHALER INH SCH (08:02)
[2020-10-24] MEDS: FLUTICASONE FUROATE 100MCG 14 PUFFS/INHALER INH SCH (08:02)
[2020-10-24] MEDS: HEPARIN SOD 5,000 UNIT/0.5 ML VIAL SQ SCH ×2 (08:07→21:38)
[2020-10-24] MEDS ORDERED: MECLIZINE 12.5 MG TAB PO SCH (09:00)
[2020-10-24] MEDS ORDERED: SODIUM CHLORIDE 0.9% 500 ML IV SCH (13:15)
--- NOTE | 2020-10-24 13:47 | Radiation Oncology Progress Nt ---
Date of Service October 24, 2020 Assessment & Plan (1) Metastatic adenocarcinoma to brain: Plan: Assessment: Ms. Evans is a 60-year-old female with locally advanced non-small cell lung carcinoma who now most likely presents with metastatic disease to the brain. The patient was receiving adjuvant chemotherapy in the outpatient setting underneath the supervision of [facility]. She was diagnosed with metastatic disease involving the brain. The patient was previously seen in consultation regarding her metastatic disease in the brain and the recommendation was for SBRT. The patient underwent CT simulation on 10/07/2020. The patient has represented to the emergency room due to increased neurologic deficits with vasogenic edema. The patient is was admitted for management. MRI of Brain completed on 10/21/2020 does show progression of disease in both areas of metastatic disease but no new areas of involvement. Plan: 1. Continue Dexamethasone as per primary team. Patient's mentation seems better today. 2. Radiation therapy SBRT plan will need to be replanned due to increase in size of lesions. We will plan to utilize the original CT simulation data set and incorporat findings from most recent MRI of the brain. Update: Plan to start treatment next Tuesday. I spoke to patient who understands as well. 3. Call us with any further questions or concerns. Admission and Anticipated Discharge Date Admission Date: October 21, 2020 Physical Exam Constitutional: WD/WN, vitals as above well developed and well nourished Skin: no rashes, warm and dry Psychiatric: A+Ox3, euthymic affect
[2020-10-24] MEDS ORDERED: bisacodyL 5 MG TABEC PO ONE (14:19)
[2020-10-24] MEDS ORDERED: bisacodyL 5 MG TABEC PO PRN (14:19)
--- NOTE | 2020-10-24 14:19 | Hospitalist Progress Note ---
Date of Service October 24, 2020 Assessment & Plan (1) Vasogenic brain edema: Plan: 2nd brain mets from lung ca. clinically improved. Mentation improved today. cont dexamethasone 5mg IV q8h --per Dr. Bro from Rad/onc, could decrease if emotional ability continues however patient stable on examination we will continue with current dose Patient home at this time until sister home from rehab or decision made for rehabcontinued therapy evaluations appreciated --> Per PT notes this morning patient did become dizzy however upon reviewing the patient she states that she was taking meclizine 25 mg up to 3 times a day at discharge last admission and had decreased herself to 25 mg twice daily. She notes that it was effective last night's dose but she noticed that this morning she took 12.5 mg and believes that this may be the cause and we did increase this to 25 mg scheduled twice daily we will continue to monitor how she does in therapy Given additional 500 cc normal saline for minimal dehydration on examination however patient's appetite has improved and is eating much more than days past little supplementation Dr. rBo to start XRT on Tuesdayif patient goes to rehab over the weekend can coordinate however will likely remain inpatient and received first treatment on Tuesday (2) Constipation: Plan: Stated that she had not moved her bowels since Tuesday and was recommended to be on a bowel regimen daily while on meclizine at her last discharge per patient account Scheduled MiraLAX and Colace twice daily Dulcolax x1 Denies any abdominal pain and is passing gas with active bowel sounds on exam Continue to monitor (3) Metastatic adenocarcinoma to brain: Plan: See above (4) Adenocarcinoma of lung: Plan: RUL with mets to brain follows with Dr Lorenzana, CCP; and Dr Bro, rad onc (5) COPD (chronic obstructive pulmonary disease): Plan: Continue Arnuity Ellipta and Trelegy Ellipta. Wheezing on exam but largely asymptomatic today--denies any shortness of breath and decreased wheezing on examination 92% on room air Albuterol neb as needed Continue to monitor (6) Tobacco abuse: Plan: Can offer nicoderm if desired. 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 Had been taking 25 mg 3 times daily as above and had weaned to 25 mg twice daily without recurrence of her vertigo however she did note last evening 25 mg given was successful but this morning the 12.5 mg dose did seem to dizziness with therapy Change. 25 mg twice daily continue to monitor (9) Encephalopathy acute: Plan: 2nd to brain mets with edema Resolved Sharp and giving exact dates and times for all previous procedures surgeries broken glass her foot as a child etc. cont dexamethasone (10) Mild protein-calorie malnutrition: Plan: would add MVI, boost, etc if willing to take --has been agreeable to supplementation 2nd to lung cancer (11) DVT prophylaxis: Plan: heparin 5000 BID while inpatient (12) Hypomagnesemia: Plan: replace with IV mag repeat level in am and normal limits at 2.3 Plan: pepcid IV Bid for GI proph while on high-dose steroids --continue to monitor Concerns for going home alone with family support as her sister typically helps is in rehab Adjustments to meclizine as above and continue to monitor progress with therapy but suspect patient be inpatient through the weekend discharged on Tuesday after her first radiation treatment to either home versus rehab based on her progress PT eval's today do note #dizziness has a high fall risk and recommend 24-hour support and assistance either at home or assisted livingsee above regarding sister need for continued monitoring Admission and Anticipated Discharge Date Admission Date: October 21, 2020 Supervising Physician Co-Signing Physician Notes [facility] Supervision Note: I did not personally see or examine the patient today, but I verified all moncada points of QUYNH Taylor's assessment and plan with the following exceptions/additions: None Subjective Eval this afternoon Doing well. No pain. Eating/drinking no issue. Good appetite and has been eating all trays and snacks -- did not eat the broccoli this morning because "it was old". Hasn't moved bowels since Tuesday. She states was told to take bowel regimen with the meclizine as can lead to constipation but notes no one has given any stool softeners since she has been in this time. With meclizine -- last admit told to take up to three times a day which kept her dizziness at bay and she weaned back to twice daily. She notes they were the 25mg tablets and they were effective last night but she thinks she got 12.5mg this morning and was dizzy with therapy this morning. Discussed will look at medications and increase to 25mg BID as well as schedule bowel regimen. Radiation to start Tuesday and will monitor over the weekend as plans for rehab initially however she notes having wheeled walker x 3 at home and believes with family support she could manage but we will see how she does. Her sister who usually helps her at home is in rehab currently. Review of Systems Review of Systems: All systems reviewed & are unremarkable except as noted in HPI & below Physical Exam Physical Exam: gen - 60-year-old female who appears chronically ill, cachectic, less emotionally labile today, less anxious. Cooperative and comfortable mouth - MMM; no thrush heart - RRR, s1 s2, no evidence of edema JVD lungs -continues to have faint bilateral wheezing but stable on room air with SPO2 92% Abdomen with positive bowel sounds throughout however is distended and palpable stool appreciated, no pain to palpation, no guarding or rigidity ext - trace edema b/l psych - a/o x 3 , pleasant euthymic and joking about childhood memories Results & Data Results & Data ([facility]) Vital Signs (Past 12 Hours) Vital Signs Temp Pulse Resp BP Pulse Ox 10/24/20 07:14 36.7 C 73 18 127/75 95 Laboratory Results 10/24/20 Range/Units 05:55 Sodium 137 (136-145) mmol/L Potassium 4.6 (3.5-5.1) mmol/L Chloride 104 (98-107) mmol/L Carbon Dioxide 30 (21-32) mmol/L Anion Gap 3.0 (3-11) BUN 33 H (7-18) mg/dl Creatinine 0.82 (0.6-1.2) mg/dl Est Cr Clr Drug Dosing 44.9 ml/min Est GFR ( Amer) 88.9 ml/min Est GFR (Non-Af Amer) 76.7 ml/min BUN/Creatinine Ratio 40.2 H (10-20) Glucose 105 H (70-99) mg/dl Calcium 9.5 (8.5-10.1) mg/dl Magnesium 2.3 (1.8-2.4) mg/dl PG Care Time/CCT Total # of Minutes Spent Total Time Spent with Patient: Total time spent is greater than 50% in coordination of care (as documented) at patient's floor/unit and/or counseling patient: Coding Level of Care Code 96870 Subseq Hosp Care Lvl 2 Diagnoses Vasogenic brain edema G93.6 Metastatic 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
[2020-10-24] MEDS ORDERED: HEPARIN 100 UNIT/ML 5ML FLUSH ONE ×2 (19:14→21:40)
[2020-10-24] MEDS: DOCUSATE SODIUM 100 MG CAP PO SCH (21:37)
[2020-10-24] MEDS: FAMOTIDINE 20 MG TAB PO SCH (21:37)
[2020-10-24] MEDS: POLYETHYLENE (MIRALAX) 17 GM PACK PO SCH (21:38)
[2020-10-24] MEDS: MECLIZINE HCL 25 MG TAB PO SCH (21:38)
[2020-10-25] MEDS: HEPARIN 100 UNIT/ML 5ML FLUSH FLUSH PRN ×2 (05:30→13:15)
[2020-10-25] MEDS: dexAMETHasone 4 MG in SYRINGE 0 ML IV SCH ×3 (05:30→21:03)
[2020-10-25 06:36] LABS: Hematocrit (blood only) 38.1 % (37-47); Hemoglobin 13.1 g/dL (12.0-16.0); Mean Corpuscular Hemoglobin 35.5 pg (25-34); Mean Corpuscular Hgb Conc 34.4 g/dL (32-36); Mean Corpuscular Volume 103.3 fL (80-100); Mean Platelet Volume 9.8 fL (7.4-10.4); Platelet Count 306 K/uL (130-400); RDW Standard Deviation 49.3 fL (36.4-46.3); Red Blood Count 3.69 M/uL (4.2-5.4); White Blood Count 8.73 K/uL (4.8-10.8)
[2020-10-25 07:34] LABS: Albumin Level 3.6 gm/dl (3.4-5.0); BUN Creatinine Ratio 45.2 (10-20); Calcium 9.3 mg/dl (8.5-10.1); Creatinine Clr Calc Pharmacy 54.2 ml/min; Est GFR (African American) 108.7 ml/min; Est GFR (Non-African American) 93.7 ml/min
[2020-10-25 07:36] LABS: Albumin Globulin Ratio 1.1 (0.9-2); Bilirubin,Total 0.3 mg/dl (0.2-1); Globulin 3.3 gm/dl (2.5-4.0); Total Protein 6.9 gm/dl (6.4-8.2)
[2020-10-25] MEDS: UMECLIDINIUM/VILANTEROL 62.5/25MCG 7 PUFFS/INHALER INH SCH (07:50)
[2020-10-25] MEDS: POLYETHYLENE (MIRALAX) 17 GM PACK PO SCH ×2 (07:50→20:14)
[2020-10-25] MEDS: MECLIZINE HCL 25 MG TAB PO SCH ×2 (07:50→20:13)
[2020-10-25] MEDS: FLUTICASONE FUROATE 100MCG 14 PUFFS/INHALER INH SCH (07:52)
[2020-10-25] MEDS: DOCUSATE SODIUM 100 MG CAP PO SCH ×2 (07:52→20:13)
[2020-10-25] MEDS: FAMOTIDINE 20 MG TAB PO SCH ×2 (07:52→20:13)
[2020-10-25] MEDS: HEPARIN SOD 5,000 UNIT/0.5 ML VIAL SQ SCH ×2 (07:53→20:13)
--- NOTE | 2020-10-25 08:09 | Hospitalist Progress Note ---
Date of Service October 25, 2020 Assessment & Plan (1) Vasogenic brain edema: Plan: 2nd brain mets from lung ca. clinically improved. Mentation improved today. cont dexamethasone 5mg IV q8h --per Dr. Bro from Rad/onc, could decrease if emotional ability continues however patient stable on examination we will continue with current dose Patient home at this time until sister home from rehab or decision made for rehabcontinued therapy evaluations appreciated --> Per PT notes morning 10/24 patient did become dizzy however upon reviewing the patient she states that she was taking meclizine 25 mg up to 3 times a day at discharge last admission and had decreased herself to 25 mg twice daily. She notes that it was effective last night's dose but she noticed that this morning she took 12.5 mg and believes that this may be the cause and we did increase this to 25 mg scheduled twice daily we will continue to monitor how she does in therapy --> No further vertigo with 25mg BID however PT note with patient still unsteady and unsafe for return home. Will continue to monitor daily and see if able to go home tomorrow with sister vs remain inpatient Eating/drinking ravenously, no further IVF Dr. Bro to start XRT on Tuesdayif patient goes to rehab over the weekend can coordinate however will likely remain inpatient and received first treatment on Tuesday (2) Constipation: Plan: Stated that she had not moved her bowels since Tuesday and was recommended to be on a bowel regimen daily while on meclizine at her last discharge per patient account Scheduled MiraLAX and Colace twice daily Dulcolax x1 RESOLVED -- + BM Continue to monitor (3) Metastatic adenocarcinoma to brain: Plan: See above (4) Adenocarcinoma of lung: Plan: RUL with mets to brain follows with Dr Lorenzana, CCP; and Dr Bro, rad onc (5) COPD (chronic obstructive pulmonary disease): Plan: Continue Arnuity Ellipta and Trelegy Ellipta. Wheezing on exam but largely asymptomatic today--denies any shortness of breath and decreased wheezing on examination 96% on room air Albuterol neb as needed Continue to monitor (6) Tobacco abuse: Plan: Can offer nicoderm if desired. 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 Had been taking 25 mg 3 times daily as above and had weaned to 25 mg twice daily without recurrence of her vertigo however she did note last evening 25 mg given was successful but this morning the 12.5 mg dose did seem to dizziness with therapy Change. 25 mg twice daily continue to monitor --> controlled and will continue on current dose but cautious w emotional lability -- at baseline currently but monitor (9) Encephalopathy acute: Plan: 2nd to brain mets with edema Resolved Sharp and giving exact dates and times for all previous procedures surgeries broken glass her foot as a child etc. cont dexamethasone (10) Mild protein-calorie malnutrition: Plan: would add MVI, boost, etc if willing to take --has been agreeable to supplementation 2nd to lung cancer (11) DVT prophylaxis: Plan: heparin 5000 BID while inpatient (12) Hypomagnesemia: Plan: replace with IV mag repeat level in am and normal limits at 2.3 Plan: continue dexamethasone Q8 as above pepcid IV Bid for GI proph while on high-dose steroids --continue to monitor Concerns for going home alone with family support as her sister typically helps is in rehab Adjustments to meclizine as above and continue to monitor progress with therapy but suspect patient be inpatient through the weekend discharged on Tuesday after her first radiation treatment to either home versus rehab based on her progress Continue PT/OT evals -- patient did well with strength but still slightly unsteady --> continue to monitor as needs 24hr support vs assisted living and sister who usually helps is in rehab at [facility] currently D/c tomorrow if able, however suspect she will remain inpatient though tuesday Patient upset this afternoon about noise and inability to sleep due to loud bells/TV/interruptions. Asked RN to keep door closed at all times when able. patient to ring young if she needs anything Lights out at night Melatonin 3mg HS tonight Admission and Anticipated Discharge Date Admission Date: October 21, 2020 Supervising Physician Co-Signing Physician Notes PA Supervision Note: I did not personally see or examine the patient today, but I verified all moncada points of QUY[facility] Taylor's assessment and plan with the following exceptions/additions: None Subjective Eval this morning. Doing well. Great appetite and eating all provided items. Older sister in rehab, unsure when to be released, but younger sister up and staying from [facility]. Patient would like to go home today if possible -- discussed if does well with therapy and sister able to stay, may be able to consider, however need to consider rehab if not. No further veritgo with scheduled meclicine 25mg BID and will continue. She did have a bowel movement which was normal and we will continue on current regimen. XRT to begin tuesday -- she notes she is glad they were able to find other spot for treatment and hoping to be able to treat like the last time. She notes she had weakness in her left side [employer] and popped right up from bed without issues today and was putting on her slippers to move about the room. Called therapy and they were entering on exit to repeat eval for veritgo/eval status. Will continue to monitor No fever, chills, chest pain, shortness of breath, abdominal pain, nausea vomiting or dysuria at this time. Review of Systems Review of Systems: All systems reviewed & are unremarkable except as noted in HPI & below Physical Exam Physical Exam: gen - 60-year-old female who appears chronically ill, cachectic, less emotionally labile today, less anxious. Cooperative and comfortable mouth - MMM; no thrush heart - RRR, s1 s2, no evidence of edema JVD lungs -continues to have faint bilateral wheezing but stable on room air with SPO2 92% Abdomen with positive bowel sounds throughout however is distended and palpable stool appreciated, no pain to palpation, no guarding or rigidity ext - trace edema b/l psych - a/o x 3 , pleasant euthymic and joking about childhood memories --> later this afternoon upset and crying about not being able to sleep Results & Data Results & Data ([facility]) Vital Signs (Past 12 Hours) Vital Signs Temp Pulse Resp BP Pulse Ox 10/25/20 05:10 36.9 C 63 18 106/62 95 10/24/20 22:42 37.0 C 73 16 125/68 95 Laboratory Results 10/25/20 10/25/20 Range/Units 06:15 06:15 WBC 8.73 (4.8-10.8) K/uL RBC 3.69 L (4.2-5.4) M/uL Hgb 13.1 (12.0-16.0) g/dL Hct 38.1 (37-47) % MCV 103.3 H (80-100) fL MCH 35.5 H (25-34) pg MCHC 34.4 (32-36) g/dL RDW Std Deviation 49.3 H (36.4-46.3) fL RDW Coeff of Jesús 13.0 (11.5-14.5) % Plt Count 306 (130-400) K/uL MPV 9.8 (7.4-10.4) fL Sodium 135 L (136-145) mmol/L Potassium 4.0 (3.5-5.1) mmol/L Chloride 102 (98-107) mmol/L Carbon Dioxide 26 (21-32) mmol/L Anion Gap 7.0 (3-11) BUN 31 H (7-18) mg/dl Creatinine 0.68 (0.6-1.2) mg/dl Est Cr Clr Drug Dosing 54.2 ml/min Est GFR ( Amer) 108.7 ml/min Est GFR (Non-Af Amer) 93.7 ml/min BUN/Creatinine Ratio 45.2 H (10-20) Glucose 118 H (70-99) mg/dl Calcium 9.3 (8.5-10.1) mg/dl Total Bilirubin 0.3 (0.2-1) mg/dl AST 83 H (15-37) U/L ALT 123 H (12-78) U/L Alkaline Phosphatase 50 (45-117) U/L Total Protein 6.9 (6.4-8.2) gm/dl Albumin 3.6 (3.4-5.0) gm/dl Globulin 3.3 (2.5-4.0) gm/dl Albumin/Globulin Ratio 1.1 (0.9-2) PG Care Time/CCT Total # of Minutes Spent Total Time Spent with Patient: Total time spent is greater than 50% in coordination of care (as documented) at patient's floor/unit and/or counseling patient: Coding Level of Care Code 52604 Subseq Hosp Care Lvl 2 Diagnoses Vasogenic brain edema G93.6 Constipation K59.00 Metastatic adenocarcinoma to brain C79.31 Adenocarcinoma of lung C34.90 COPD (chronic obstructive pulmonary disease) J44.9 COPD type: unspecified COPD Tobacco abuse Z72.0 Underweight R63.6 Vertigo R42 Encephalopathy acute G93.40 Mild protein-calorie malnutrition E44.1 DVT prophylaxis Z29.9 Hypomagnesemia E83.42 (1) COPD (chronic obstructive pulmonary disease) COPD type: unspecified COPD Qualified Code(s): J44.9 - Chronic obstructive pulmonary disease, unspecified
[2020-10-25] MEDS ORDERED: LORazepam 0.5 MG TAB PO STA (12:37)
[2020-10-25] MEDS ORDERED: LORazepam 0.5 MG TAB PO PRN (12:38)
[2020-10-25] MEDS: MELATONIN 3 MG TAB PO SCH (21:02)
[2020-10-26] MEDS: dexAMETHasone 4 MG in SYRINGE 0 ML IV SCH ×2 (05:49→12:57)
[2020-10-26 06:30] LABS: Hematocrit (blood only) 37.8 % (37-47); Mean Corpuscular Hemoglobin 35.6 pg (25-34); Mean Corpuscular Hgb Conc 34.4 g/dL (32-36); Mean Corpuscular Volume 103.6 fL (80-100); Mean Platelet Volume 9.9 fL (7.4-10.4); Platelet Count 306 K/uL (130-400); RDW Coefficient of Variation 12.9 % (11.5-14.5); RDW Standard Deviation 49.2 fL (36.4-46.3); Red Blood Count 3.65 M/uL (4.2-5.4); White Blood Count 8.63 K/uL (4.8-10.8)
[2020-10-26 07:07] LABS: Albumin Level 3.5 gm/dl (3.4-5.0); BUN Creatinine Ratio 42.6 (10-20); Calcium 9.5 mg/dl (8.5-10.1); Creatinine Clr Calc Pharmacy 58.5 ml/min; Est GFR (African American) 111.4 ml/min; Est GFR (Non-African American) 96.1 ml/min; Potassium 3.8 mmol/L (3.5-5.1)
[2020-10-26 07:10] LABS: Bilirubin,Total 0.2 mg/dl (0.2-1); Globulin 3.3 gm/dl (2.5-4.0); Total Protein 6.8 gm/dl (6.4-8.2)
[2020-10-26] MEDS: MECLIZINE HCL 25 MG TAB PO SCH ×2 (08:17→20:59)
[2020-10-26] MEDS: DOCUSATE SODIUM 100 MG CAP PO SCH ×2 (08:17→20:58)
[2020-10-26] MEDS: UMECLIDINIUM/VILANTEROL 62.5/25MCG 7 PUFFS/INHALER INH SCH (08:18)
[2020-10-26] MEDS: FLUTICASONE FUROATE 100MCG 14 PUFFS/INHALER INH SCH (08:18)
[2020-10-26] MEDS: POLYETHYLENE (MIRALAX) 17 GM PACK PO SCH ×2 (08:18→21:00)
[2020-10-26] MEDS: FAMOTIDINE 20 MG TAB PO SCH ×2 (08:18→20:59)
[2020-10-26] MEDS: HEPARIN SOD 5,000 UNIT/0.5 ML VIAL SQ SCH ×2 (08:19→21:00)
--- NOTE | 2020-10-26 08:25 | Hospitalist Progress Note ---
Date of Service October 26, 2020 Assessment & Plan (1) Vasogenic brain edema: Plan: 2nd brain mets from lung ca. clinically improved. Mentation improved today. cont dexamethasone 5mg IV q8h --decreased to 4mg Q8H IV and changed to PO today in preparation for possible d/c tomorrow Patient home at this time until sister home from rehab or decision made for rehabcontinued therapy evaluations appreciated- -> Per PT notes morning 10/24 patient did become dizzy however upon reviewing the patient she states that she was taking meclizine 25 mg up to 3 times a day at discharge last admission and had decreased herself to 25 mg twice daily. --> No further vertigo with 25mg BID however PT note with patient still unsteady and unsafe for return home. Will continue to monitor daily and see if able to go home tomorrow after rehab with other sister if willing to stay with her vs rehab at d/c. CM following and refs sent Eating/drinking ravenously, no further IVF Dr. Bro to start XRT on tomorrow -- rehab vs home with therapy/family support after (2) Constipation: Plan: Stated that she had not moved her bowels since Tuesday and was recommended to be on a bowel regimen daily while on meclizine at her last discharge per patient account Scheduled MiraLAX and Colace twice daily Dulcolax x1 RESOLVED -- + BM Continue to monitor (3) Metastatic adenocarcinoma to brain: Plan: See above (4) Adenocarcinoma of lung: Plan: RUL with mets to brain follows with Dr Lorenzana, CCP; and Dr Bro, rad onc (5) COPD (chronic obstructive pulmonary disease): Plan: Continue Arnuity Ellipta and Trelegy Ellipta. Wheezing on exam but largely asymptomatic today--denies any shortness of breath and decreased wheezing on examination 96% on room air Albuterol neb as needed Continue to monitor (6) Tobacco abuse: Plan: Can offer nicoderm if desired. 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 Had been taking 25 mg 3 times daily as above and had weaned to 25 mg twice daily without recurrence of her vertigo however she did note last evening 25 mg given was successful but this morning the 12.5 mg dose did seem to dizziness with therapy Change. 25 mg twice daily continue to monitor --> controlled and will continue on current dose but cautious w emotional lability -- at baseline currently but monitor (9) Encephalopathy acute: Plan: 2nd to brain mets with edema Resolved Sharp and giving exact dates and times for all previous procedures surgeries broken glass her foot as a child etc. cont dexamethasone Good night sleep 10/25 with melatonin 3mg HS and will continue. limit noises/close door/etc (10) Mild protein-calorie malnutrition: Plan: would add MVI, boost, etc if willing to take --has been agreeable to supplementation 2nd to lung cancer (11) Hypomagnesemia: Plan: Resolved, stable on repeat (12) DVT prophylaxis: Plan: heparin 5000 BID while inpatient -- has been refusing but ambulating. no calve edema/sob/hypotension reported but encouraged compliance Plan: continue dexamethasone Q8 as above --> changed to PO as above pepcid IV Bid for GI proph while on high-dose steroids --continue to monitor Concerns for going home alone with family support as her sister that typically helps is in rehab herself Adjustments to meclizine as above and continue to monitor progress with therapy but suspect patient be inpatient through the weekend discharged on Tuesday after her first radiation treatment to either home versus rehab based on her progress Continue PT/OT evals -- patient did well with strength but still slightly unst wagner --> continue to monitor as needs 24hr support vs assisted living and sister who usually helps is in rehab at [facility] currently Admission and Anticipated Discharge Date Admission Date: October 21, 2020 Supervising Physician Co-Signing Physician Notes PA Supervision Note: I did not personally see or examine the patient today, but I verified all moncada points of QUYNH Taylor's assessment and plan with the following exceptions/additions: None Subjective Patient eval this afternoon. Got good sleep. Good appetite. States burning with flushing of port with decadron/heparin. Will change to PO and see if avoidance of urinary burning with administration. If persistent will check UA but patient denies burning with urination or increased frequency. States family moving bed to first floor. Radiation for tomorrow and repeat eval by therapy -- if steady and someone able to go home health/home PT can consider d/c but otherwise she understands rehab would be best to ensure safety. No fever, chills, chest pain, shortness of breath, abdominal pain, nausea, vomiting at this time. Review of Systems Review of Systems: All systems reviewed & are unremarkable except as noted in HPI & below Physical Exam Physical Exam: gen - 60-year-old female who appears chronically ill, cachectic, remains labile at time. Cooperative and comfortable mouth - MMM; no thrush heart - RRR, s1 s2, no evidence of edema JVD lungs -continues to have faint bilateral wheezing (decreased) but stable on room air with SPO2 96% Abdomen with positive bowel sounds throughout, soft, non-tender, no guarding or rigidity ext - trace edema b/l psych - a/o x 3 , labile emotions Results & Data Results & Data ([facility]) Vital Signs (Past 12 Hours) Vital Signs Temp Pulse Resp BP Pulse Ox 10/25/20 23:38 36.7 C 75 16 108/72 96 Laboratory Results 10/26/20 10/26/20 Range/Units 06:01 06:01 WBC 8.63 (4.8-10.8) K/uL RBC 3.65 L (4.2-5.4) M/uL Hgb 13.0 (12.0-16.0) g/dL Hct 37.8 (37-47) % MCV 103.6 H (80-100) fL MCH 35.6 H (25-34) pg MCHC 34.4 (32-36) g/dL RDW Std Deviation 49.2 H (36.4-46.3) fL RDW Coeff of Jesús 12.9 (11.5-14.5) % Plt Count 306 (130-400) K/uL MPV 9.9 (7.4-10.4) fL Sodium 137 (136-145) mmol/L Potassium 3.8 (3.5-5.1) mmol/L Chloride 100 (98-107) mmol/L Carbon Dioxide 30 (21-32) mmol/L Anion Gap 6.0 (3-11) BUN 27 H (7-18) mg/dl Creatinine 0.63 (0.6-1.2) mg/dl Est Cr Clr Drug Dosing 58.5 ml/min Est GFR ( Amer) 111.4 ml/min Est GFR (Non-Af Amer) 96.1 ml/min BUN/Creatinine Ratio 42.6 H (10-20) Glucose 108 H (70-99) mg/dl Calcium 9.5 (8.5-10.1) mg/dl Total Bilirubin 0.2 (0.2-1) mg/dl AST 136 H (15-37) U/L ALT 249 H (12-78) U/L Alkaline Phosphatase 50 (45-117) U/L Total Protein 6.8 (6.4-8.2) gm/dl Albumin 3.5 (3.4-5.0) gm/dl Globulin 3.3 (2.5-4.0) gm/dl Albumin/Globulin Ratio 1.0 (0.9-2) PG Care Time/CCT Total # of Minutes Spent Total Time Spent with Patient: Total time spent is greater than 50% in coordination of care (as documented) at patient's floor/unit and/or counseling patient: Coding Level of Care Code 95211 Subseq Hosp Care Lvl 2 Diagnoses Vasogenic brain edema G93.6 Constipation K59.00 Metastatic adenocarcinoma to brain C79.31 Adenocarcinoma of lung C34.90 COPD (chronic obstructive pulmonary disease) J44.9 COPD type: unspecified COPD Tobacco abuse Z72.0 Underweight R63.6 Vertigo R42 Encephalopathy acute G93.40 Mild protein-calorie malnutrition E44.1 DVT prophylaxis Z29.9 Hypomagnesemia E83.42 (1) COPD (chronic obstructive pulmonary disease) COPD type: unspecified COPD Qualified Code(s): J44.9 - Chronic obstructive pulmonary disease, unspecified
--- NOTE | 2020-10-26 08:29 | Hospitalist Progress Note ---
Date of Service October 26, 2020 Assessment & Plan Admission and Anticipated Discharge Date Admission Date: October 21, 2020 Results & Data Results & Data ([facility]) Vital Signs (Past 12 Hours) Vital Signs Temp Pulse Resp BP Pulse Ox 10/25/20 23:38 36.7 C 75 16 108/72 96 PG Care Time/CCT Total # of Minutes Spent Total Time Spent with Patient: Total time spent is greater than 50% in coordination of care (as documented) at patient's floor/unit and/or counseling patient: Coding
[2020-10-26] MEDS: HEPARIN 100 UNIT/ML 5ML FLUSH FLUSH PRN (12:58)
[2020-10-26] MEDS: MELATONIN 3 MG TAB PO SCH (20:59)
[2020-10-26] MEDS: dexAMETHasone 4 MG TAB PO SCH (22:02)
[2020-10-27] MEDS: dexAMETHasone 4 MG TAB PO SCH ×2 (05:46→13:59)
[2020-10-27] MEDS: HEPARIN 100 UNIT/ML 5ML FLUSH FLUSH PRN (05:51)
[2020-10-27 06:55] LABS: Albumin Level 3.6 gm/dl (3.4-5.0); BUN Creatinine Ratio 39.2 (10-20); Calcium 9.4 mg/dl (8.5-10.1); Creatinine Clr Calc Pharmacy 43.3 ml/min; Est GFR (African American) 85.1 ml/min; Est GFR (Non-African American) 73.4 ml/min; Potassium 4.3 mmol/L (3.5-5.1)
[2020-10-27 06:58] LABS: Albumin Globulin Ratio 1.1 (0.9-2); Bilirubin,Total 0.3 mg/dl (0.2-1); Globulin 3.4 gm/dl (2.5-4.0)
[2020-10-27 08:17] VITALS: TEMP 98.1; O2SAT 96
[2020-10-27] MEDS: HEPARIN SOD 5,000 UNIT/0.5 ML VIAL SQ SCH (08:20)
[2020-10-27] MEDS: FLUTICASONE FUROATE 100MCG 14 PUFFS/INHALER INH SCH (08:22)
[2020-10-27] MEDS: POLYETHYLENE (MIRALAX) 17 GM PACK PO SCH (08:22)
[2020-10-27] MEDS: FAMOTIDINE 20 MG TAB PO SCH (08:22)
[2020-10-27] MEDS: UMECLIDINIUM/VILANTEROL 62.5/25MCG 7 PUFFS/INHALER INH SCH (08:22)
[2020-10-27] MEDS: DOCUSATE SODIUM 100 MG CAP PO SCH (08:22)
[2020-10-27] MEDS: MECLIZINE HCL 25 MG TAB PO SCH (08:22)
[2020-10-27 09:37] LABS: Hepatitis B Surf Ag Rflx Conf Neg (Neg)
[2020-10-27 10:05] LABS: Hepatitis C IgG 13Yrs+Old_Rflx Neg (Neg)
[2020-10-27 15:21] VITALS: BP 113/64; PULSE 75
--- NOTE | 2020-10-27 19:01 | Discharge Summary ---
Date of Service October 27, 2020 Admission HPI Per Admitting Provider The patient is a 60-year-old female with a past medical history including tobacco abuse, adenocarcinoma of lung, metastatic adenocarcinoma to brain, vertigo, dizziness, and COPD. She is referred to the emergency department due to altered mental status and progressive weakness. Work-up in the emergency department included CT scan of brain, which showed increasing vasogenic edema. Oncology Dr. Lorenzana was consulted by the ED, and recommends patient be admitted for IV Decadron and radiation therapy Principal Diagnosis vasogenic edema from brain metastases Discharge Exam General she is awake and alert pleasant somewhat anxious about wanting to go home, but otherwise in no distress. HEENT normocephalic atraumatic mucous membranes are moist. Breathing unlabored no accessory muscle use good effort. Abdomen is soft nondistended nontender no masses organomegaly. Specifically no right upper quadrant tenderness. Extremities show no cyanosis clubbing or edema. She does appear somewhat thin and frail. Discharge Data Allergies Allergy/AdvReac Type Severity Reaction Status Date / Time No Known Allergies Allergy Verified 10/21/20 11:57 Consultations 10/21/20 13:05 ED Decision to Admit Stat 10/21/20 13:14 Consult Radiation Oncology Routine Ordered Studies 10/21/20 10:39 CT head/brain wo con Stat 10/21/20 14:50 MR brain wo/w con Stat Hospital Course (1) Vasogenic brain edema: 2nd brain mets from lung ca. clinically improved. Mentation improved. Starting radiation treatment today, follow-up treatments have been set up Desperately wants to go home, and expresses good family and community support. Further her PT evaluation from even 2 days ago showed her being able to return home, and she has shown improvement since then. Stable for home, family and community support, close outpatient follow-up. (2) Transaminitis: Appears hepatocellular. Absolutely no symptoms. Question mets versus med side effect. Definitely needs work-up further, discussed this with patient, she really wants to go home, and given that she is asymptomatic from this, and willing to have close follow-up, seems reasonable for her to go home. Did discuss the potential need for readmission should this worsen or need more urgent further work-up, but appears stable for outpatient at this time. LFTs on 10/29, right upper quadrant ultrasound in the next 1 to 2 days. Avoid hepatoto xic meds. Return if worsening/if symptoms. (3) Constipation: Improved with bowel regimen. (4) Metastatic adenocarcinoma to brain: See above (5) Adenocarcinoma of lung: RUL with mets to brain follows with Dr Lorenzana, CCP; and Dr Santizo, rad onc (6) COPD (chronic obstructive pulmonary disease): Continue Arnuity Ellipta and Trelegy Ellipta. He is on room air. Stable for home. 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 (10) Encephalopathy acute: 2nd to brain mets with edema Resolved (11) Mild protein-calorie malnutrition: Related to lung cancer. Outpatient follow-up. (12) Hypomagnesemia: Resolved, stable on repeat (13) DVT prophylaxis: heparin 5000 BID while inpatient -- has been refusing but ambulating. Total Time Total Time Spent Total Time Spent (In Minutes): >30 Discharge Plan Discharge Items Patient Disposition: Home - Self-Care Reason For Visit: VASOGENIC EDEMA DUE TO BRAIN METS Discharge Diagnosis: brain swelling due to cancer spread (see below) Activity: Per Instructions section Activity Comment: take it easy and slow - value being safe first. Non-emergency contact: Primary Care Provider and Oncologist Call non-emergency contact if: you have any medication questions and your symptoms worsen Follow-up/Referrals: Bo Hutchison MD [Primary Care Provider] - 10/29/20 2:00 pm (Appointment will be with PEDRO Davila) Diet: Regular Addtl Attending Provider Instructions: brain spread of cancer / swelling -your dizziness and unsteadiness appear to have been related to spots of cancer that have spread to your brain. typically those kinds of spots also then create surrounding swelling. all of this led to you being dizzy. fortunately with the steroids (dexamethasome) you're doing better - suggesting strongly that the steroids have reduced the swelling a good deal. additionally, the radiation treatments should help shrink the spots of cancer and hopefully reduce symptoms even further -continue to take the dexamethasone 4mg three times a day (about every 8 hours) until directed otherwise by dr santizo - as we discussed, it's kind of impossible to predict how long you'll need it at that dosing, and when you might be able to reduce it down -- so the prescription will look as though 4mg three times a day is an indefinite dosing regimen - but as they see how you're doing, expect them to hopefully be able to help you reduce it down -while you're doing well enough it's reasonable to let you go home, it also would be reasonable to look at doing rehab to try to improve how steady you are/etc --> to that end, if you get home and realize that you don't feel safe, we'd prefer you come back here for us to work on setting up rehab rather than staying at home if the situation is dangerous and then having a bad fall. -when you're getting around, value safety first -- when you're getting up from bed, or getting out of a chair - take a good minute or two of just sitting up before you stand, or standing up before you walk - so that if you were to feel dizzy or lose your balance you can lay back down in the bed or sit back down in the chair rather than falling elevated liver enzymes -as we discussed, your liver enzymes went from normal to fairly elevated over the last few days - in a pattern that suggests liver inflamation. -while there are not any medicines that we're using that are overtly known to be upsetting to the liver, the pattern really looks like a med side effect -since you're feeling OK and will be having really close follow up, it's ok to continue to get to the bottom of this / follow it through as an outpatient, but it's definitely still a work in progress, and if things were to continue to head in the wrong direction or you were to start to feel symptoms (pain and fullness in your upper abdomen, nausea, inability to eat) then we might need to admit you again specifically for this -as part of the routine workup we have sent labs to check for different viral hepatitises -- what's come back so far are negative (hep C, and one of the tests we use for hep B), but the other test for hep B and the test for hep A are still pending - they'll likely take a day or two to come back. likewise, i've ordered an ultrasound to look closely at your liver -- while it would be easier to just get it done before you go home, if they're not able to get it done today, it can be done in the next day or two as an outpatient -have labs checked again tuesday (CMP) and then ongoing follow up of those labs based on how things look/progress -get checked out right away if you have any pain/fullness in your upper abdomen, nausea/vomiting, or start to lose any interest in eating -avoid any meds that typically are upsetting to the liver (tylenol/acetaminophen most famously, but also ibuprofen, allve, naproxen, anti-inflammatories) -as we discussed, this could potentially relate to the cancer as well, but will be something that we need to keep a close eye on Pending Studies at Discharge: Yes Stand-Alone Forms: My [facility], Smoking Cessation Medications and DC Order Prescriptions: New dexamethasone 4 mg Tablet 4 mg PO Q8H Qty: 45 RF: 0 Continued albuterol sulfate 90 mcg/actuation HFA aerosol inhaler 2 puff INHALATION QID PRN (Reason: Shortness Of Breath Or Wheezing) RF: 0 Trelegy Ellipta 100-62.5-25 mcg Blister With Device 1 inh INHALATION DAILY RF: 0 meclizine 25 mg Tablet 25 mg PO TID PRN (Reason: dizziness) Qty: 90 RF: 0 Arnuity Ellipta 100 mcg/actuation Blister With Device 1 inh INHALATION DAILY RF: 0 Discharge Orders: Discharge Order (Routine); Ordered 10/27/20 Ordered By: Sherif De La Fuente Admission Data Admit Date/Time: 10/21/20 13:03 Attending Provider: Sherif De La Fuente Admit Provider: Meliton Cristobal Primary Care Provider: Bo Hutchison V. Other Providers: Meliton Cristobal ; Beverly Santizo ; [facility] ; [place],[facility], [place] ; Chanel Olvera Other Interventions: Discharge Summary Assessment (RN) Last Done: 10/27/20 15:19 Coding Level of Care Code D/C DAY MANAGEMENT >30 MINS Diagnoses Vasogenic brain edema G93.6 Constipation K59.00 Metastatic adenocarcinoma to brain C79.31 Adenocarcinoma of lung C34.90 COPD (chronic obstructive pulmonary disease) J44.9 COPD type: unspecified COPD Tobacco abuse Z72.0 Underweight R63.6 Vertigo R42 Encephalopathy acute G93.40 Mild protein-calorie malnutrition E44.1 Hypomagnesemia E83.42 DVT prophylaxis Z29.9 Transaminitis R74.01
[2020-10-28 13:30] LABS: Hepatitis A Antibody IgM NON-REACTIVE (NON-REACTIVE); Hepatitis B Core Antibody IgM NON-REACTIVE (NON-REACTIVE)
== END 2020-10-27 20:15 | disposition home or self-care (01) | DRG 54 ==
LOC: ED 10:14 → 3N 13:03 → SUATTDRO 13:03 → 3N 15:26 → 3W 10-23 16:13
DX: K59.00 Constipation, unspecified; F17.210 Nicotine dependence, cigarettes, uncomplicated; C34.90 Malignant neoplasm of unspecified part of unspecified bronchus or lung; R63.6 Underweight; E83.42 Hypomagnesemia; G93.40 Encephalopathy, unspecified; G93.6 Cerebral edema; J44.9 Chronic obstructive pulmonary disease, unspecified; E44.1 Mild protein-calorie malnutrition; Z68.1 Body mass index [BMI] 19.9 or less, adult; C79.31 Secondary malignant neoplasm of brain